=== PATIENT | male | born 1950 | race Caucasian/White ===

== ENCOUNTER 2020-03-25 06:37 | Outpatient (REF) | payer MEDICARE, SELFPAY ==
[2020-03-25 11:38] LABS: Hematocrit 42.2 % (42-52); Hemoglobin 13.9 g/dl (14.0-18.0); Mean Corpuscular HGB Conc 32.9 g/dl (31.0-36.0); Mean Corpuscular Hemoglobin 31.2 pg (27.0-33.0); Mean Corpuscular Volume 94.8 fL (80-98); Mean Platelet Volume 9.6 fL (9.4-12.4); Platelet Count 230 X10*3/uL (160-400); Red Blood Count 4.45 X10*6/uL (4.60-5.80); Red Cell Distribution Width 12.5 % (11.0-16.0); White Blood Count 5.2 X10*3/uL (4.8-10.8)
[2020-03-25 12:12] LABS: Alanine Aminotransferase 19 U/L (0-40); Albumin Level 4.2 g/dL (3.5-5.0); Alkaline Phosphatase 71 U/L (39-117); Anion Gap 10 (12-20); Aspartate Amino Transferase 21 U/L (5-37); Bilirubin Direct 0.3 mg/dL (0.0-0.5); Bilirubin Total 0.8 mg/dL (0.0-1.0); Blood Urea Nitrogen 20 mg/dL (9-16); Calcium 8.8 mg/dL (8.4-10.2); Carbon Dioxide 25 mmol/L (22-29); Chloride 110 mmol/L (96-108); Cholesterol 112 mg/dL; Estimated Glomerular Filt Rate > 60; Glucose Random 82 mg/dL (60-115); HDL Cholesterol 34 mg/dL; LDL Cholesterol Calculated 65 mg/dl; Potassium 4.9 mmol/l (3.3-5.1); Sodium 140 mmol/L (135-145); Total Protein 6.6 g/dL (6.5-8.0); Triglycerides 67 mg/dL
== END 2020-03-25 06:38 | disposition home or self-care (01) ==
LOC: HO.HMGCLDS 06:37
DX: I10 Essential (primary) hypertension (principal); E78.5 Hyperlipidemia, unspecified
CPT/HCPCS: 36415; 80053; 80061; 80076; 85027

== ENCOUNTER → 2020-04-26 09:21 | Outpatient (REF) | payer MEDICARE, SELFPAY ==
--- NOTE | 2020-04-26 09:30 | ECG_ITS ---
Hook-up date: 2020-04-26 09:41:00 Duration: 47:59:00 Test Indications: FREQUENT PVC'S Medications: 620861 QRS complexes 80 Ventricular ectopics which represent <1 % of total QRS comp. 293853 Supraventricular ectopics which represent 73 % of total QRS comp. * Paced QRS complexs which represent % of total QRS comp. VENTRICULAR ECTOPY 69 Isolated 0 Bigeminal Cycles 2 Couplets 2 Runs 7 Beats in Runs 4 Beats LONGEST at 137 BPM at 02:08:35 2020-04-28 3 Beats FASTEST at 166 BPM at 17:04:03 2020-04-26 SUPRAVENTRICULAR ECTOPY 51096 Isolated 4769 Couplets 8560 Runs 093202 Beats in Runs 1514 Beats LONGEST at 71 BPM at 10:16:44 2020-04-27 3 Beats FASTEST at 147 BPM at 16:19:54 2020-04-26 HEART RATES 42 MIN at 02:39:02 2020-04-27 62 AVG 145 MAX at 09:59:51 2020-04-26 LONGEST RR 0.9760 secs at 14:42:43 2020-04-26 S-T LEVELS Channel 1 - 128 mm at 09:41:00 2020-04-26 - 128 mm at 09:41:00 2020-04-26 Channel 2 - 128 mm at 09:41:00 2020-04-26 - 128 mm at 09:41:00 2020-04-26 Channel 3 - 128 mm at 02:90:01 -- - 128 mm at 02:90:01 Basic rhythm Normal sinus rhythm No long pause or profound bradycardia Very Frequent Premature atrial complexes Frequent runs of SVE's c/w PAT Rare Premature ventricular complexes 2 3-4 beats salvos of NSVT, fastest 3 beat at 166 bpm No diary submitted Referred By: Fior Cordero Overread By: SUMMER FLORES MD
--- NOTE | 2020-04-26 09:35 | ECG_ITS ---
Hook-up date: 2020-04-26 09:41:00 Duration: 47:59:00 Test Indications: FREQUENT PVC'S Medications: 782049 QRS complexes 80 Ventricular ectopics which represent <1 % of total QRS comp. 168397 Supraventricular ectopics which represent 71 % of total QRS comp. * Paced QRS complexs which represent % of total QRS comp. VENTRICULAR ECTOPY 69 Isolated 0 Bigeminal Cycles 2 Couplets 2 Runs 7 Beats in Runs 4 Beats LONGEST at 137 BPM at 02:08:35 2020-04-28 3 Beats FASTEST at 166 BPM at 17:04:03 2020-04-26 SUPRAVENTRICULAR ECTOPY 19772 Isolated 4906 Couplets 9454 Runs 815469 Beats in Runs 765 Beats LONGEST at 80 BPM at 12:27:21 2020-04-26 3 Beats FASTEST at 144 BPM at 19:34:34 2020-04-27 HEART RATES 42 MIN at 02:39:02 2020-04-27 62 AVG 145 MAX at 09:59:51 2020-04-26 LONGEST RR 0.9760 secs at 14:42:43 2020-04-26 S-T LEVELS Channel 1 - 128 mm at 09:41:00 2020-04-26 - 128 mm at 09:41:00 2020-04-26 Channel 2 - 128 mm at 09:41:00 2020-04-26 - 128 mm at 09:41:00 2020-04-26 Channel 3 - 128 mm at 02:90:01 -- - 128 mm at 02:90:01 Referred By: Fior Cordero Overread By:
== END ==
LOC: HO.CARD 09:21
DX: I49.3 Ventricular premature depolarization (principal)
CPT/HCPCS: 93225; 93226

== ENCOUNTER → 2020-05-15 08:19 | Outpatient (BNVA) | payer MEDICARE, SELFPAY | PROVIDERS: Visit Provider Physician Assistant | DX: E66.9 Obesity, unspecified (principal); Z68.30 Body mass index [BMI] 30.0-30.9, adult | CPT/HCPCS: 99212 ==

== ENCOUNTER → 2020-07-24 13:51 | Outpatient (BNVA) | payer MEDICARE, SELFPAY | PROVIDERS: PCP Nurse Practitioner Family; Visit Provider Internal Medicine | DX: I47.1 Supraventricular tachycardia (principal); I47.2 Ventricular tachycardia; I10 Essential (primary) hypertension; G47.33 Obstructive sleep apnea (adult) (pediatric) | CPT/HCPCS: 93005; 99202 ==

== ENCOUNTER 2020-08-22 06:43 | Outpatient (REF) | payer MEDICARE, SELFPAY ==
[2020-08-22 12:22] LABS: Prostate Specific Antigen Scr 2.37 ng/mL (<0.05-4.0); TSH reflex Free T4 1.27 uIU/mL (0.32-4.0)
[2020-08-22 12:28] LABS: Alanine Aminotransferase 17 U/L (0-40); Albumin Level 4.4 g/dL (3.5-5.0); Alkaline Phosphatase 74 U/L (39-117); Anion Gap 13 (12-20); Aspartate Amino Transferase 22 U/L (5-37); Bilirubin Total 0.7 mg/dL (0.0-1.0); Blood Urea Nitrogen 21 mg/dL (9-16); Calcium 9.3 mg/dL (8.4-10.2); Carbon Dioxide 25 mmol/L (22-29); Chloride 109 mmol/L (96-108); Cholesterol 124 mg/dL; Estimated Glomerular Filt Rate > 60; Glucose Fasting 77 mg/dL (60-99); HDL Cholesterol 39 mg/dL; LDL Cholesterol Calculated 72 mg/dl; Potassium 4.6 mmol/L (3.3-5.1); Sodium 142 mmol/L (135-145); Total Protein 7.1 g/dL (6.5-8.0); Triglycerides 66 mg/dL
== END 2020-08-22 06:44 | disposition home or self-care (01) ==
LOC: HO.HMGCLDS 06:43
PROVIDERS: PCP Nurse Practitioner Family; Visit Provider Nurse Practitioner Family
DX: I10 Essential (primary) hypertension (principal); Z12.5 Encounter for screening for malignant neoplasm of prostate
CPT/HCPCS: 36415; 80053; 80061; 84153; 84443

== ENCOUNTER → 2020-09-04 08:17 | Outpatient (REF) | payer MEDICARE, SELFPAY ==
--- NOTE | ~2020-09-04 | NM_ITS ---
Exercise Myocardial perfusion study Indication: Ventricular tachycardia Technique: The patient was brought in for an exercise perfusion study on 09/04/2020. Patient performed exercise as per Mike protocol and was injected 30 mCi of sestamibi was given intravenously one target HR was achieved. Images were obtained using the SPECT gamma camera interlaced with the gating device. Images were obtained in supine position. Resting perfusion study was performed on 09/05/2020. Patient was administered 30 mCi of sestamibi intravenously at rest. Images were then obtained in supine position. Images obtained with and without CT attenuation. Total DLP 86 mGy-cm. Images were processed with the software and compared side to side in short axis, horizontal long axis and vertical long axis views. Findings: The stress perfusion study showed non attenuated images show small area of mildly reduced uptake in the basal inferolateral and inferior wall of the LV myocardium. Remainder of the LV myocardium is normally perfused. Suggestion of left ventricle hypertrophy attenuation corrected images show normal uptake of radiotracer in all segments of LV myocardium. The gated study shows low normal LV systolic function with calculated LVEF of 61%. LV cavity is normal in size. The gated study shows normal systolic wall thickening and contraction of all segments. There is no transient ischemic dilation. Resting study shows no change in perfusion pattern compared to stress perfusion study. Gating at rest reveals normal systolic wall motion with ejection fraction at 51%. The findings are consistent with normal myocardial perfusion. NM/NM cardiolite stress test Impression: 1. Normal myocardial perfusion 2. Gated LVEF is 51% 3. Transient ischemic dilatation not present Stress EKG is negative for ischemia
--- NOTE | 2020-09-04 08:21 | CA_ITS ---
Transthoracic Echocardiogram Patient (Last, First, Middle): Jomar Cordova L Gender: Male Date of : 1950 Age: 69 Procedure Date: 09/04/2020 Procedure Type: Transthoracic Echocardiogram Location: OP Height: 165.1 cm Weight: 83.92 kg BSA: 1.91 m2 Heart Rate: bpm BP: 126 / 68 mmHg Printing Services Coordinator: Referring MD: Lorenzo Luis MD Supervisor Orchard: Flex Mckeon MD Symptoms: I47.2 - Ventricular tachycardia Study Quality: Good ECG Rhythm: Ventricular ectopic Conclusions: - 1. Normal LV systolic function with mild LVH with pseudonormal filling pattern with possible apical variant of hypertrophic cardiomyopathy 2. Mild aortic regurgitation 3. Normal RV systolic pressure 4. Mildly dilated ascending aorta at 3.8 cm 5. No pericardial effusion Findings Procedure Information Contrast agent, definity, is being given per protocol without apparent complications. Left Ventricle Normal left ventricular size and systolic function. There is mildly increased left ventricular wall thickness. The visually estimated ejection fraction is between 65-70%. Spectral Doppler is indicative of a pseudonormal filling pattern. E/E prime ratio is between 8 and 15 consistent with indeterminate filling pressures. There is mild apical asymmetric hypertrophy. There is hyperdynamic contractility of the apex with obliteration of apical cavity suggestive of possibly apical variant of hypertrophic cardiomyopathy. Right Ventricle Normal right ventricular cavity size and systolic function. Atria The left atrium is likely dilated. There is no evidence of interatrial shunt. The right atrium is normal in size. Aortic Valve Normal aortic valve structure and function. There is no aortic valve stenosis. There is mild aortic valve regurgitation. Mitral Valve Normal mitral valve structure and function. There is trace mitral valve regurgitation. There is no mitral valve stenosis. Pulmonic Valve The pulmonic valve was not well visualized. Tricuspid Valve Likely normal tricuspid valve structure and function. There is trace tricuspid valve regurgitation. The right ventricular systolic pressure is normal. The right ventricular systolic pressure is 18 mmHg. Normal right atrial pressure. There is no evidence of pulmonary hypertension. Great Vessels The pulmonary artery was not well visualized. There is mild dilatation of the ascending aorta measuring 3.80 cm. Venous The inferior vena cava is normal in size and collapses greater than 50% with inspiration. Pericardium/Pleural There is no evidence of pericardial effusion. Prior Study Comparison No previous study in the last 5 years for comparison Measurements 2D Linear Measurements IVSd: 1.37 0.6-0.9/0.6-1.0 cm LVIDd: 5.32 3.9-5.3/4.2-5.9 cm LVIDd Index: 2.79 2.4-3.2/2.2-3.1 cm/m2 LVIDs: 3.04 2.0-3.6 cm LVPWd: 1.34 0.7-1.1 cm Ao Root: 3.80 2.1-3.5 cm LA Diam: 4.00 2.7-3.8/3.0-4.0 cm LAIDs Index: 2.09 1.5-2.3 cm/m2 LV Mass: 381.90 67-162/88-224 g LV Mass Index: 199.95 43-95/49-115 g/m2 LVOT Diam: 2.30 3.0+(-)1.3 cm Mitral Valve MV Pk E: 0.68 MV PK A: 0.49 MV Decel Time: 239.00 E/A: 1.40 E'Lateral: 7.25 E'Medial: 5.22 E/E' Med: 13.00 E/E' Lat: 9.40 PHT: 70.00 MVA PHT: 3.14 Decel [place]: 2.84 Aortic Valve AoV Pk Nestor: 1.27 AoV Mn Nestor: 0.85 AoV VTI: 0.29 AoV Pk Grad: 6.00 Aov Mn Grad: 3.00 ANNIA Cont.VTI: 3.13 LVOT LVOT Pk Nestor: 1.03 LVOT Mn Nestor: 0.63 LVOT VTI: 0.22 LVOT Pk Grad: 4.00 LVOT Mn Grad: 2.00 LVOT Diam: 2.30 LVOT Area: 4.15 Diastolic Function MV Pk E: 0.68 MV Pk A: 0.49 E/A: 1.40 E'Medial: 5.22 E/E' Med: 13.00 E' Laterial: 7.25 E/E' Lat: 9.40 Tricuspid Valve TR Pk Nestor: 1.94 TR Pk Grad: 15.00 RA Press: 3.00 RVSP: 18.00 Great Vessels Aorta Ao Root-2D: 3.80 2.0-3.7 cm Ao Asc: 3.80 2.1-3.4 cm Updated in Other Vendor System with Status of Final Flex Mckeon MD electronically signed on 09/05/2020 5:02:16 PM with status of Final
--- NOTE | 2020-09-04 09:35 | CA_ITS ---
Acquisition Time: 2020-09-04 09:47:09 Total Exercise Time: 00:07:07 Test Indications: Abnormal ECG Medications: ATORVASTATIN DILTIAZEM IRON LISINOPRIL Protocol: JAZMYN Max HR: 127 BPM 84% of Pred: 151 BPM Max BP: 172/068 mmHG Max Work Load: 8.6 METS Exercise stress nuclear using Jazmyn protocol, total of 7 min 7 sec. METS 8.60 and TAPHR up to 84%. Pt tolerated well, some SOB, however no other anginal sx. EKG with T wave inversions inferirly and some anterior and lateral leads. No changes seen during exercise or in recovery. Nuclear images to follow. Normotensive response to exercise. Test reviewed with Dr. Mckeon. Referred By: Lorenzo Luis Overread By: Camille Smalls NP
== END ==
LOC: HO.CARD 08:17
PROVIDERS: Visit Provider Internal Medicine
DX: I47.2 Ventricular tachycardia (principal); R94.31 Abnormal electrocardiogram [ECG] [EKG]; Z79.899 Other long term (current) drug therapy
CPT/HCPCS: 78452; 93016; 93017; 93018; 93306; A9500; Q9957

== ENCOUNTER → 2020-09-24 10:49 | Outpatient (BNVA) | payer MEDICARE, SELFPAY | PROVIDERS: PCP Nurse Practitioner Family; Visit Provider Psychiatry & Neurology Neurology | DX: G47.33 Obstructive sleep apnea (adult) (pediatric) (principal) | CPT/HCPCS: 99215; Q3014 ==

== ENCOUNTER → 2020-10-01 14:03 | Outpatient (BNVA) | payer MEDICARE, SELFPAY | PROVIDERS: PCP Nurse Practitioner Family; Visit Provider Internal Medicine | DX: I47.1 Supraventricular tachycardia (principal); I47.2 Ventricular tachycardia; I10 Essential (primary) hypertension; G47.33 Obstructive sleep apnea (adult) (pediatric) | CPT/HCPCS: 99212 ==

== ENCOUNTER → 2020-10-08 13:51 | Outpatient (REF) | payer MEDICARE, SELFPAY | LOC: HO.SL 13:51 | PROVIDERS: PCP Nurse Practitioner Family; Visit Provider Psychiatry & Neurology Neurology | DX: G47.33 Obstructive sleep apnea (adult) (pediatric) (principal); I47.1 Supraventricular tachycardia | CPT/HCPCS: 95806 ==

== ENCOUNTER → 2020-12-03 08:55 | Outpatient (BNVA) | payer MEDICARE, SELFPAY | PROVIDERS: PCP Nurse Practitioner Family; Visit Provider Psychiatry & Neurology Neurology | CPT/HCPCS: Q3014 ==

== ENCOUNTER → 2021-02-18 10:20 | Outpatient (BNVA) | payer MEDICARE, SELFPAY | PROVIDERS: PCP Nurse Practitioner Family; Visit Provider Psychiatry & Neurology Neurology | DX: Z13.89 Encounter for screening for other disorder (principal) | CPT/HCPCS: Q3014 ==

== ENCOUNTER → 2021-04-08 12:49 | Outpatient (BNVA) | payer MEDICARE, SELFPAY | PROVIDERS: PCP Nurse Practitioner Family; Referring Provider Nurse Practitioner Family; Visit Provider Internal Medicine | DX: I47.1 Supraventricular tachycardia (principal); I47.2 Ventricular tachycardia; I10 Essential (primary) hypertension; G47.33 Obstructive sleep apnea (adult) (pediatric) | CPT/HCPCS: 99212 ==

== ENCOUNTER → 2021-05-06 10:26 | Outpatient (BNVA) | payer MEDICARE, SELFPAY | PROVIDERS: PCP Nurse Practitioner Family; Referring Provider Nurse Practitioner Family; Visit Provider Psychiatry & Neurology Neurology | CPT/HCPCS: Q3014 ==

== ENCOUNTER → 2021-05-21 08:16 | Outpatient (BNVA) | payer MEDICARE, SELFPAY | PROVIDERS: PCP Nurse Practitioner Family; Referring Provider Nurse Practitioner Family; Visit Provider Physician Assistant | DX: E66.9 Obesity, unspecified (principal); Z90.3 Acquired absence of stomach [part of]; Z98.84 Bariatric surgery status; Z68.31 Body mass index [BMI] 31.0-31.9, adult | CPT/HCPCS: 99212 ==

== ENCOUNTER 2021-05-22 07:29 | Outpatient (REF) | payer MEDICARE, SELFPAY ==
[2021-05-22 12:05] LABS: Vitamin D 25-OH Total 21.5 ng/mL (>30)
[2021-05-22 12:40] LABS: Folate > 20.0 ng/mL (> or = 4.0)
[2021-05-22 14:03] LABS: Vitamin B12 306 pg/mL (200-900)
[2021-05-26 09:01] LABS: Vitamin B1 24 nmol/L (8-30)
== END 2021-05-22 07:30 | disposition home or self-care (01) ==
LOC: HO.HMGCLDS 07:29
PROVIDERS: PCP Nurse Practitioner Family; Visit Provider Physician Assistant
DX: Z90.3 Acquired absence of stomach [part of] (principal); Z98.84 Bariatric surgery status
CPT/HCPCS: 36415; 82306; 82607; 82746; 84425

== ENCOUNTER → 2021-07-08 09:19 | Outpatient (BNVA) | payer MEDICARE, SELFPAY | PROVIDERS: PCP Nurse Practitioner Family; Referring Provider Nurse Practitioner Family; Visit Provider Psychiatry & Neurology Neurology | DX: G47.33 Obstructive sleep apnea (adult) (pediatric) (principal) | CPT/HCPCS: 99212 ==

== ENCOUNTER → 2021-08-19 20:47 | Outpatient (REF) | payer MEDICARE, SELFPAY | LOC: HO.SL 20:47 | PROVIDERS: PCP Nurse Practitioner Family; Visit Provider Psychiatry & Neurology Neurology | DX: G47.33 Obstructive sleep apnea (adult) (pediatric) (principal) | CPT/HCPCS: 95811 ==

== ENCOUNTER 2021-08-29 06:25 | Outpatient (REF) | payer MEDICARE, SELFPAY ==
[2021-08-29 11:49] LABS: Appearance Urine TURBID; Color Urine YELLOW; Glucose Urine UA NEG (NEG); Leukocyte Esterase Urine NEG (NEG); Nitrite Urine NEG (NEG); Specific Gravity - Urine >= 1.030 (1.005-1.025); Urine Blood NEG (NEG); Urine Ketones NEG (NEG); Urine Protein NEG (NEG-TRACE)
[2021-08-29 12:16] LABS: Alanine Aminotransferase 17 U/L (0-40); Albumin Level 4.1 g/dL (3.5-5.0); Alkaline Phosphatase 67 U/L (39-117); Anion Gap 12 (12-20); Aspartate Amino Transferase 23 U/L (5-37); Bilirubin Total 0.8 mg/dL (0.0-1.0); Blood Urea Nitrogen 18 mg/dL (9-16); Calcium 9.3 mg/dL (8.4-10.2); Carbon Dioxide 23 mmol/L (22-29); Chloride 112 mmol/L (96-108); Cholesterol 107 mg/dL; Estimated Glomerular Filt Rate > 60; Glucose Fasting 89 mg/dL (60-99); HDL Cholesterol 38 mg/dL; LDL Cholesterol Calculated 57 mg/dl; Potassium 4.6 mmol/L (3.3-5.1); Sodium 142 mmol/L (135-145); Total Protein 6.7 g/dL (6.5-8.0); Triglycerides 61 mg/dL
[2021-08-29 12:41] LABS: Prostate Specific Antigen Scr 2.28 ng/mL (<0.05-4.0); TSH reflex Free T4 1.27 uIU/mL (0.32-4.0)
== END 2021-08-29 06:26 | disposition home or self-care (01) ==
LOC: HO.HMGCLDS 06:25
PROVIDERS: Visit Provider Nurse Practitioner Family
DX: Z00.00 Encounter for general adult medical examination without abnormal findings (principal); Z12.5 Encounter for screening for malignant neoplasm of prostate
CPT/HCPCS: 36415; 80053; 80061; 81003; 84153; 84443

== ENCOUNTER → 2021-09-02 14:51 | Outpatient (REF) | payer MEDICARE, SELFPAY ==
--- NOTE | 2021-09-02 14:54 | HM_ITS ---
* Total monitoring time 2 days and 23 hours. * Underlying rhythm is sinus bradycardia. * Average rate 56/Min; range 42 to 96/Min. About 19% the time, rate less than 60/Min. * No atrial fibrillation or flutter or AV blocks or pauses. * Frequent supraventricular ectopy; burden of 6%. 209 runs. Longest 36 beats. * One strip with 8 beat run of VT could cannot exclude supraventricular origin. * No patient events. MTDD
== END ==
LOC: HO.CARD 14:51
PROVIDERS: Visit Provider Internal Medicine
DX: I47.1 Supraventricular tachycardia (principal)
CPT/HCPCS: 93242

== ENCOUNTER 2021-09-04 07:53 | Outpatient (REF) | payer MEDICARE, SELFPAY ==
[2021-09-04 11:16] LABS: MANUAL DIFF FLAG NO
[2021-09-04 11:26] LABS: Basophils Percent Auto 0.2 % (0-2); Eosinophils Absolute Auto 0.2 X10*3/uL (0.0-0.4); Eosinophils Percent Auto 2.8 % (0-4); Hematocrit 42.3 % (42.0-52.0); Hemoglobin 14.2 g/dl (14.0-18.0); Imm Gran Abs Auto 0.03 X10*3/uL (0.00-0.03); Imm Gran Pct Auto 0.5 % (0.0-0.4); Lymphocytes Absolute Auto 1.5 X10*3/uL (1.2-4.9); Lymphocytes Percent Auto 26.7 % (20-40); Mean Corpuscular HGB Conc 33.6 g/dl (31.0-36.0); Mean Corpuscular Hemoglobin 31.6 pg (27.0-33.0); Mean Platelet Volume 9.7 fL (9.4-12.4); Monocytes Absolute Auto 0.8 X10*3/uL (0.1-1.2); Monocytes Percent Auto 13.1 % (2-11); Neutrophils Absolute Auto 3.3 x10*3/uL (2.0-8.3); Neutrophils Percent Auto 56.7 % (45-73); Platelet Count 234 X10*3/uL (160-400); Red Cell Distribution Width 11.9 % (11.0-16.0); White Blood Count 5.7 X10*3/uL (4.8-10.8)
== END 2021-09-04 07:54 | disposition home or self-care (01) ==
LOC: HO.HMGCLDS 07:53
PROVIDERS: Visit Provider Nurse Practitioner Family
DX: G47.33 Obstructive sleep apnea (adult) (pediatric) (principal)
CPT/HCPCS: 36415; 85025

== ENCOUNTER → 2021-09-09 11:17 | Outpatient (BNVA) | payer MEDICARE, SELFPAY | PROVIDERS: PCP Nurse Practitioner Family; Visit Provider Psychiatry & Neurology Neurology | DX: G47.33 Obstructive sleep apnea (adult) (pediatric) (principal) | CPT/HCPCS: 99212 ==

== ENCOUNTER → 2021-09-26 09:18 | Outpatient (BNVA) | payer MEDICARE, SELFPAY | PROVIDERS: PCP Nurse Practitioner Family; Referring Provider Nurse Practitioner Family; Visit Provider Physician Assistant | DX: E66.9 Obesity, unspecified (principal); I10 Essential (primary) hypertension; E78.5 Hyperlipidemia, unspecified; Z90.3 Acquired absence of stomach [part of]; Z98.84 Bariatric surgery status; Z71.3 Dietary counseling and surveillance | CPT/HCPCS: 99212 ==

== ENCOUNTER → 2021-09-30 12:20 | Outpatient (BNVA) | payer MEDICARE, SELFPAY | PROVIDERS: PCP Nurse Practitioner Family; Referring Provider Nurse Practitioner Family; Visit Provider Internal Medicine | DX: I47.1 Supraventricular tachycardia (principal); I47.2 Ventricular tachycardia; I11.0 Hypertensive heart disease with heart failure; I42.2 Other hypertrophic cardiomyopathy; G47.33 Obstructive sleep apnea (adult) (pediatric) | CPT/HCPCS: 93005; 99212 ==

== ENCOUNTER → 2021-11-04 11:16 | Outpatient (BNVA) | payer MEDICARE, SELFPAY | PROVIDERS: PCP Nurse Practitioner Family; Visit Provider Psychiatry & Neurology Neurology | DX: G47.33 Obstructive sleep apnea (adult) (pediatric) (principal) | CPT/HCPCS: 99212 ==

== ENCOUNTER → 2021-11-14 08:37 | Outpatient (REF) | payer MEDICARE, SELFPAY ==
--- NOTE | 2021-11-14 08:40 | CA_ITS ---
Transthoracic Echocardiogram Patient (Last, First, Middle): Jomar Cordova L Gender: Male Date of : 1950 Age: 71 Procedure Date: 11/14/2021 Procedure Type: Transthoracic Echocardiogram Location: OP Height: 167.64 cm Weight: 87.54 kg BSA: 1.97 m2 Heart Rate: bpm BP: 130 / 70 mmHg Groundman/Lineman: SHIVANI Referring MD: Lorenzo Luis MD Symptoms: I42.2 - Other hypertrophic cardiomyopathy Study Quality: Fair/Contrast Conclusions: - 1. Normal LV systolic function with mild LVH with apical variant of hypertrophic cardiomyopathy with pseudonormal filling pattern 2. Trace aortic regurgitation 3. Normal RV systolic pressure 4. Mildly dilated ascending aorta at 4.1 cm 5. No gross pericardial effusion Findings Procedure Information Contrast agent, definity, is being given per protocol without apparent complications. Left Ventricle Normal left ventricular size and systolic function. There is mildly increased left ventricular wall thickness. The visually estimated ejection fraction is between 60-65%. Spectral Doppler is indicative of a pseudonormal filling pattern. E/E prime ratio is between 8 and 15 consistent with indeterminate filling pressures. There is moderate apical asymmetric hypertrophy. Right Ventricle Normal right ventricular cavity size and systolic function. Atria The left atrium is likely dilated. Interatrial shunt cannot be excluded. The right atrium is normal in size. Aortic Valve Normal aortic valve structure and function. There is no aortic valve stenosis. There is trace (trivial) aortic valve regurgitation. Mitral Valve Normal mitral valve structure and function. There is trace mitral valve regurgitation. There is no mitral valve stenosis. Pulmonic Valve The pulmonic valve is likely normal. There is trace pulmonic valve regurgitation. Tricuspid Valve Normal tricuspid valve structure. There is trace tricuspid valve regurgitation. The right ventricular systolic pressure is normal. The right ventricular systolic pressure is 24 mmHg. Normal right atrial pressure. There is no evidence of pulmonary hypertension. Great Vessels The pulmonary artery was not well visualized. There is mild dilatation of the ascending aorta measuring 4.10 cm. Venous The inferior vena cava is normal in size and collapses greater than 50% with inspiration. Pericardium/Pleural There is no evidence of pericardial effusion. Prior Study Comparison No significant change compared to prior study dated: 09/04/2020. Measurements 2D Linear Measurements IVSd: 1.21 0.6-0.9/0.6-1.0 cm LVIDd: 5.34 3.9-5.3/4.2-5.9 cm LVIDd Index: 2.71 2.4-3.2/2.2-3.1 cm/m2 LVIDs: 3.49 2.0-3.6 cm LVPWd: 1.19 0.7-1.1 cm LA Diam: 3.80 2.7-3.8/3.0-4.0 cm LAIDs Index: 1.93 1.5-2.3 cm/m2 LV Mass: 323.87 67-162/88-224 g LV Mass Index: 164.40 43-95/49-115 g/m2 LVOT Diam: 2.20 3.0+(-)1.3 cm 2D Systolic Function EF 4C: 69.30 >55% EF 2C: 60.90 >55% EF BiP: 64.50 >55% Mitral Valve MV Pk E: 0.79 MV PK A: 0.40 MV Decel Time: 227.00 E/A: 2.00 E'Lateral: 6.85 E'Medial: 6.09 E/E' Med: 12.90 E/E' Lat: 11.50 PHT: 66.00 MVA PHT: 3.33 Decel [place]: 3.47 Aortic Valve AoV Pk Nestor: 1.41 AoV Mn Nestor: 0.93 AoV VTI: 0.26 AoV Pk Grad: 8.00 Aov Mn Grad: 4.00 ANNIA Cont.VTI: 2.85 LVOT LVOT Pk Nestor: 0.92 LVOT Mn Nestor: 0.59 LVOT VTI: 0.20 LVOT Pk Grad: 3.00 LVOT Mn Grad: 2.00 LVOT Diam: 2.20 LVOT Area: 3.80 Diastolic Function MV Pk E: 0.79 MV Pk A: 0.40 E/A: 2.00 E'Medial: 6.09 E/E' Med: 12.90 E' Laterial: 6.85 E/E' Lat: 11.50 Right Ventricle TAPSE (mm): 20.40 TVS' Nestor: 15.10 Tricuspid Valve TR Pk Nestor: 2.31 TR Pk Grad: 21.00 RA Press: 3.00 RVSP: 24.00 Great Vessels Aorta Sinus of Valsalva: 3.83 2.0-3.[address] [place]: 3.63 1.7-3.4 cm Ao Asc: 4.10 2.1-3.4 cm Ao Arch: 3.40 Updated in Other Vendor System with Status of Final Flex Mckeon MD electronically signed on 11/14/2021 2:51:07 PM with status of Final
== END ==
LOC: HO.CARD 08:37
PROVIDERS: PCP Nurse Practitioner Family; Visit Provider Internal Medicine
DX: I42.2 Other hypertrophic cardiomyopathy (principal)
CPT/HCPCS: 93306; Q9957

== ENCOUNTER → 2022-03-27 09:17 | Outpatient (BNVA) | payer MEDICARE, SELFPAY | PROVIDERS: PCP Nurse Practitioner Family; Referring Provider Nurse Practitioner Family; Visit Provider Physician Assistant | DX: E66.9 Obesity, unspecified (principal); Z68.32 Body mass index [BMI] 32.0-32.9, adult | CPT/HCPCS: 99212 ==

== ENCOUNTER → 2022-04-01 12:31 | Outpatient (BNVA) | payer MEDICARE, SELFPAY | PROVIDERS: PCP Nurse Practitioner Family; Referring Provider Nurse Practitioner Family; Visit Provider Internal Medicine | DX: I47.1 Supraventricular tachycardia (principal); I42.2 Other hypertrophic cardiomyopathy; I10 Essential (primary) hypertension; I71.21 Aneurysm of the ascending aorta, without rupture; G47.33 Obstructive sleep apnea (adult) (pediatric) | CPT/HCPCS: 99212 ==

== ENCOUNTER → 2022-05-05 14:02 | Outpatient (BNVA) | payer MEDICARE, SELFPAY | PROVIDERS: PCP Nurse Practitioner Family; Visit Provider Psychiatry & Neurology Neurology | DX: G47.33 Obstructive sleep apnea (adult) (pediatric) (principal) | CPT/HCPCS: 99212 ==

== ENCOUNTER 2023-03-11 07:19 | Outpatient (REF) | payer MEDICARE, SELFPAY ==
[2023-03-11 11:33] LABS: MANUAL DIFF FLAG NO
[2023-03-11 11:46] LABS: Basophils Percent Auto 0.2 % (0-2); Eosinophils Absolute Auto 0.2 X10*3/uL (0.0-0.4); Eosinophils Percent Auto 3.2 % (0-4); Hematocrit 44.3 % (42.0-52.0); Hemoglobin 14.7 g/dl (14.0-18.0); Imm Gran Abs Auto 0.01 X10*3/uL (0.00-0.03); Imm Gran Pct Auto 0.2 % (0.0-0.4); Lymphocytes Absolute Auto 1.1 X10*3/uL (1.2-4.9); Lymphocytes Percent Auto 22.6 % (20-40); Mean Corpuscular HGB Conc 33.2 g/dl (31.0-36.0); Mean Corpuscular Hemoglobin 31.1 pg (27.0-33.0); Mean Corpuscular Volume 93.9 fL (80.0-98.0); Mean Platelet Volume 9.6 fL (9.4-12.4); Monocytes Absolute Auto 0.6 X10*3/uL (0.1-1.2); Monocytes Percent Auto 12.7 % (2-11); Neutrophils Absolute Auto 3.1 x10*3/uL (2.0-8.3); Neutrophils Percent Auto 61.1 % (45-73); Platelet Count 220 X10*3/uL (160-400); Red Blood Count 4.72 X10*6/uL (4.60-5.80); Red Cell Distribution Width 12.8 % (11.0-16.0); White Blood Count 5.1 X10*3/uL (4.8-10.8)
[2023-03-11 12:00] LABS: Appearance Urine Turbid; Color Urine Yellow; Glucose Urine UA Negative (Negative); Leukocyte Esterase Urine Negative (Negative); Nitrite Urine Negative (Negative); Specific Gravity - Urine 1.025 (1.005-1.025); Urine Blood Negative (Negative); Urine Ketones Negative (Negative); Urine Protein Negative (Neg-Trace)
[2023-03-11 12:15] LABS: Alanine Aminotransferase 22 U/L (0-40); Alkaline Phosphatase 72 U/L (39-117); Anion Gap 12 (12-20); Aspartate Amino Transferase 26 U/L (5-37); Blood Urea Nitrogen 17 mg/dL (9-16); Calcium 9.5 mg/dL (8.4-10.2); Carbon Dioxide 24 mmol/L (22-29); Chloride 110 mmol/L (96-108); Cholesterol 117 mg/dL (<200); Estimated Glomerular Filt Rate > 60; Glucose Fasting 86 mg/dL (60-99); HDL Cholesterol 37 mg/dL (>40); LDL Cholesterol Calculated 68 mg/dL (<100); Sodium 141 mmol/L (135-145); Total Protein 7.3 g/dL (6.5-8.0); Triglycerides 62 mg/dL (<150)
[2023-03-11 12:26] LABS: Prostate Specific Antigen Scr 2.89 ng/mL (<0.05-4.0)
[2023-03-11 12:30] LABS: TSH reflex Free T4 1.11 uIU/mL (0.32-4.0)
== END 2023-03-11 07:20 | disposition home or self-care (01) ==
LOC: HO.HMGCLDS 07:19
PROVIDERS: PCP Nurse Practitioner Family; Visit Provider Nurse Practitioner Family
DX: Z00.00 Encounter for general adult medical examination without abnormal findings (principal); Z12.5 Encounter for screening for malignant neoplasm of prostate; Z20.2 Contact with and (suspected) exposure to infections with a predominantly sexual mode of transmission; I10 Essential (primary) hypertension; E78.5 Hyperlipidemia, unspecified
CPT/HCPCS: 36415; 80053; 80061; 81003; 84153; 84443; 85025

== ENCOUNTER 2023-04-01 10:07 | Outpatient (AMB) | payer MEDICARE, SELFPAY ==
--- NOTE | 2023-04-01 10:19 | MHC.OFFVIS ---
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 Has a history of supraventricular arrhythmias as well as NSVT. Also echocardiogram had shown apical variant of hypertrophic cardiomyopathy. From cardiac, no symptoms like angina or shortness of breath or in fact anything else. He states he is doing good. [facility] Medical History Essential hypertension Hx of skin cancer, basal cell BARTOLO (obstructive sleep apnea) Surgical History Hx of colonoscopy Hx of hernia repair Hx of arthroscopic knee surgery Family History Father No problems noted. Mother No problems noted. Brother Parkinson disease Brother No problems noted. Sister Pacemaker Sister No problems noted. Son No problems noted. Social History Household Members: [facility] Alcohol intake: never Patient Tobacco Use Status: Never used Tobacco e-Cigarette/Vaping Use: Never Used Second Hand Smoke Exposure: No Current occupational status: retired Cognitive needs: No Hearing needs: No Vision needs: No Review of Systems Const Denies weakness ENT Denies dizziness Card Denies chest pain, Denies chest pain with activity, Denies syncope, Denies rapid heart rate, Denies pedal edema, Denies edema, Denies leg edema, Denies lightheadedness, Denies palpitations, Denies dyspnea, Denies dyspnea on exertion and Denies orthopnea Resp Denies cough, Denies dyspnea and Denies dyspnea on exertion GI Denies hematochezia and Denies change in stool character Musc Denies abnormal gait, Denies muscle cramps, Denies muscle weakness, Denies numbness, Denies radiating pain into limb and Denies tingling Neuro Denies abnormal gait, Denies dizziness, Denies syncope, Denies numbness, Denies tingling and Denies weakness Endo Denies palpitations Physical Exam Vital Signs: Last Vital Signs Pulse 63 04/01/23 10:21 BP 112/76 04/01/23 10:21 BMI result Body Mass Index 33.1 Const General: comfortable and no acute distress Orientation/consciousness: patient oriented x3 HEENT Other: Unremarkable Head: Yes normal to inspection Neck Neck: Yes normal visual inspection Chest Chest palpation & inspection: normal inspection of the chest Resp Auscultation: clear to auscultation bilaterally Cardio Palpation: normal PMI Heart sounds: S1 normal heart sound present, S2 normal heart sound present, no gallops, no murmurs and no rubs GI Palpation (GI): Soft to palpation Back/Spine/Pelvis Other: unremarkable Skin General skin exam: no rashes or lesions noted Neuro General: patient oriented x3 Extrem General: Yes normal to inspection Psych Mental Status: mental status grossly normal Assessment & Plan Assessment & Plan (1) Atrial tachycardia: Code(s): I47.1 - Supraventricular tachycardia Plan: Continue diltiazem. Increased chance of getting atrial fibrillation the future. (2) NSVT (nonsustained ventricular tachycardia): Code(s): I47.2 - Ventricular tachycardia Plan: In the Holter, 1 strip of 8 beat run but could not exclude supraventricular nature. No symptoms either. Does not appear to be of major significance. Myocardial perfusion imaging study shows normal perfusion. In the exercise stress test, he was able to exercise for 8.6 Mets without any significant arrhythmias. (3) Apical variant hypertrophic cardiomyopathy: Code(s): I42.2 - Other hypertrophic cardiomyopathy Plan: Echocardiograms have been thought to be suggestive of apical asymmetric hypertrophy. No specific symptoms. We can recheck another study. Also discussed about family screening today. (4) Essential hypertension: Code(s): I10 - Essential (primary) hypertension Plan: Continue lisinopril. Seems stable. (5) Ascending aortic aneurysm: Code(s): I71.21 - Aneurysm of the ascending aorta, without rupture Qualifiers: Presence of rupture: without rupture Qualified Code(s): I71.21 - Aneurysm of the ascending aorta, without rupture Plan: In the echocardiogram, ascending aortic size was 4.1 cm. Repeat echocardiogram to monitor size. (6) BARTOLO (obstructive sleep apnea): Code(s): G47.33 - Obstructive sleep apnea (adult) (pediatric) Plan: Continue CPAP. Orders: Orders CA echo transthoracic complete Today I42.2 - Other hypertrophic cardiomyopathy, I71.21 - Aneurysm of the ascending aorta, without rupture Coding Level of Care Code Est Pt Level 4 (60889) Diagnoses Atrial tachycardia I47.1 NSVT (nonsustained ventricular tachycardia) I47.2 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 Essential hypertension I10 Aneurysm of ascending aorta without rupture I71.21 Presence of rupture: without rupture BARTOLO (obstructive sleep apnea) G47.33
[2023-04-01 10:21] VITALS: BP 112/76; PULSE 63; BMI 33.1
== END 2023-04-01 10:38 | disposition home or self-care (01) ==
PROVIDERS: PCP Nurse Practitioner Family; Visit Provider Internal Medicine
DX: I47.1 Supraventricular tachycardia (principal); I47.20 Ventricular tachycardia, unspecified; I42.2 Other hypertrophic cardiomyopathy; I10 Essential (primary) hypertension; I71.21 Aneurysm of the ascending aorta, without rupture; G47.33 Obstructive sleep apnea (adult) (pediatric)
CPT/HCPCS: 93010; 99214

== ENCOUNTER → 2023-04-01 10:07 | Outpatient (BNVA) | payer MEDICARE, SELFPAY | PROVIDERS: PCP Nurse Practitioner Family; Visit Provider Internal Medicine | DX: I47.10 Supraventricular tachycardia, unspecified (principal); I47.20 Ventricular tachycardia, unspecified; I42.2 Other hypertrophic cardiomyopathy; I10 Essential (primary) hypertension; I71.21 Aneurysm of the ascending aorta, without rupture; G47.33 Obstructive sleep apnea (adult) (pediatric); Z79.899 Other long term (current) drug therapy; Z99.89 Dependence on other enabling machines and devices | CPT/HCPCS: 93005; 99212 ==

== ENCOUNTER 2023-05-04 12:48 | Outpatient (AMB) | payer MEDICARE, SELFPAY ==
--- NOTE | 2023-05-04 12:50 | MHC.OFFVIS ---
Intake Vital Signs 05/04/23 12:52 Height 5 ft 5 in Weight 200 lb 8 oz BMI 33.4 BP 116/72 Blood Pressure Location Rt brachial Position Sitting Respiration 15 Pulse 58 Pulse Source Pulse Oximeter Pulse Oximetry (%) 98 Oxygen Delivery Method Room Air Intake Visit Reasons: 1 yr f/u appt - Confirmed Intake Note: Pt presents to the office for a one year follow up of BARTOLO. He reports he has been doing good. He has been compliant with use of his CPAP. 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 Sleep study was done on 10/08/2020 Results- AHI 35 O2 alex 79 He had a CPAP titration study. He was trialed from pressures of CPAP 6-10 cm of water he was not able to tolerate pressure is higher than 10 cm. However he said he was able to sleep better with a nasal pillow . He is doing better on CPAP 11 cm of water. Compliance 92% AHI 9/hr daily hours 8hrs PFSH Medical History (Updated 05/04/23 @ 13:06 by Jennifer Loja MD) Restless legs syndrome (RLS) BARTOLO (obstructive sleep apnea) Essential hypertension Hx of skin cancer, basal cell Surgical History Hx of colonoscopy Hx of hernia repair Hx of arthroscopic knee surgery Family History Father No problems noted. Mother No problems noted. Brother Parkinson disease Brother No problems noted. Sister Pacemaker Sister No problems noted. Son No problems noted. Social History Household Members: Spouse Housing: Condominium Alcohol intake: never Patient Tobacco Use Status: Never used Tobacco e-Cigarette/Vaping Use: Never Used Second Hand Smoke Exposure: No Current occupational status: retired Cognitive needs: No Hearing needs: No Vision needs: No Questionnaire Short SAQLI Sleep Heart Health Study (Short SAQLI) How much of the time have you had to push yourself to remain alert during a typical day (e.g. work, school, childcare, housework)?: Not at all How often have you had to use all of your energy to accomplish your most important activity (e.g. work, school, childcare, housework)?: A small to moderate amount of the time How much difficulty have you had finding the energy to do other activities (e.g. exercise, relaxing activities)?: No difficulty How much difficulty have you had fighting to stay awake?: A small amount How much of a problem has it been to be told that your snoring is irritating?: I do not snore How much of a problem have frequent conflicts or arguments been?: No problem How often have you looked for excuses for being tired?: Never How often have you not wanted to do things with your family and/or friends: Never How often have you felt depressed, down or hopeless?: Never How often have you been impatient?: Never How much of a problem has it been to cope with every day issues?: No problem How much of a problem have you had with decreased energy?: No problem How much of a problem have you had with fatigue?: No problem How much of a problem have you have waking up feeling refreshed?: No problem Total Score: 3 Physical Exam Vital Signs: Last Vital Signs Pulse 58 05/04/23 12:52 Resp 15 05/04/23 12:52 BP 116/72 05/04/23 12:52 Pulse Ox 98 05/04/23 12:52 Oxygen Delivery Method Room Air 05/04/23 12:52 BMI result Body Mass Index 33.4 Const General: comfortable and no acute distress Orientation/consciousness: patient oriented x3 HEENT Other: Unremarkable Head: Yes normal to inspection Neck Neck: Yes normal visual inspection Chest Chest palpation & inspection: normal inspection of the chest Resp Auscultation: clear to auscultation bilaterally Cardio Palpation: normal PMI Heart sounds: S1 normal heart sound present, S2 normal heart sound present, no gallops, no murmurs and no rubs Back/Spine/Pelvis Other: unremarkable Skin General skin exam: no rashes or lesions noted Neuro General: patient oriented x3 Extrem General: Yes normal to inspection Psych Mental Status: mental status grossly normal Assessment & Plan Assessment & Plan (1) BARTOLO (obstructive sleep apnea): Code(s): G47.33 - Obstructive sleep apnea (adult) (pediatric) (2) Restless legs syndrome (RLS): Code(s): G25.81 - Restless legs syndrome Plan CPAP compliance stressed Change CPAP to 11 cm of water Continue using chin strap to help with his mouth opening Continue gabapentin 300mg qhs for restless sleepPRN Coding Level of Care Code Est Pt Level 4 (76764) Diagnoses BARTOLO (obstructive sleep apnea) G47.33 Restless legs syndrome (RLS) G25.81
[2023-05-04 12:52] VITALS: BP 116/72; PULSE 58; RESP 15; O2SAT 98; BMI 33.4
== END 2023-05-04 13:07 | disposition home or self-care (01) ==
PROVIDERS: Visit Provider Psychiatry & Neurology Neurology
DX: G47.33 Obstructive sleep apnea (adult) (pediatric) (principal); G25.81 Restless legs syndrome
CPT/HCPCS: 99214

== ENCOUNTER → 2023-05-04 12:48 | Outpatient (BNVA) | payer MEDICARE, SELFPAY | PROVIDERS: Visit Provider Psychiatry & Neurology Neurology | DX: G47.33 Obstructive sleep apnea (adult) (pediatric) (principal); G25.81 Restless legs syndrome | CPT/HCPCS: 99212 ==

== ENCOUNTER → 2023-05-10 12:48 | Outpatient (REF) | payer MEDICARE, SELFPAY ==
--- NOTE | 2023-05-10 12:58 | CA_ITS ---
Transthoracic Echocardiogram Patient (Last, First, Middle): Jomar Cordova L Gender: Male Date of : 1950 Age: 72 Procedure Date: 05/10/2023 Procedure Type: Transthoracic Echocardiogram Location: OP Height: 167.64 cm Weight: 86.18 kg BSA: 1.96 m2 Heart Rate: 59 bpm BP: 120 / 70 mmHg Softlines Supervisor: ELICIA Referring MD: Lorenzo Luis MD Symptoms: I42.2 - Other hypertrophic cardiomyopathy Study Quality: Fair/w Contrast ECG Rhythm: Atrial Fibrillation Conclusions: - The left ventricular systolic function is normal. The calculated ejection fraction is 70% by biplane method. - There is moderate apical asymmetric hypertrophy. - Ascending aortic size measured as 4.8 cm, but not clear if it is a true measurement. Findings Procedure Information Contrast agent, definity, is being given per protocol without apparent complications. Left Ventricle Normal left ventricular cavity size. The left ventricular systolic function is normal. The calculated ejection fraction is 70% by biplane method. There is no evidence of regional wall motion abnormalities. Diastolic function is normal for age. There is moderate apical asymmetric hypertrophy. Right Ventricle Normal right ventricular cavity size and systolic function. Atria Both atria are normal in size. Aortic Valve There is a normal trileaflet aortic valve. There is no aortic valve stenosis. There is no aortic valve regurgitation. Mitral Valve The mitral valve appears normal. There is trace mitral valve regurgitation. There is no mitral valve stenosis. Pulmonic Valve The pulmonic valve is likely normal. Tricuspid Valve There is mild tricuspid valve regurgitation. There is no evidence of pulmonary hypertension. Great Vessels The aorta was not well visualized. There is mild dilatation of the sinuses of Valsalva measuring 4.20 cm. Ascending aortic size measured as 4.8 cm, but not clear if it is a true measurement. Venous The inferior vena cava is normal in size and collapses greater than 50% with inspiration. Pericardium/Pleural There is no evidence of pericardial effusion. Prior Study Comparison Changes noted compared to prior study dated: 11/14/2021. see comment on aorta. Measurements 2D Linear Measurements IVSd: 1.29 0.6-0.9/0.6-1.0 cm LVIDd: 5.04 3.9-5.3/4.2-5.9 cm LVIDd Index: 2.57 2.4-3.2/2.2-3.1 cm/m2 LVIDs: 3.06 2.0-3.6 cm LVPWd: 1.04 0.7-1.1 cm LA Diam: 3.90 2.7-3.8/3.0-4.0 cm LAIDs Index: 1.99 1.5-2.3 cm/m2 LV Mass: 283.18 67-162/88-224 g LV Mass Index: 144.48 43-95/49-115 g/m2 LVOT Diam: 2.20 3.0+(-)1.3 cm 2D Systolic Function EF 4C: 65.10 >55% EF 2C: 75.40 >55% EF BiP: 69.60 >55% Mitral Valve MV Pk E: 0.91 MV Decel Time: 153.00 E'Lateral: 7.29 E'Medial: 6.42 E/E' Med: 14.10 E/E' Lat: 12.40 PHT: 45.00 MVA PHT: 4.89 Decel [place]: 6.44 Aortic Valve AoV Pk Nestor: 1.24 AoV Mn Nestor: 0.87 AoV VTI: 0.27 AoV Pk Grad: 6.00 Aov Mn Grad: 3.00 ANNIA Cont.VTI: 2.53 LVOT LVOT Pk Nestor: 1.00 LVOT Mn Nestor: 0.64 LVOT VTI: 0.18 LVOT Pk Grad: 4.00 LVOT Mn Grad: 2.00 LVOT Diam: 2.20 LVOT Area: 3.80 Diastolic Function MV Pk E: 0.91 E'Medial: 6.42 E/E' Med: 14.10 E' Laterial: 7.29 E/E' Lat: 12.40 Right Ventricle TAPSE (mm): 20.90 TVS' Nestor: 16.00 Tricuspid Valve TR Pk Nestor: 2.40 TR Pk Grad: 23.00 RA Press: 3.00 RVSP: 26.00 Great Vessels Aorta Sinus of Valsalva: 4.20 2.0-3.5 cm Ao Asc: 4.80 2.1-3.4 cm Pulmonary Valve PV Pk Nestor: 0.86 Peak PV Grad: 3.00 Updated in Other Vendor System with Status of Final Lorenzo Luis MD electronically signed on 05/10/2023 4:38:22 PM with status of Final
== END ==
LOC: HO.CARD 12:48
PROVIDERS: PCP Nurse Practitioner Family; Visit Provider Internal Medicine
DX: I42.2 Other hypertrophic cardiomyopathy (principal); I71.21 Aneurysm of the ascending aorta, without rupture
CPT/HCPCS: 93306; Q9957

== ENCOUNTER → 2023-05-10 12:58 | Outpatient (BNV) | payer MEDICARE, SELFPAY | PROVIDERS: PCP Nurse Practitioner Family; Visit Provider Internal Medicine | DX: I42.2 Other hypertrophic cardiomyopathy (principal) | CPT/HCPCS: 93306 ==

== ENCOUNTER 2023-05-27 08:30 | Outpatient (AMB) | payer MEDICARE, SELFPAY ==
--- NOTE | 2023-05-27 08:40 | A.OFFPC_ITS ---
Vital Signs 05/27/23 08:41 Height 5 ft 5 in Weight 204 lb BMI 33.9 BP 114/78 Blood Pressure Location Rt brachial Position Sitting Pulse 55 Pulse Source Pulse Oximeter Pulse Oximetry (%) 96 Oxygen Delivery Method Room Air Intake Visit Reasons: 6m follow up Allergies No Known Allergies [No Known Allergies*] Allergy (Verified 05/27/23 08:41) Tobacco use date assessed: 11/19/22 HPI 6m follow up HPI Details HTN: Blood pressure is stable, managed with diltiazem 120mg bid and lisinopril 10mg. Denies chest pain, shortness of breath, headache, dizziness, and blurred vision. Hx of dilated ascending aorta, he is seeing cardiology for this. CT scan has been ordered. PSA is up to date. Denies dribbling with urination, weak stream, and frequent nocturia. Informated pt that he can obtain his shingles vaccine at his pharmacy. NOTE: PT is due for a repeat colon screen, he is on GI's list for repeat. [facility] Medical History Restless legs syndrome (RLS) BARTOLO (obstructive sleep apnea) Essential hypertension Hx of skin cancer, basal cell Surgical History Hx of colonoscopy Hx of hernia repair Hx of arthroscopic knee surgery Family History Father No problems noted. Mother No problems noted. Brother Parkinson disease Brother No problems noted. Sister Pacemaker Sister No problems noted. Son No problems noted. Social History Household Members: [facility] Alcohol intake: never Patient Tobacco Use Status: Never used Tobacco e-Cigarette/Vaping Use: Never Used Second Hand Smoke Exposure: No Current occupational status: retired Cognitive needs: No Hearing needs: No Vision needs: No Questionnaire Thrive Questionnaire Date Thrive assessed: 08/21/21 SEVERO-7 AMB Questionnaire SEVERO-7 Date SEVERO - 7 assessed: 08/21/21 Source: Developed by Drs. Turner Jennings, Aleena Middleton, Ezio Trujillo and colleagues, with an educational valerie from [employer]. Review of Systems Const Reports as per HPI Physical exam (Primary Care) Vital Signs: Last Vital Signs Pulse 55 05/27/23 08:41 BP 114/78 05/27/23 08:41 Pulse Ox 96 05/27/23 08:41 Oxygen Delivery Method Room Air 05/27/23 08:41 BMI result Body Mass Index 33.9 Tobacco/Smoking Status: Tobacco use Status Tobacco use date assessed 11/19/22 05/27/23 08:40 Patient Tobacco Use Status Never used Tobacco 05/27/23 08:40 e-Cigarette/Vaping Use Never Used 05/27/23 08:40 Thrive Assessment: Date of Thrive Assessment Date Thrive assessed 08/21/21 05/27/23 08:40 Const General: cooperative Nutritional Appearance: obese Orientation/consciousness: patient oriented x3 Resp Effort & Inspection: normal respiratory effort Auscultation: clear to auscultation bilaterally Cardio Rate: regular rate Rhythm: regular rhythm Heart sounds: S1 normal heart sound present and S2 normal heart sound present Neuro General: patient oriented x3 Extrem Right lower extremity: no edema Left lower extremity: no edema Psych Appearance: grossly normal Mental Status: mental status grossly normal Speech and movement: Normal speech and movement present Affect: normal affect Attitude: cooperative Thought process: Normal thought process present Thought content: Normal thought content present Insight: Good insight present (Psych) Judgement: Good judgement present (Psych) Immunizations pneumoc 20-sarthak conj-dip cr(PF) 0.5 mL IM syringe Performing Provider: JANETT Pastor Performing Location: [facility] Primary [facility] Administered by: JENSEN Barrios on 05/27/23 09:11 Dose Route Admin Location Dispensed Lot Number Expiration Date NDC [employer] Supervisor 0.5 mL IM Right Deltoid 0.5 mL [id number] 02/18/24 0776-3592-06 [employer] VIS Given Date VIS Provided VIS Publication Date 05/27/23 Single Vaccine 21 Eligibility Eligibility Date Funding Source Not [facility] Eligible 05/27/23 Private Assessment and Plan Assessment & Plan (1) Ascending aortic aneurysm: Code(s): I71.21 - Aneurysm of the ascending aorta, without rupture Qualifiers: Presence of rupture: without rupture Qualified Code(s): I71.21 - Aneurysm of the ascending aorta, without rupture Plan: CT scan ordered (2) Essential hypertension: Code(s): I10 - Essential (primary) hypertension Plan: stable currently Plan The patient agreed to the use of a medical assistant internal medicine for this encounter. Scribed for JANETT Goldstein by Radha Salcedo medical assistant internal medicine, on 05/27/2023 at 09:00 EST. Orders: Orders Pneumococcal 20 Immunization Today Z23 - Encounter for immunization Coding Level of Care Code Est Pt Level 3 (11588) Diagnoses Aneurysm of ascending aorta without rupture I71.21 Presence of rupture: without rupture Essential hypertension I10
[2023-05-27 08:41] VITALS: BP 114/78; PULSE 55; O2SAT 96; BMI 33.9
== END 2023-05-27 10:20 | disposition home or self-care (01) ==
PROVIDERS: PCP Nurse Practitioner Family; Visit Provider Nurse Practitioner Family
DX: I71.21 Aneurysm of the ascending aorta, without rupture (principal); I10 Essential (primary) hypertension; Z23 Encounter for immunization
CPT/HCPCS: 90471; 90677; 99213

== ENCOUNTER 2023-06-18 08:10 | Outpatient (REF) | payer MEDICARE, SELFPAY ==
--- NOTE | ~2023-06-18 | CT_ITS ---
EXAMINATION: CT OF THE CHEST WITHOUT CONTRAST CLINICAL INFORMATION: Aneurysm of ascending aorta. COMPARISON: Chest x-ray 12/16/2018. TECHNIQUE: Noncontrast chest CT was performed. Limited expiratory images were also obtained. DOSE LOWERING TECHNIQUES: This CT examination was performed using dose optimization techniques as appropriate, variously including the following: - Automated exposure control - Adjustment of mA and/or kV according to patient size (this includes techniques or standardized protocols for targeted exams where dose is matched to indication/reason for exam; i.e. extremities or head) - Use of iterative construction technique DOSE-LENGTH PRODUCT: 256 mGycm FINDINGS: CORONARY ARTERIES: Significant three-vessel coronary calcium. ASCENDING AORTA: The ascending aorta measures 4.6 cm in diameter at the level of the pulmonary artery. AORTIC ARCH: The mid aortic arch measures 2.8 cm. Three-vessel arch anatomy. Mild atherosclerosis in the proximal left subclavian artery. DESCENDING AORTA: The proximal segment measures 2.5 cm. The distal segment measures 2.6 cm. INCLUDED UPPER ABDOMINAL AORTA: The upper abdominal aorta measures 2.7 cm. PULMONARY ARTERIES: Main pulmonary artery measures 3.1 cm with mPA to Ao ratio of 0.7. LUNG: Diffusely thick-walled airways consistent with chronic airways disease. Mosaic attenuation on consistent with air trapping. No suspicious pulmonary nodules. PLEURA: No pleural effusion or pneumothorax. MEDIASTINUM: No adenopathy or pericardial effusion. CHEST WALL/AXILLA: No axillary or internal mammary lymphadenopathy. OSSEOUS STRUCTURES: No acute or suspicious osseous abnormality. UPPER ABDOMEN: Simple hepatic cysts. Fatty attenuation of the pancreas. Simple cyst upper left kidney. No imaging follow-up recommended. Degenerative changes in the spine. CT/CT chest wo con - High Res IMPRESSION: Ascending aortic aneurysm measuring 4.6 cm. Main pulmonary artery measuring 3.1 cm. Correlate clinically for pulmonary arterial hypertension. Diffusely thick-walled airways and mosaic attenuation suggesting air trapping and chronic airways disease. The possibility of an interstitial lung disease with geographic groundglass is a possibility. The imaging pattern is nonspecific. Clinical correlation is necessary. Fleischner guidelines were followed.
== END 2023-06-18 08:11 | disposition home or self-care (01) ==
LOC: HO.CT 08:10
PROVIDERS: PCP Nurse Practitioner Family; Visit Provider Internal Medicine
DX: I71.21 Aneurysm of the ascending aorta, without rupture (principal)
CPT/HCPCS: 71250

== ENCOUNTER 2023-08-06 14:40 | Outpatient (AMB) | payer MEDICARE, SELFPAY ==
--- NOTE | 2023-08-06 14:44 | MHC.OFFVIS ---
Intake Vital Signs 08/06/23 14:45 Height 5 ft 5 in Weight 203 lb 14.841 oz BMI 33.9 BP 130/68 Blood Pressure Location Rt brachial Position Sitting Pulse 57 Pulse Source Pulse Oximeter Pulse Oximetry (%) 98 Oxygen Delivery Method Room Air Intake Visit Reasons: incidental finding on CT scan Intake Note: pt is here as a new patient, for follow up on ct scan and feels great!pt is on cpap followed by sleep and neurology. 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 The patient is 72-year-old gentleman known history of obstructive sleep apnea on CPAP, cardiac arrhythmias and also an aortic aneurism. The patient was referred for CT scan of the chest to address the underlying aortic aneurysm and was found to have underlying parenchymal disease. I personally viewed the CT scan with him. Appears that he has some areas of ground-glass opacities and mosaic pattern. This is pretty diffuse bilaterally. Does have some more reticular changes at the bases suggesting little more scarring. Clinically the patient denies any significant shortness of breath or cough. Denies any wheezing. He does not have any respiratory limitations at this time. 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 He worked mainly with [employer]. No exposure to any paper Ortega and no exposure to any laser printing. He did not use a mask. As far as other exposures he denies any smoking. He denies any exposure to any mold or animals. He does have a dog does not have any Bird. Denies any hobbies working with any inorganic dust or any other fumes or toxins. Did this could have been a result of a occupational exposure and pneumoconiosis. Although at this point it may be burnt out and the patient is fairly asymptomatic. Will continue to monitor him closely to make sure there has no progression of disease. Additional blood work will be reasonable to request this time. [facility] Medical History (Updated 08/09/23 @ 22:52 by Ras Christianson MD) ILD (interstitial lung disease) Pneumonitis Restless legs syndrome (RLS) BARTOLO (obstructive sleep apnea) Essential hypertension Hx of skin cancer, basal cell Surgical History Hx of colonoscopy Hx of hernia repair Hx of arthroscopic knee surgery Family History Father No problems noted. Mother No problems noted. Brother Parkinson disease Brother No problems noted. Sister Pacemaker Sister No problems noted. Son No problems noted. Social History Household Members: [facility] Alcohol intake: never Patient Tobacco Use Status: Never used Tobacco e-Cigarette/Vaping Use: Never Used Second Hand Smoke Exposure: No Current occupational status: retired Cognitive needs: No Hearing needs: No Vision needs: No Review of Systems Const Denies weakness ENT Denies dizziness Card Denies chest pain, Denies palpitations, Denies dyspnea and Denies dyspnea on exertion Resp Denies cough, Denies dyspnea, Denies dyspnea on exertion and Denies wheezing GI Denies hematochezia and Denies change in stool character Musc Denies abnormal gait Skin/Breast Denies rash Neuro Denies abnormal gait, Denies dizziness and Denies weakness Endo Denies palpitations Shade/Lymph Denies easy bruising and Denies lymphadenopathy Aller/Immun Denies wheezing Physical Exam Vital Signs: Last Vital Signs Pulse 57 08/06/23 14:45 BP 130/68 08/06/23 14:45 Pulse Ox 98 08/06/23 14:45 Oxygen Delivery Method Room Air 08/06/23 14:45 BMI result Body Mass Index 33.9 Const General: comfortable and no acute distress Orientation/consciousness: patient oriented x3 HEENT Other: Unremarkable Head: Yes normal to inspection Neck Neck: Yes normal visual inspection Chest Chest palpation & inspection: normal inspection of the chest Resp Effort & Inspection: normal respiratory effort Auscultation: rales bilateral at the base and diminished lung sounds Cardio Heart sounds: S1 normal heart sound present and S2 normal heart sound present GI Palpation (GI): Soft to palpation Back/Spine/Pelvis Other: unremarkable Skin General skin exam: no rashes or lesions noted Neuro General: patient oriented x3 Extrem General: Yes normal to inspection Psych Mental Status: mental status grossly normal Results Reviewed Results Reviewed: [address] [address] [address] Scan Report Signed Patient: Jomar Cordova MR#: [id number] : 1950 Acct:[id number] Age/Sex: 72 / M ADM Date: 06/18/23 Loc: HO.CT Attending Dr: Lorenzo Luis MD Ordering Physician: Lorenzo Luis MD Date of Service: 06/18/23 Procedure(s): CT chest wo con - High Res Accession Number(s): [id number] cc: Sandor Graham RELATIONSHIP ADVISOR-; Lorenzo Luis MD~ EXAMINATION: CT OF THE CHEST WITHOUT CONTRAST CLINICAL INFORMATION: Aneurysm of ascending aorta. COMPARISON: Chest x-ray 12/16/2018. TECHNIQUE: Noncontrast chest CT was performed. Limited expiratory images were also obtained. DOSE LOWERING TECHNIQUES: This CT examination was performed using dose optimization techniques as appropriate, variously including the following: - Automated exposure control - Adjustment of mA and/or kV according to patient size (this includes techniques or standardized protocols for targeted exams where dose is matched to indication/reason for exam; i.e. extremities or head) - Use of iterative construction technique DOSE-LENGTH PRODUCT: 256 mGycm FINDINGS: CORONARY ARTERIES: Significant three-vessel coronary calcium. ASCENDING AORTA: The ascending aorta measures 4.6 cm in diameter at the level of the pulmonary artery. AORTIC ARCH: The mid aortic arch measures 2.8 cm. Three-vessel arch anatomy. Mild atherosclerosis in the proximal left subclavian artery. DESCENDING AORTA: The proximal segment measures 2.5 cm. The distal segment measures 2.6 cm. INCLUDED UPPER ABDOMINAL AORTA: The upper abdominal aorta measures 2.7 cm. PULMONARY ARTERIES: Main pulmonary artery measures 3.1 cm with mPA to Ao ratio of 0.7. LUNG: Diffusely thick-walled airways consistent with chronic airways disease. Mosaic attenuation on consistent with air trapping. No suspicious pulmonary nodules. PLEURA: No pleural effusion or pneumothorax. MEDIASTINUM: No adenopathy or pericardial effusion. CHEST WALL/AXILLA: No axillary or internal mammary lymphadenopathy. OSSEOUS STRUCTURES: No acute or suspicious osseous abnormality. UPPER ABDOMEN: Simple hepatic cysts. Fatty attenuation of the pancreas. Simple cyst upper left kidney. No imaging follow-up recommended. Degenerative changes in the spine. CT/CT chest wo con - High Res IMPRESSION: Ascending aortic aneurysm measuring 4.6 cm. Main pulmonary artery measuring 3.1 cm. Correlate clinically for pulmonary arterial hypertension. Diffusely thick-walled airways and mosaic attenuation suggesting air trapping and chronic airways disease. The possibility of an interstitial lung disease with geographic groundglass is a possibility. The imaging pattern is nonspecific. Clinical correlation is necessary. Fleischner guidelines were followed. Dictated By: Markell Butcher MD Signed By: <Electronically signed by Markell Butcher MD in OV> 06/29/23 1558 DD/ 0839 TD/TT: Wood Carving Lathe Operator: NEVIN Assessment & Plan Assessment & Plan (1) Pneumonitis: Code(s): J98.4 - Other disorders of lung (2) BARTOLO (obstructive sleep apnea): Code(s): G47.33 - Obstructive sleep apnea (adult) (pediatric) (3) ILD (interstitial lung disease): Code(s): J84.9 - Interstitial pulmonary disease, unspecified Plan Start Asmanex, inhaled cortical steroid to help with the ongoing inflammation request blood work PFTs prior to the next visit will require additional imaging in the future to make sure no progression of the interstitial lung disease follow-up in 3 months Orders: Orders CAROLIN Reflex Titer and Pattern Today J98.4 - Other disorders of lung Hypersensitive Pneumonitis Prf Today J98.4 - Other disorders of lung, R91.8 - Other nonspecific abnormal finding of lung field Cyclic Citrullinated Peptide Today J98.4 - Other disorders of lung Complete Blood Count Auto Diff Today J98.4 - Other disorders of lung Erythrocyte Sedimentation Rate Today J98.4 - Other disorders of lung Immunoglobulin E Today J98.4 - Other disorders of lung PFT pulmonary function test 3 Months J84.9 - Interstitial pulmonary disease, unspecified Medications: New mometasone 200 mcg/actuation (Asmanex HFA) 2 puffs inhalation BID 13 grams 6RF 30 days Coding Level of Care Code New Pt Level 4 (37534) Diagnoses Pneumonitis J98.4 BARTOLO (obstructive sleep apnea) G47.33 ILD (interstitial lung disease) J84.9 Time Spent (min) 40
[2023-08-06 14:45] VITALS: BP 130/68; PULSE 57; O2SAT 98; BMI 33.9
== END 2023-08-06 15:11 | disposition home or self-care (01) ==
PROVIDERS: PCP Nurse Practitioner Family; Visit Provider Hospitalist
DX: J98.4 Other disorders of lung (principal); G47.33 Obstructive sleep apnea (adult) (pediatric); J84.9 Interstitial pulmonary disease, unspecified
CPT/HCPCS: 99204

== ENCOUNTER → 2023-08-06 14:40 | Outpatient (BNVA) | payer MEDICARE, SELFPAY | PROVIDERS: PCP Nurse Practitioner Family; Visit Provider Hospitalist | DX: J98.4 Other disorders of lung (principal); G47.33 Obstructive sleep apnea (adult) (pediatric) | CPT/HCPCS: 99202 ==

== ENCOUNTER 2023-08-09 07:20 | Outpatient (REF) | payer MEDICARE, SELFPAY ==
[2023-08-09 10:57] LABS: MANUAL DIFF FLAG NO
[2023-08-09 11:05] LABS: Basophils Percent Auto 0.2 % (0-2); Eosinophils Absolute Auto 0.2 X10*3/uL (0.0-0.4); Eosinophils Percent Auto 3.1 % (0-4); Hematocrit 44.9 % (42.0-52.0); Hemoglobin 15.1 g/dl (14.0-18.0); Imm Gran Abs Auto 0.03 X10*3/uL (0.00-0.03); Imm Gran Pct Auto 0.5 % (0.0-0.4); Lymphocytes Absolute Auto 1.4 X10*3/uL (1.2-4.9); Lymphocytes Percent Auto 22.2 % (20-40); Mean Corpuscular HGB Conc 33.6 g/dl (31.0-36.0); Mean Corpuscular Hemoglobin 31.4 pg (27.0-33.0); Mean Corpuscular Volume 93.3 fL (80.0-98.0); Mean Platelet Volume 9.6 fL (9.4-12.4); Monocytes Absolute Auto 0.7 X10*3/uL (0.1-1.2); Neutrophils Absolute Auto 3.8 x10*3/uL (2.0-8.3); Platelet Count 211 X10*3/uL (160-400); Red Blood Count 4.81 X10*6/uL (4.60-5.80); Red Cell Distribution Width 12.5 % (11.0-16.0); White Blood Count 6.1 X10*3/uL (4.8-10.8)
[2023-08-09 11:56] LABS: Erythrocyte Sedimentation Rate 5 MM/HR (0-15)
[2023-08-10 12:23] LABS: Immunoglobulin E 236 kU/L (<OR=114)
[2023-08-10 15:43] LABS: Cyclic Citrullinated Peptide <16 UNITS
[2023-08-13 19:08] LABS: Anti Nuclear Antibody Screen NEGATIVE (NEGATIVE)
[2023-08-14 14:32] LABS: Asperg fumigatus Precip Abs NEGATIVE (NEGATIVE); Micropoly faeni Abs NEGATIVE (NEGATIVE); Pigeon serum Abs NEGATIVE (NEGATIVE); Saccharo pora viridis Abs NEGATIVE (NEGATIVE); Thermo candidus Abs NEGATIVE (NEGATIVE); Thermoa vulgaris #1 NEGATIVE (NEGATIVE)
== END 2023-08-09 07:21 | disposition home or self-care (01) ==
LOC: HO.HMGCLDS 07:20
PROVIDERS: PCP Nurse Practitioner Family; Visit Provider Hospitalist
DX: J98.4 Other disorders of lung (principal); R91.8 Other nonspecific abnormal finding of lung field
CPT/HCPCS: 36415; 82785; 85025; 85652; 86038; 86200; 86331; 86606; 86609

== ENCOUNTER 2023-09-02 13:31 | Outpatient (REF) | payer MEDICARE, SELFPAY ==
[2023-09-02 11:32] VITALS: PULSE 58; RESP 16; O2SAT 97
--- NOTE | 2023-09-02 14:57 | PFT_ITS ---
Indication: BARTOLO Spirometry [FEV1 to FVC 85%; FEV1 1.92 L; FVC 2.27 L. There was a significant response to bronchodilators noted. Maximum voluntary ventilation 102% predicted Lung Volumes [Total lung capacity 64% predicted; expiratory reserve volume 30% predicted] Diffusion Capacity [DLCO 69% predicted; DLCO/VA 100% predicted] Comparisons [None] Interpretation [No obstructive ventilatory defects. Although there was a significant response to bronchodilators noted. Normal maximum voluntary ventilation. The patient did have a restrictive ventilatory defect consistent with [id number] restrictive lung disease. Need to consider neuromuscular conditions and or parenchymal lung disease. The patient also has an elevated BMI that is likely contributing. Diffusing capacity mildly decreased although it does correct to normal when corrected for the alveolar volume. Clinical correlation warranted.] MTDD
== END 2023-09-02 13:32 | disposition home or self-care (01) ==
LOC: HO.RESP 13:31
PROVIDERS: PCP Nurse Practitioner Family; Visit Provider Hospitalist
DX: J84.9 Interstitial pulmonary disease, unspecified (principal)
CPT/HCPCS: 94010; 94640; 94727; 94729

== ENCOUNTER → 2023-09-02 14:57 | Outpatient (BNV) | payer MEDICARE, SELFPAY | PROVIDERS: PCP Nurse Practitioner Family; Visit Provider Hospitalist | DX: J84.9 Interstitial pulmonary disease, unspecified (principal) | CPT/HCPCS: 94060; 94727; 94729 ==

== ENCOUNTER 2023-09-14 13:12 | Outpatient (AMB) | payer MEDICARE, SELFPAY ==
[2023-09-14 13:28] VITALS: PULSE 63; O2SAT 96; BMI 32.4
--- NOTE | 2023-09-14 13:28 | A.OFFVIS_ITS ---
Intake Vital Signs 09/14/23 13:28 Height 5 ft 5 in Weight 195 lb BMI 32.4 Pulse 63 Pulse Source Pulse Oximeter Pulse Oximetry (%) 96 Oxygen Delivery Method Room Air Intake Visit Reasons: Abnormal CT Allergies No Known Allergies [No Known Allergies*] Allergy (Verified 09/14/23 13:29) HPI HPI Comments History of Present Illness Details The patient is 72-year-old gentleman known history of obstructive sleep apnea on CPAP, cardiac arrhythmias and also an aortic aneurism. The patient was referred for CT scan of the chest to address the underlying aortic aneurysm and was found to have underlying parenchymal disease. I personally viewed the CT scan with him. Appears that he has some areas of ground-glass opacities and mosaic pattern. This is pretty diffuse bilaterally. Does have some more reticular changes at the bases suggesting little more scarring. Clinically the patient denies any significant shortness of breath or cough. Denies any wheezing. He does not have any respiratory limitations at this time. 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 He worked mainly with [employer]. No exposure to any paper Ortega and no exposure to any laser printing. He did not use a mask. As far as other exposures he denies any smoking. He denies any exposure to any mold or animals. He does have a dog does not have any Bird. Denies any hobbies working with any inorganic dust or any other fumes or toxins. Did this could have been a result of a occupational exposure and pneumoconiosis. Although at this point it may be burnt out and the patient is fairly asymptomatic. Will continue to monitor him closely to make sure there has no progression of disease. Additional blood work will be reasonable to request this time. 09/14/2023 the patient is here for a pulmonary follow-up visit. Overall he continues to do well. Denies any significant shortness of breath or wheezing or coughing. He does not feel like his respiratory symptoms limit his activity. The patient does continue on the Asmanex HFA twice a day. He is tolerating it well without any adverse effects. Again we did look at his previous CT scan that he had back in May demonstrating the evidence of mosaic pattern and ground-glass opacities suggesting pneumonitis. The patient did undergo pulmonary function studies which we personally reviewed demonstrating a mild restrictive ventilatory defect consistent with the findings previously. In addition to that the patient did undergo blood work without any evidence of any connective tissue diseases or allergic or hypersensitivity reactions to explain the findings. Since the patient is doing well will go ahead and continue with the inhaler at this time and plan to repeat the CT scan in [address] scan shows improvement. If there is any worsening of disease or any persistent findings then further diagnostic interventions may be warranted. [facility] Medical History (Updated 08/09/23 @ 22:52 by Ras Christianson MD) ILD (interstitial lung disease) Pneumonitis Restless legs syndrome (RLS) BARTOLO (obstructive sleep apnea) Essential hypertension Hx of skin cancer, basal cell Surgical History Hx of colonoscopy Hx of hernia repair Hx of arthroscopic knee surgery Family History Father No problems noted. Mother No problems noted. Brother Parkinson disease Brother No problems noted. Sister Pacemaker Sister No problems noted. Son No problems noted. Social History Household Members: [facility]ouse [facility] Alcohol intake: never Patient Tobacco Use Status: Never used Tobacco e-Cigarette/Vaping Use: Never Used Second Hand Smoke Exposure: No Current occupational status: retired Cognitive needs: No Hearing needs: No Vision needs: No Review of Systems Const Denies weakness ENT Denies dizziness Card Denies chest pain, Denies palpitations, Denies dyspnea and Denies dyspnea on exertion Resp Denies cough, Denies dyspnea, Denies dyspnea on exertion and Denies wheezing GI Denies hematochezia and Denies change in stool character Musc Denies abnormal gait Skin/Breast Denies rash Neuro Denies abnormal gait, Denies dizziness and Denies weakness Endo Denies palpitations Shade/Lymph Denies easy bruising and Denies lymphadenopathy Aller/Immun Denies wheezing Physical Exam Vital Signs: Last Vital Signs Pulse 63 09/14/23 13:28 Pulse Ox 96 09/14/23 13:28 Oxygen Delivery Method Room Air 09/14/23 13:28 BMI result Body Mass Index 32.4 Const General: comfortable and no acute distress Orientation/consciousness: patient oriented x3 HEENT Other: Unremarkable Head: Yes normal to inspection Neck Neck: Yes normal visual inspection Chest Chest palpation & inspection: normal inspection of the chest Resp Effort & Inspection: normal respiratory effort Auscultation: no rales and diminished lung sounds Cardio Heart sounds: S1 normal heart sound present and S2 normal heart sound present GI Palpation (GI): Soft to palpation Back/Spine/Pelvis Other: unremarkable Skin General skin exam: no rashes or lesions noted Neuro General: patient oriented x3 Extrem General: Yes normal to inspection Psych Mental Status: mental status grossly normal Assessment & Plan Assessment & Plan (1) Pneumonitis: Code(s): J98.4 - Other disorders of lung (2) BARTOLO (obstructive sleep apnea): Code(s): G47.33 - Obstructive sleep apnea (adult) (pediatric) (3) ILD (interstitial lung disease): Code(s): J84.9 - Interstitial pulmonary disease, unspecified Plan continue Asmanex, inhaled corticosteroid to help with the ongoing inflammation CT chest in 3 months continue CPAP, should bring it in to the next visit to download and adjust follow-up in 3 months Orders: Orders CT chest wo IV con 3 Months J84.9 - Interstitial pulmonary disease, unspecified, J98.4 - Other disorders of lung Coding Level of Care Code Est Pt Level 4 (11231) Diagnoses Pneumonitis J98.4 BARTOLO (obstructive sleep apnea) G47.33 ILD (interstitial lung disease) J84.9 Time Spent (min) 18
== END 2023-09-14 13:51 | disposition home or self-care (01) ==
PROVIDERS: PCP Nurse Practitioner Family; Visit Provider Hospitalist
DX: J98.4 Other disorders of lung (principal); G47.33 Obstructive sleep apnea (adult) (pediatric); J84.9 Interstitial pulmonary disease, unspecified
CPT/HCPCS: 99214

== ENCOUNTER → 2023-09-14 13:12 | Outpatient (BNVA) | payer MEDICARE, SELFPAY | PROVIDERS: PCP Nurse Practitioner Family; Visit Provider Hospitalist | DX: J98.4 Other disorders of lung (principal); G47.33 Obstructive sleep apnea (adult) (pediatric); J84.9 Interstitial pulmonary disease, unspecified; Z79.899 Other long term (current) drug therapy | CPT/HCPCS: 99212 ==

== ENCOUNTER 2023-12-01 06:19 | Day surgery (SDC) | payer MEDICARE, SELFPAY ==
[2023-11-29 11:37] VITALS: BMI 32.4
--- NOTE | 2023-11-30 10:11 | P.CONAN_ITS ---
Documented by User: Reina Foster NP 11/30/23 10:16 HPI - Anesthesia Eval Consult details Narrative: 73yo M for Colonoscopy Follows [facility] pulmo for ILD. Stable at 08/2023 office visit. Follows [facility] cardiology. Last office visit 03/2023. OK for 6 month f/u. [facility] Active Problems Active Problems: All Active Problems Cough (Acute) Hearing loss (Acute) Ascending aortic aneurysm (Acute) Apical variant hypertrophic cardiomyopathy (Acute) Hyperlipidemia (Acute) Physical exam (Acute) Screening PSA (prostate specific antigen) (Acute) NSVT (nonsustained ventricular tachycardia) (Acute) Atrial tachycardia (Acute) Obesity (Acute) Irregular heart beats (Acute) ILD (interstitial lung disease) (Acute) Pneumonitis (Acute) Restless legs syndrome (RLS) (Acute) BARTOLO (obstructive sleep apnea) (Acute) Essential hypertension (Acute) Past Medical History Medical History Hyperlipidemia ILD (interstitial lung disease) Pneumonitis Restless legs syndrome (RLS) BARTOLO (obstructive sleep apnea) Essential hypertension Hx of skin cancer, basal cell Family History Family History Father No problems noted. Mother No problems noted. Brother Parkinson disease Brother No problems noted. Sister Pacemaker Sister No problems noted. Son No problems noted. Surgical History Surgical History Hx of colonoscopy Hx of hernia repair Hx of arthroscopic knee surgery Social History Social History Household Members: Spouse Housing: Condominium Alcohol intake: never Patient Tobacco Use Status: Never used Tobacco e-Cigarette/Vaping Use: Never Used Second Hand Smoke Exposure: No Use of substances other than those prescribed or required for medical reasons: No Are you DNR?: No Advance Directives: No Advance Directives Information Provided: Yes Current occupational status: retired Cognitive needs: No Hearing needs: No Vision needs: No Meds Allergies Allergy/AdvReac Type Severity Reaction Status Date / Time No Known Allergies Allergy Verified 09/14/23 13:29 [No Known Allergies*] Exam Height,Weight and Vital Signs: Height 5 ft 6 in Weight 91.172 kg Narrative Narrative: EKG 03/2023 sinus rhythm at 63/Min; premature atrial complex; T inversions across the anterior as well as anterolateral/lateral leads. Similar to prior. ECHO 04/2023 Conclusions: - The left ventricular systolic function is normal. The calculated ejection fraction is 70% by biplane method. - There is moderate apical asymmetric hypertrophy. - Ascending aortic size measured as 4.8 cm, but not clear if it is a true measurement. Assessment and Plan Assessment Anesthesia Assessment: Chart Reviewed Documented by User: Cleo Ocampo MD 12/01/23 07:59 PMFSH Past Medical History Medical History Hyperlipidemia ILD (interstitial lung disease) Pneumonitis Restless legs syndrome (RLS) BARTOLO (obstructive sleep apnea) Essential hypertension Hx of skin cancer, basal cell Family History Family History Father No problems noted. Mother No problems noted. Brother Parkinson disease Brother No problems noted. Sister Pacemaker Sister No problems noted. Son No problems noted. Family history of problems with anesthesia: No Surgical History Surgical History Hx of colonoscopy Hx of hernia repair Hx of arthroscopic knee surgery History of Problems with Anesthesia: No Social History Social History Household Members: Spouse Housing: Condominium Alcohol intake: never Patient Tobacco Use Status: Never used Tobacco e-Cigarette/Vaping Use: Never Used Second Hand Smoke Exposure: No Use of substances other than those prescribed or required for medical reasons: No Are you DNR?: No Advance Directives: No Advance Directives Information Provided: Yes Current occupational status: retired Cognitive needs: No Hearing needs: No Vision needs: No Meds Allergies Allergy/AdvReac Type Severity Reaction Status Date / Time No Known Allergies Allergy Verified 09/14/23 13:29 [No Known Allergies*] Exam Airway Mallampati Class: II TM Dist: >3cm Neck ROM: Full Heart: rrr Lungs: cta Assessment and Plan Assessment Anesthesia Assessment: Anesthesia Plan Discussed Final Anesthetic Review Family History of Problems with Anesthesia: No History of Problems with Anesthesia: No NPO: Yes ASA Class: III Final Preanesthetic Review: No Changes in Pt Med Stat, Meds/Allgs Chart Reviewed, Consent Obtained/Reviewed and Anes Risks/Benef Reviewed Patient Risk: Intermediate Procedure Risk: Low Anesthetic Plan Anesthetic Plan: MAC: Disposition: Standard PACU
[2023-12-01 07:29] VITALS: BMI 31.0
[2023-12-01 07:32] VITALS: BP 132/69; PULSE 77; RESP 16; TEMP 36.4; O2SAT 97
[2023-12-01] MEDS: Lactated Ringers 1,000 ML 50 ML IVCONT (08:03)
[2023-12-01 09:08] VITALS: BP 92/57; PULSE 83; RESP 16; TEMP 36.4; O2SAT 95
--- NOTE | 2023-12-01 09:11 | PM.OP ---
Brief Operative Note Date of Service: 12/01/23 Pre-op diagnosis: Screening Post-op diagnosis: other (Diverticulosis) Procedure: Colonoscopy to the cecum and TI Surgeon: Turner Barrera MD Anesthesia: MAC Was an Assistant Store Manager used for this Procedure?: No Estimated blood loss (mL): 0 Pathology: none sent Condition: stable Disposition: PACU
[2023-12-01 09:23] VITALS: BP 99/63; PULSE 71; RESP 16; O2SAT 97
[2023-12-01 09:38] VITALS: BP 121/78; PULSE 77; RESP 16; TEMP 36.5; O2SAT 97
--- NOTE | 2023-12-01 10:45 | OP_ITS ---
DATE OF SERVICE: 12/01/2023 SURGEON: Turner Barrera MD INDICATIONS: The patient presents for evaluation of colorectal cancer screening and personal history of tubular adenoma of the colon. Full consent has been obtained from him for this, including risks of bleeding and perforation. PREOPERATIVE DIAGNOSIS: POSTOPERATIVE DIAGNOSIS: PROCEDURE PERFORMED: Colonoscopy to cecum and terminal ileum. ESTIMATED BLOOD LOSS: COMPLICATIONS: ANESTHESIA: Monitored anesthesia care. ASSISTANTS: SPECIMENS: PREOPERATIVE DIAGNOSES: Colorectal cancer screening and personal history of tubular adenoma of the colon. POSTOPERATIVE DIAGNOSES: Colorectal cancer screening, personal history of tubular adenoma of the colon, diverticulosis, and internal hemorrhoids. DESCRIPTION OF PROCEDURE: The patient was placed in the left lateral decubitus position. The digital rectal exam revealed no abnormalities. The Olympus video pediatric colonoscope was then entered into the rectum and advanced easily to the cecum. Once in the cecum, I did identify normal-appearing cecal pouch with appendiceal orifice and a normal-appearing ileocecal valve. The terminal ileum was cannulated and appeared normal. The scope was withdrawn back in the colon. The entire cecum and ileocecal valve appeared normal. The scope was slowly withdrawn assessing all mucosal surfaces carefully. Preparation was excellent. I did not visualize any sign of polyps, colitis, nor angiodysplasias. There was a mild amount of sigmoid diverticulosis. In the rectum, scope was retroflexed, visualizing internal hemorrhoids, but no other pathology. The rectal mucosa appeared normal. Scope was straightened and withdrawn from the patient. He tolerated the procedure well and was returned to the recovery area in stable condition. IMPRESSION: 1. Diverticulosis. 2. Internal hemorrhoids. PLAN: Given his previous history of tubular adenoma, I would recommend a followup colonoscopy in 5 years for further screening. He will, otherwise, see me on a p.r.n. basis. This has been discussed with his . MD ELLEN Ordoñez/WALKER / [phone]
--- NOTE | 2023-12-02 06:40 | PC.NURSE ---
24hr update documented on paper chart
== END 2023-12-01 10:08 | disposition home or self-care (01) ==
PROVIDERS: PCP Nurse Practitioner Family; Visit Provider Internal Medicine
PROC: 0DJD8ZZ Inspection of Lower Intestinal Tract, Via Natural or Artificial Opening Endoscopic (ICD-10-PCS; CPT 45378; principal; 2023-12-01 08:30)
DX: Z12.11 Encounter for screening for malignant neoplasm of colon (principal); K57.30 Diverticulosis of large intestine without perforation or abscess without bleeding; K64.8 Other hemorrhoids; Z86.010 Personal history of colon polyps; I10 Essential (primary) hypertension; G47.30 Sleep apnea, unspecified; Z79.899 Other long term (current) drug therapy
CPT/HCPCS: G0105; J2704

== ENCOUNTER 2023-12-02 10:16 | Outpatient (AMB) | payer MEDICARE, SELFPAY ==
--- NOTE | 2023-12-02 10:27 | A.OFFPC_ITS ---
Vital Signs 12/02/23 10:30 Height 5 ft 5 in Weight 201 lb 6 oz BMI 33.5 BP 116/78 Blood Pressure Location Lt brachial Position Sitting Pulse 62 Pulse Source Pulse Oximeter Pulse Oximetry (%) 94 Oxygen Delivery Method Room Air Intake Visit Reasons: PE Intake Note: Patient here for physical exam. Colon: 2023 [place] [facility] [place]erg[place] No Known Allergies [No Known Allergies*] Allergy (Verified 12/02/23 12:05) Medication List - Last Reconciled 12/02/23 by JANETT Pastor atorvastatin 40 mg PO DAILY budesonide 180 mcg/actuation (Pulmicort Flexhaler) 1 inh inhalation BID 30 days cholecalciferol (vitamin D3) 50 mcg PO DAILY diltiazem HCl CD 120 mg PO BID 90 days gabapentin 300 mg PO BEDTIME 90 days iron,carbonyl-vitamin C 65 mg iron- 125 mg (Vitron-C) 1 tab PO DAILY lisinopril 10 mg PO DAILY 90 days mometasone 200 mcg/actuation (Asmanex HFA) 2 puffs inhalation BID 30 days Tobacco use date assessed: 12/02/23 Fall risk assessment: No Falls in past year Last assessed Fall Risk: 12/02/23 Dental Screening Dental Screen Date: 12/02/23 Did you have a dental visit in the last 12 months?: Yes Did you have a dental problem in the last 6 months where you did not have access to dental care?: No Was dental information given to patient?: Patient has dentist HPI PE HPI Details Pt is here for a PE. Will order labs. Colon screen is up to date. PSA is up to date. Denies dribbling with urination, weak stream, and frequent nocturia. Pt follows up with cardiology, sleep medicine, and pulmonology. [facility] Medical History Hyperlipidemia ILD (interstitial lung disease) Pneumonitis Restless legs syndrome (RLS) BARTOLO (obstructive sleep apnea) Essential hypertension Hx of skin cancer, basal cell Surgical History Hx of colonoscopy Hx of hernia repair Hx of arthroscopic knee surgery Family History Father No problems noted. Mother No problems noted. Brother Parkinson disease Brother No problems noted. Sister Pacemaker Sister No problems noted. Son No problems noted. Social History Household Members: Spouse Housing: Condominium Alcohol intake: never Patient Tobacco Use Status: Never used Tobacco e-Cigarette/Vaping Use: Never Used Second Hand Smoke Exposure: No Current occupational status: retired Cognitive needs: No Hearing needs: No Vision needs: No Questionnaire PHQ-9 Over the last 2 weeks, how often have you been bothered by any of the following problems? 1. Little interest or pleasure in doing things: not at all 2. Feeling down, depressed, or hopeless: not at all 3. Trouble falling or staying asleep, or sleeping too much: not at all 4. Feeling tired or having little energy: not at all 5. Poor appetite or overeating: not at all 6. Feeling bad about yourself - or that you are a failure or have let yourself or your family down: not at all 7. Trouble concentrating on things, such as reading the newspaper or watching television: not at all 8. Moving or speaking so slowly that other people could have noticed. Or the opposite - being so fidgety or restless that you have been moving around a lot more than usual: not at all 9. Thoughts that you would be better off or of hurting yourself in some way: not at all Total score: 0 Depression Screening Interpretation: Negative Depression Screening Done: Yes 18264 - PHQ-9 Billing: Yes Source: Developed by Drs. Turner Jennings, Aleena Middleton, Ezio Trujillo and colleagues, with an educational valerie from [employer]. Thrive Questionnaire Date Thrive assessed: 12/02/23 I am a: Patient What is your living situation today?: I have a steady place to live Within the past 12 months, did the food you bought not last and you didn't have the money to get more?: Never true Within the past 12 months, did you worry whether your food would run out before you got money to buy more?: Never true Do you have trouble paying for medicines?: No Do you have trouble getting transportation to medical appointments?: No Do you have trouble paying your heating and electricity bill?: No Do you have trouble taking care of your child, family member or friend?: No Do you have trouble with day-to-day activities such as bathing, preparing meals, shopping, managing finances, etc.?: No Are you currently unemployed and looking for a job?: No Are you interested in more education?: No Currently or been in a relationship where the following occur: no concerns reported THRIVE Score: 0 AUDIT C Alcohol Use Questionnaire (AUDIT-C) 1. How often do you have a drink containing alcohol?: Never 3. How often do you have six or more drinks on one occasion?: Never Total Score: 0 Score Reviewed/Action Taken: No SEVERO-7 AMB Questionnaire SEVERO-7 Date SEVERO - 7 assessed: 12/02/23 Feeling nervous, anxious, or on edge: 0 = Not at all Not being able to stop or control worryin = Not at all Worrying too much about different things: 0 = Not at all Trouble relaxin = Not at all Being so restless that it is hard to sit still: 0 = Not at all Becoming easily annoyed or irritable: 0 = Not at all Feeling afraid as if something awful might happen: 0 = Not at all Total SEVERO-7 score (0-4 normal; 5-9 mild; 10-14 moderate; 15-21 severe): 0 Source: Developed by Drs. Turner Jennings, Aleena Middleton, Ezio Trujillo and colleagues, with an educational valerie from [employer]. SEVERO-7 Assessment Billing SEVERO-7 Assessment Tool: SEVERO-7 Assessment 58217 Review of Systems Const Denies chills and Denies fever(s) Eyes Denies blurry vision ENT Denies vertigo, Denies dizziness and Denies sore throat Card Denies chest pain at rest, Denies chest pain with activity, Denies diaphoresis, Denies dyspnea and Denies dyspnea on exertion Resp Denies cough, Denies dyspnea, Denies dyspnea on exertion and Denies wheezing GI Denies abdominal pain, Denies melena, Denies hematochezia, Denies constipation, Denies diarrhea and Denies loose stools Denies hematuria Musc Denies numbness and Denies tingling Skin/Breast Denies lesions Neuro Denies vertigo, Denies dizziness, Denies numbness and Denies tingling Psych Denies anxiety, Denies depression, Denies homicidal ideation, Denies suicidal ideation and Denies other (substance abuse) Aller/Immun Denies wheezing Physical exam (Primary Care) Vital Signs: Last Vital Signs Pulse 62 12/02/23 10:30 BP 116/78 12/02/23 10:30 Pulse Ox 94 12/02/23 10:30 Oxygen Delivery Method Room Air 12/02/23 10:30 BMI result Body Mass Index 33.5 Tobacco/Smoking Status: Tobacco use Status Tobacco use date assessed 12/02/23 12/02/23 10:31 Patient Tobacco Use Status Never used Tobacco 12/02/23 10:29 e-Cigarette/Vaping Use Never Used 12/02/23 10:29 PHQ-9: PHQ-9 Score PHQ-9: Total score 0 12/02/23 11:03 Depression Screening Interpretation: Negative Thrive Assessment: Date of Thrive Assessment Date Thrive assessed 12/02/23 12/02/23 10:35 Currently or been in a relationship where the following occur: no concerns reported Const General: cooperative Nutritional Appearance: obese Orientation/consciousness: patient oriented x3 HENMT Head: Yes normal to inspection, Yes normocephalic and Yes atraumatic Ears: TM's normal bilaterally Eyes General: appearance normal, both eyes and all related structures Alignment and Position: alignment normal and position normal Neck Neck: Yes normal visual inspection and Yes no lymphadenopathy Thyroid: Thyroid normal Resp Other: lungs fairly clear Effort & Inspection: normal respiratory effort Cardio Rate: regular rate Rhythm: regular rhythm Heart sounds: S1 normal heart sound present, S2 normal heart sound present and no murmurs GI Palpation (GI): Soft to palpation and nontender Auscultation: normal bowel sounds Male General Exam: Yes normal external exam Penis: normal penis Scrotum: scrotum normal, testes descended bilaterally and no inguinal hernias Testes: no testicular mass Skin Rashes: no rashes Neuro General: patient oriented x3, moves all extremities, no focal motor deficits and deep tendon reflexes 2+ bilaterally Romberg Test: Negative Psych Appearance: grossly normal Mental Status: mental status grossly normal Speech and movement: Normal speech and movement present Affect: normal affect Attitude: cooperative Thought process: Normal thought process present Thought content: Normal thought content present Insight: Good insight present (Psych) Judgement: Good judgement present (Psych) Assessment and Plan Assessment & Plan (1) Physical exam: Code(s): Z00.00 - Encounter for general adult medical examination without abnormal findings Plan: Labs ordered Plan The patient agreed to the use of a medical record technician for this encounter. Scribed for JANETT Goldstein by Radha Salcedo medical record technician, on 12/02/2023 at 10:55 EST. Orders: Orders Complete Blood Count Auto Diff Today Z00.00 - Encounter for general adult medical examination without abnormal findings TSH reflex Free T4 Today Z00.00 - Encounter for general adult medical examination without abnormal findings UA CC w/rflx Micro + Cult Today Z00.00 - Encounter for general adult medical examination without abnormal findings Comprehensive [place]. Panel Fast Today Z00.00 - Encounter for general adult medical examination without abnormal findings Lipid Panel Today Z00.00 - Encounter for general adult medical examination without abnormal findings Coding Level of Care Code Est Pt Prev Care >65y(34770) Diagnoses Physical exam Z00.00 Additional Codes SEVERO-7 Assessment Billing - SEVERO-7 Assessment Tool: SEVERO-7 Assessment [id number] ([id number])
[2023-12-02 10:30] VITALS: BP 116/78; PULSE 62; O2SAT 94; BMI 33.5
== END 2023-12-02 11:09 | disposition home or self-care (01) ==
PROVIDERS: PCP Nurse Practitioner Family; Visit Provider Nurse Practitioner Family
DX: Z00.00 Encounter for general adult medical examination without abnormal findings (principal)
CPT/HCPCS: 99397

== ENCOUNTER 2023-12-15 08:48 | Outpatient (REF) | payer MEDICARE, SELFPAY ==
--- NOTE | ~2023-12-15 | CT_ITS ---
EXAMINATION: CT CHEST WITHOUT CONTRAST CLINICAL INFORMATION: Interstitial pulmonary disease, unspecified. COMPARISON: CT chest 06/18/2023. TECHNIQUE: Multidetector volumetric CT imaging of the chest was done. Axial MIP volume rendering provided. Sagittal and coronal reformatted images were obtained. This CT examination was performed using dose optimization techniques as appropriate, variously including the following: *Automated exposure control *Adjustment of mA and/or kV according to patient size (this includes techniques or standardized protocols for targeted exams where dose is matched to indication/reason for exam; i.e. extremities or head) *Use of iterative reconstruction technique DLP: 225 mGy-cm FINDINGS: LUNGS: Compared with the prior study, there has been a marked improvement in appearances. Previously, diffuse mosaic attenuation was present. I suspect that the scan could have been performed in expiration. On today's exam, no significant ground-glass changes are seen. There is no subpleural reticulation or honeycombing seen to suggest interstitial lung disease. There are some minimal emphysematous changes and [id number] bronchial thickening present. A few small micronodules are present, none larger than 3 mm (see john images). No new, increasing sized or suspicious nodule is seen. MEDIASTINUM: No mediastinal or hilar adenopathy. Heart size normal. Pulmonary artery measures 3.2 cm in greatest dimension. The ascending aorta measures 4.5 cm. CORONARY ARTERY CALCIFICATION: Extensive. PLEURA: There is no pleural effusion. No pleural mass or thickening. AXILLA: No lymphadenopathy. UPPER ABDOMEN: Two benign hepatic cysts are present. There is marked fatty replacement of the pancreas. A benign left upper pole 2.3 cm Bosniak class I renal cyst is noted which requires no additional imaging or follow up. No solid renal masses are seen. OSSEOUS STRUCTURES: Degenerative changes are seen in the spine. No bony destructive lesions. CT/CT chest wo IV con IMPRESSION: 1. No evidence of interstitial lung disease. 2. Mild emphysematous changes and bronchial thickening. 3. Incidental note made of 4.5 cm ascending aortic aneurysm, dilated pulmonary artery and other findings described above. Fleischner guidelines were followed.
== END 2023-12-15 08:49 | disposition home or self-care (01) ==
LOC: HO.CT 08:48
PROVIDERS: PCP Nurse Practitioner Family; Visit Provider Hospitalist
DX: J84.9 Interstitial pulmonary disease, unspecified (principal); J98.4 Other disorders of lung
CPT/HCPCS: 71250

== ENCOUNTER 2023-12-20 09:45 | Outpatient (AMB) | payer MEDICARE, SELFPAY ==
[2023-12-20 09:56] VITALS: PULSE 57; O2SAT 95; BMI 32.4
--- NOTE | 2023-12-20 09:56 | MHC.OFFVIS ---
Vital Signs 12/20/23 09:56 Height 5 ft 5 in Weight 195 lb BMI 32.4 Pulse 57 Pulse Source Pulse Oximeter Pulse Oximetry (%) 95 Oxygen Delivery Method Room Air Intake Visit Reasons: ILD Truer Pinion And Wheel Required: No Allergies No Known Allergies [No Known Allergies*] Allergy (Verified 12/20/23 09:57) HPI Comments Details: The patient is 73-year-old gentleman known history of obstructive sleep apnea on CPAP, cardiac arrhythmias and also an aortic aneurism. The patient was referred for CT scan of the chest to address the underlying aortic aneurysm and was found to have underlying parenchymal disease. I personally viewed the CT scan with him. Appears that he has some areas of ground-glass opacities and mosaic pattern. This is pretty diffuse bilaterally. Does have some more reticular changes at the bases suggesting little more scarring. Clinically the patient denies any significant shortness of breath or cough. Denies any wheezing. He does not have any respiratory limitations at this time. 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 He worked mainly with [employer]. No exposure to any paper Ortega and no exposure to any laser printing. He did not use a mask. As far as other exposures he denies any smoking. He denies any exposure to any mold or animals. He does have a dog does not have any Bird. Denies any hobbies working with any inorganic dust or any other fumes or toxins. Did this could have been a result of a occupational exposure and pneumoconiosis. Although at this point it may be burnt out and the patient is fairly asymptomatic. Will continue to monitor him closely to make sure there has no progression of disease. Additional blood work will be reasonable to request this time. 09/14/2023 the patient is here for a pulmonary follow-up visit. Overall he continues to do well. Denies any significant shortness of breath or wheezing or coughing. He does not feel like his respiratory symptoms limit his activity. The patient does continue on the Asmanex HFA twice a day. He is tolerating it well without any adverse effects. Again we did look at his previous CT scan that he had back in May demonstrating the evidence of mosaic pattern and ground-glass opacities suggesting pneumonitis. The patient did undergo pulmonary function studies which we personally reviewed demonstrating a mild restrictive ventilatory defect consistent with the findings previously. In addition to that the patient did undergo blood work without any evidence of any connective tissue diseases or allergic or hypersensitivity reactions to explain the findings. Since the patient is doing well will go ahead and continue with the inhaler at this time and plan to repeat the CT scan in [address] scan shows improvement. If there is any worsening of disease or any persistent findings then further diagnostic interventions may be warranted. 12/20/2023 the patient is here for pulmonary follow-up visit. The patient overall has been doing well. His breathing is better. He has tolerating the Asmanex inhaler. Denies any significant shortness breath. He does have intermittent cough. Mild in severity. We did review his recent CT scan of the chest which has not been formally read yet. We are able to compare to his CT scan that he had back in the winter of 2022. It appears that the ground-glass opacities have significantly improved. I will see any evidence of any worsening disease. Will await the final read at this time hold off on any additional imaging studies. Also can try decrease the Asmanex to once a day. We did review the blood work no evidence of any connective tissue disease. 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 In regards to the CPAP the CPAP therapy has been affecting beneficial. He did bring the machine in in his AHI is slightly elevated at 5.5. It appears that he needs additional pressure settings. Therefore switched him from a CPAP of 11 to an APAP of 9-14. He also needs a new mask. I did send a request [facility] [employer] [facility] to call him for an appointment in order for him to be fitted for a different mask. I do believe that he likes the p30i, which she can try and see if that works for him. [facility] Medical History Hyperlipidemia ILD (interstitial lung disease) Pneumonitis Restless legs syndrome (RLS) BARTOLO (obstructive sleep apnea) Essential hypertension Hx of skin cancer, basal cell Surgical History Hx of colonoscopy Hx of hernia repair Hx of arthroscopic knee surgery Family History Father No problems noted. Mother No problems noted. Brother Parkinson disease Brother No problems noted. Sister Pacemaker Sister No problems noted. Son No problems noted. Social History Household Members: Spouse Housing: Condominium Alcohol intake: never Patient Tobacco Use Status: Never used Tobacco e-Cigarette/Vaping Use: Never Used Second Hand Smoke Exposure: No Current occupational status: retired Cognitive needs: No Hearing needs: No Vision needs: No Review of Systems Const Denies weakness ENT Denies dizziness Card Denies chest pain, Denies palpitations, Denies dyspnea and Denies dyspnea on exertion Resp Denies cough, Denies dyspnea, Denies dyspnea on exertion and Denies wheezing GI Denies hematochezia and Denies change in stool character Musc Denies abnormal gait Skin/Breast Denies rash Neuro Denies abnormal gait, Denies dizziness and Denies weakness Endo Denies palpitations Shade/Lymph Denies easy bruising and Denies lymphadenopathy Aller/Immun Denies wheezing Physical Exam Vital Signs: Last Vital Signs Pulse 57 12/20/23 09:56 Pulse Ox 95 12/20/23 09:56 Oxygen Delivery Method Room Air 12/20/23 09:56 BMI result Body Mass Index 32.4 Const General: comfortable and no acute distress Orientation/consciousness: patient oriented x3 HEENT Other: Unremarkable Head: Yes normal to inspection Neck Neck: Yes normal visual inspection Chest Chest palpation & inspection: normal inspection of the chest Resp Effort & Inspection: normal respiratory effort Auscultation: clear to auscultation bilaterally and no rales Cardio Heart sounds: S1 normal heart sound present and S2 normal heart sound present GI Palpation (GI): Soft to palpation Back/Spine/Pelvis Other: unremarkable Skin General skin exam: no rashes or lesions noted Neuro General: patient oriented x3 Extrem General: Yes normal to inspection Psych Mental Status: mental status grossly normal Assessment & Plan Assessment & Plan (1) Pneumonitis: Comment: resolved Code(s): J98.4 - Other disorders of lung Category: Medical (2) BARTOLO (obstructive sleep apnea): Code(s): G47.33 - Obstructive sleep apnea (adult) (pediatric) Category: Medical (3) ILD (interstitial lung disease): Code(s): J84.9 - Interstitial pulmonary disease, unspecified Category: Medical Plan continue Asmanex, inhaled corticosteroid to help with the ongoing inflammation continue CPAP, Needs a new mask, requesting mask clinic and try P30i follow-up in 6-8 months Coding Level of Care Code Est Pt Level 4 (32889) Diagnoses Pneumonitis J98.4 BARTOLO (obstructive sleep apnea) G47.33 ILD (interstitial lung disease) J84.9 Time Spent (min) 17
== END 2023-12-20 10:21 | disposition home or self-care (01) ==
PROVIDERS: PCP Nurse Practitioner Family; Visit Provider Hospitalist
DX: J98.4 Other disorders of lung (principal); G47.33 Obstructive sleep apnea (adult) (pediatric); J84.9 Interstitial pulmonary disease, unspecified
CPT/HCPCS: 99214

== ENCOUNTER → 2023-12-20 09:45 | Outpatient (BNVA) | payer MEDICARE, SELFPAY | PROVIDERS: PCP Nurse Practitioner Family; Visit Provider Hospitalist | DX: J98.4 Other disorders of lung (principal); J84.9 Interstitial pulmonary disease, unspecified; G47.33 Obstructive sleep apnea (adult) (pediatric); Z99.89 Dependence on other enabling machines and devices | CPT/HCPCS: 99212 ==

== ENCOUNTER 2023-12-27 08:43 | Outpatient (AMB) | payer MEDICARE, SELFPAY ==
--- NOTE | 2023-12-27 09:07 | AM.OFFWIN_ITS ---
Intake Vital Signs 12/27/23 09:08 Height 5 ft 5 in Weight 203 lb BMI 33.8 BP 102/66 Blood Pressure Location Rt brachial Position Sitting Pulse 59 Pulse Source Pulse Oximeter Temp 97.8 F Temp Source Oral Pulse Oximetry (%) 96 Oxygen Delivery Method Room Air Intake Visit Reasons: EP rash Intake Note: Pt is here today for a rash Patient Tobacco Use Status: Never used Tobacco Allergies No Known Allergies [No Known Allergies*] Allergy (Verified 12/27/23 09:10) Do you need a note to return to daycare/school/sports/work: No HPI HPI Comments History of Present Illness Details Patient is a 73-year-old male complaining of 10 days of a rash on his left arm that has now spread to his right arm and his left leg. He states it is itchy and feels better with benadryl cream. He denies fevers. [facility] Medical History Hyperlipidemia ILD (interstitial lung disease) Pneumonitis Restless legs syndrome (RLS) BARTOLO (obstructive sleep apnea) Essential hypertension Hx of skin cancer, basal cell Surgical History Hx of colonoscopy Hx of hernia repair Hx of arthroscopic knee surgery Family History Father No problems noted. Mother No problems noted. Brother Parkinson disease Brother No problems noted. Sister Pacemaker Sister No problems noted. Son No problems noted. Social History Household Members: Spouse Housing: Condominium Alcohol intake: never Patient Tobacco Use Status: Never used Tobacco e-Cigarette/Vaping Use: Never Used Second Hand Smoke Exposure: No Current occupational status: retired Cognitive needs: No Hearing needs: No Vision needs: No Review of Systems Const All systems reviewed & are unremarkable except as noted in HPI and below Physical Exam Vital Signs: Last Vital Signs Temp 97.8 F 12/27/23 09:08 Pulse 59 12/27/23 09:08 BP 102/66 12/27/23 09:08 Pulse Ox 96 12/27/23 09:08 Oxygen Delivery Method Room Air 12/27/23 09:08 BMI result Body Mass Index 33.8 Const General: cooperative, healthy appearing, comfortable and no acute distress Orientation/consciousness: patient oriented x3 Limitations: no limitations HEENT Head: Yes normal to inspection Eyes General: appearance normal, both eyes and all related structures Resp Effort & Inspection: normal respiratory effort and able to speak in complete sentences Skin Other: A streaky, linear maculopapular rash with crusted lesions on left forearm (four 1cm lesions) and upper, medial left arm (3cm x 5cm patch) as well as right upper forearm (three 1cm lesions) Neuro General: patient oriented x3 Assessment & Plan Assessment & Plan (1) Allergic dermatitis: Code(s): L23.9 - Allergic contact dermatitis, unspecified cause Plan: Sent and hydroxyzine and topical steroid to pharmacy. Gave red flag instructions on when to seek emergency medical attention. Also discussed proper use of the steroid cream Plan See above Medications: New hydroxyzine HCl 10 mg PO QID PRN 10 tabs 0RF itching clobetasol 0.05% use sparingly, avoid use on face and genitals and prolonged use 1 appl topical BID 1 week 45 grams 0RF Coding Level of Care Code Est Pt Level 3 (18810) Diagnoses Allergic dermatitis L23.9
[2023-12-27 09:08] VITALS: BP 102/66; PULSE 59; TEMP 36.6; O2SAT 96; BMI 33.8
== END 2023-12-27 09:38 | disposition home or self-care (01) ==
PROVIDERS: PCP Nurse Practitioner Family; Visit Provider Physician Assistant
DX: L23.9 Allergic contact dermatitis, unspecified cause (principal)
CPT/HCPCS: 99213

== ENCOUNTER → 2024-01-03 08:45 | Outpatient (REF) | payer MEDICARE, SELFPAY ==
--- NOTE | 2024-01-03 08:48 | CA_ITS ---
Transthoracic Echocardiogram Patient (Last, First, Middle): Jomar Cordova L Gender: Male Date of : 1950 Age: 73 Procedure Date: 01/03/2024 Procedure Type: Transthoracic Echocardiogram Location: OP Height: 165. cm Weight: 88.45 kg BSA: 1.96 m2 Heart Rate: 61 bpm BP: 128 / 70 mmHg Dike Supervisor: ELICIA Referring MD: Lorenzo Luis MD Repairer Evaporator: Flex Mckeon MD Symptoms: I71.21 - Aneurysm of the ascending aorta, without rupture Study Quality: Fair, Limited by order ECG Rhythm: Sinus Conclusions: - Moderately dilated ascending aorta 4.7 cm Findings Great Vessels There is moderate dilatation of the ascending aorta measuring 4.70 cm. Prior Study Comparison No significant change compared to prior study dated: 05/10/2023. Measurements 2D Linear Measurements Ao Root: 4.00 2.1-3.5 cm LVOT Diam: 2.10 3.0+(-)1.3 cm LVOT LVOT Pk Nestor: 1.11 LVOT Mn Nestor: 0.78 LVOT VTI: 0.22 LVOT Pk Grad: 5.00 LVOT Mn Grad: 3.00 LVOT Diam: 2.10 LVOT Area: 3.46 Great Vessels Aorta Ao Root-2D: 4.00 2.0-3.7 cm Ao Asc: 4.70 2.1-3.4 cm Ao Arch: 3.50 Updated in Other Vendor System with Status of Final Flex Mckeon MD electronically signed on 01/03/2024 10:04:34 AM with status of Final
== END ==
LOC: HO.CARD 08:45
PROVIDERS: PCP Nurse Practitioner Family; Visit Provider Internal Medicine
DX: I71.21 Aneurysm of the ascending aorta, without rupture (principal)
CPT/HCPCS: 93308

== ENCOUNTER → 2024-01-03 08:48 | Outpatient (BNV) | payer MEDICARE, SELFPAY | PROVIDERS: PCP Nurse Practitioner Family; Visit Provider Internal Medicine Cardiovascular Disease | DX: I71.21 Aneurysm of the ascending aorta, without rupture (principal) | CPT/HCPCS: 93308 ==

== ENCOUNTER 2024-01-11 13:03 | Outpatient (AMB) | payer MEDICARE, SELFPAY ==
[2024-01-11 13:23] VITALS: BP 112/60; PULSE 63; BMI 33.5
--- NOTE | 2024-01-11 13:23 | A.OFFVIS_ITS ---
Vital Signs 01/11/24 13:23 Height 5 ft 5 in Weight 201 lb 0.985 oz BMI 33.5 BP 112/60 Blood Pressure Location Lt brachial Position Sitting Pulse 63 Pulse Source Pulse Oximeter Intake Visit Reasons: 6 month follow up echo Health Information Tech Required: No Accompanied by: Self / Same As Patient Allergies No Known Allergies [No Known Allergies*] Allergy (Verified 12/27/23 09:10) Medication List - Last Reconciled 01/11/24 by Lorenzo Luis MD atorvastatin 40 mg PO DAILY budesonide 180 mcg/actuation (Pulmicort Flexhaler) 1 inh inhalation BID 30 days cholecalciferol (vitamin D3) 50 mcg PO DAILY clobetasol 0.05% 1 appl topical BID 1 week CPAP (CPAP Machine/Device) As directed diltiazem HCl CD 120 mg PO BID 90 days gabapentin 300 mg PO BEDTIME 90 days iron,carbonyl-vitamin C 65 mg iron- 125 mg (Vitron-C) 1 tab PO DAILY lisinopril 10 mg PO DAILY 90 days HPI Comments Details: Jomar returns for follow-up. 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 More recently, studies have also shown dilated aorta. Otherwise, has a history of SVT/NSVT. Overall, he is feeling good. No new complaints. [facility] Medical History Hyperlipidemia ILD (interstitial lung disease) Pneumonitis Restless legs syndrome (RLS) BARTOLO (obstructive sleep apnea) Essential hypertension Hx of skin cancer, basal cell Surgical History Hx of colonoscopy Hx of hernia repair Hx of arthroscopic knee surgery Family History Father No problems noted. Mother No problems noted. Brother Parkinson disease Brother No problems noted. Sister Pacemaker Sister No problems noted. Son No problems noted. Social History Household Members: Spouse Housing: Condominium Alcohol intake: never Patient Tobacco Use Status: Never used Tobacco e-Cigarette/Vaping Use: Never Used Second Hand Smoke Exposure: No Current occupational status: retired Cognitive needs: No Hearing needs: No Vision needs: No Review of Systems Const Denies chills, Denies fatigue, Denies fever(s), Denies weight gain and Denies weight loss ENT Denies dizziness Card Denies chest pain, Denies leg edema, Denies lightheadedness, Denies palpitations, Denies dyspnea on exertion, Denies orthopnea and Denies other Resp Denies cough and Denies dyspnea on exertion GI Denies hematochezia and Denies change in stool character Musc Denies abnormal gait, Denies muscle weakness, Denies numbness, Denies radiating pain into limb and Denies tingling Neuro Denies abnormal gait, Denies dizziness, Denies numbness and Denies tingling Endo Denies fatigue and Denies palpitations Physical Exam Vital Signs: Last Vital Signs Pulse 63 01/11/24 13:23 BP 112/60 01/11/24 13:23 BMI result Body Mass Index 33.5 Const General: comfortable and no acute distress Orientation/consciousness: patient oriented x3 HEENT Other: Unremarkable Head: Yes normal to inspection Neck Neck: Yes normal visual inspection Chest Chest palpation & inspection: normal inspection of the chest Resp Auscultation: clear to auscultation bilaterally Cardio Palpation: normal PMI Heart sounds: S1 normal heart sound present, S2 normal heart sound present, no gallops, no murmurs and no rubs GI Palpation (GI): Soft to palpation Back/Spine/Pelvis Other: unremarkable Skin General skin exam: no rashes or lesions noted Neuro General: patient oriented x3 Extrem General: Yes normal to inspection Psych Mental Status: mental status grossly normal Assessment & Plan Assessment & Plan (1) Apical variant hypertrophic cardiomyopathy: Code(s): I42.2 - Other hypertrophic cardiomyopathy Category: Medical Plan: Echocardiograms have been thought to be suggestive of apical asymmetric hypertrophy. No specific symptoms. We also discussed about family screening. (2) Ascending aortic aneurysm: Code(s): I71.21 - Aneurysm of the ascending aorta, without rupture Category: Medical Qualifiers: Presence of rupture: without rupture Qualified Code(s): I71.21 - Aneurysm of the ascending aorta, without rupture Plan: In the most recent echocardiogram, ascending aortic size 4.[address] scan was performed last month but not yet reported. Will request results for the same. In a prior CT scan from May, ascending aortic size 4.6 cm. (3) Coronary artery calcification seen on CT scan: Code(s): I25.10 - Atherosclerotic heart disease of jena coronary artery without angina pectoris Category: Medical Plan: In the chest CT scan, there is description of three-vessel coronary artery calcification. Clinically, he has got no chest pain whatsoever but there is family history of CAD. He remains on statins. LDL levels are in the 50s and 60s. Consider stress testing in the future. It was normal in 2020. (4) Atrial tachycardia: Code(s): I47.1 - Supraventricular tachycardia Category: Medical Plan: Continue diltiazem. No recent issues. (5) NSVT (nonsustained ventricular tachycardia): Code(s): I47.2 - Ventricular tachycardia Category: Medical Plan: In the Holter, 1 strip of 8 beat run but could not exclude supraventricular nature. No symptoms either. Does not appear to be of major significance. Myocardial perfusion imaging study shows normal perfusion. In the exercise stress test, he was able to exercise for 8.6 Mets without any significant arrhythmias. (6) Essential hypertension: Code(s): I10 - Essential (primary) hypertension Category: Medical Plan: Continue lisinopril. Seems stable. (7) BARTOLO (obstructive sleep apnea): Code(s): G47.33 - Obstructive sleep apnea (adult) (pediatric) Category: Medical Plan: Continue CPAP. Coding Level of Care Code Est Pt Level 4 (44700) Diagnoses 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 Aneurysm of ascending aorta without rupture I71.21 Presence of rupture: without rupture Coronary artery calcification seen on CT scan I25.10 Atrial tachycardia I47.1 NSVT (nonsustained ventricular tachycardia) I47.2 Essential hypertension I10 BARTOLO (obstructive sleep apnea) G47.33
== END 2024-01-11 14:05 | disposition home or self-care (01) ==
PROVIDERS: PCP Nurse Practitioner Family; Visit Provider Internal Medicine
DX: I42.2 Other hypertrophic cardiomyopathy (principal); I71.21 Aneurysm of the ascending aorta, without rupture; I25.10 Atherosclerotic heart disease of native coronary artery without angina pectoris; I47.10 Supraventricular tachycardia, unspecified; I47.20 Ventricular tachycardia, unspecified; I10 Essential (primary) hypertension; G47.33 Obstructive sleep apnea (adult) (pediatric)
CPT/HCPCS: 99214

== ENCOUNTER → 2024-01-11 13:03 | Outpatient (BNVA) | payer MEDICARE, SELFPAY | PROVIDERS: PCP Nurse Practitioner Family; Visit Provider Internal Medicine | DX: I42.2 Other hypertrophic cardiomyopathy (principal); I71.21 Aneurysm of the ascending aorta, without rupture; I25.10 Atherosclerotic heart disease of native coronary artery without angina pectoris; I47.10 Supraventricular tachycardia, unspecified; I47.20 Ventricular tachycardia, unspecified; I10 Essential (primary) hypertension; G47.33 Obstructive sleep apnea (adult) (pediatric); Z79.899 Other long term (current) drug therapy; Z99.89 Dependence on other enabling machines and devices | CPT/HCPCS: 99212 ==

== ENCOUNTER 2024-01-12 07:06 | Outpatient (REF) | payer MEDICARE, SELFPAY ==
[2024-01-12 10:41] LABS: MANUAL DIFF FLAG NO
[2024-01-12 11:21] LABS: Basophils Percent Auto 0.3 % (0-2); Eosinophils Absolute Auto 0.2 X10*3/uL (0.0-0.4); Eosinophils Percent Auto 3.6 % (0-4); Hematocrit 45.1 % (42.0-52.0); Hemoglobin 15.2 g/dl (14.0-18.0); Imm Gran Abs Auto 0.04 X10*3/uL (0.00-0.03); Imm Gran Pct Auto 0.6 % (0.0-0.4); Lymphocytes Absolute Auto 1.2 X10*3/uL (1.2-4.9); Lymphocytes Percent Auto 19.1 % (20-40); Mean Corpuscular HGB Conc 33.7 g/dl (31.0-36.0); Mean Corpuscular Hemoglobin 31.5 pg (27.0-33.0); Mean Corpuscular Volume 93.4 fL (80.0-98.0); Mean Platelet Volume 9.6 fL (9.4-12.4); Monocytes Absolute Auto 0.7 X10*3/uL (0.1-1.2); Neutrophils Absolute Auto 4.2 x10*3/uL (2.0-8.3); Neutrophils Percent Auto 65.4 % (45-73); Platelet Count 224 X10*3/uL (160-400); Red Blood Count 4.83 X10*6/uL (4.60-5.80); Red Cell Distribution Width 12.6 % (11.0-16.0); White Blood Count 6.4 X10*3/uL (4.8-10.8)
[2024-01-12 11:24] LABS: Appearance Urine Turbid; Color Urine Yellow; Glucose Urine UA Negative (Negative); Leukocyte Esterase Urine Trace (Negative); Nitrite Urine Negative (Negative); PH 5.5 (5.0-9.0); Specific Gravity - Urine 1.025 (1.005-1.025); UMIC TRIGGER UACC YES; Urine Blood Negative (Negative); Urine Ketones Negative (Negative); Urine Protein Negative (Neg-Trace)
[2024-01-12 11:29] LABS: Bacteria Urine None Seen (None Seen); Hyaline Casts Urine 0-2 /LPF (0-2); RBC Urine 0-2 /HPF (0-2); Squamous Epithelial Cell Urine 0-2 /HPF (0-2); WBC Urine 0-5 /HPF (0-5)
[2024-01-12 11:57] LABS: Alanine Aminotransferase 19 U/L (0-40); Albumin Level 4.1 g/dL (3.5-5.0); Alkaline Phosphatase 71 U/L (39-117); Anion Gap 12 (12-20); Aspartate Amino Transferase 23 U/L (5-37); Bilirubin Total 0.7 mg/dL (0.0-1.0); Blood Urea Nitrogen 21 mg/dL (9-16); Calcium 10.5 mg/dL (8.4-10.2); Carbon Dioxide 24 mmol/L (22-29); Chloride 109 mmol/L (96-108); Cholesterol 116 mg/dL (<200); Estimated Glomerular Filt Rate 55; Glucose Fasting 89 mg/dL (60-99); HDL Cholesterol 38 mg/dL (>40); LDL Cholesterol Calculated 64 mg/dL (<100); Potassium 5.2 mmol/L (3.3-5.1); Sodium 140 mmol/L (135-145); Total Protein 7.5 g/dL (6.5-8.0); Triglycerides 72 mg/dL (<150)
[2024-01-12 12:16] LABS: TSH reflex Free T4 1.43 uIU/mL (0.32-4.0)
== END 2024-01-12 07:07 | disposition home or self-care (01) ==
LOC: HO.HMGCLDS 07:06
PROVIDERS: PCP Nurse Practitioner Family; Visit Provider Nurse Practitioner Family
DX: Z00.00 Encounter for general adult medical examination without abnormal findings (principal); Z20.2 Contact with and (suspected) exposure to infections with a predominantly sexual mode of transmission
CPT/HCPCS: 36415; 80053; 80061; 81001; 84443; 85025

== ENCOUNTER 2024-02-03 07:01 | Outpatient (REF) | payer MEDICARE, SELFPAY ==
[2024-02-03 09:59] LABS: Appearance Urine Clear; Color Urine Yellow; Glucose Urine UA Negative (Negative); Leukocyte Esterase Urine Trace (Negative); Nitrite Urine Negative (Negative); PH 5.5 (5.0-9.0); UMIC TRIGGER UACC YES; Urine Blood Negative (Negative); Urine Ketones Negative (Negative); Urine Protein Negative (Neg-Trace)
[2024-02-03 10:05] LABS: Bacteria Urine None Seen (None Seen); Hyaline Casts Urine 0-2 /LPF (0-2); RBC Urine 0-2 /HPF (0-2); Squamous Epithelial Cell Urine 0-2 /HPF (0-2); WBC Urine 0-5 /HPF (0-5)
[2024-02-03 10:15] LABS: Anion Gap 10 (12-20); Carbon Dioxide 25 mmol/L (22-29); Chloride 110 mmol/L (96-108); Sodium 140 mmol/L (135-145)
[2024-02-03 10:42] LABS: Prostate Specific Antigen Scr 2.32 ng/mL (<0.05-4.0)
== END 2024-02-03 07:02 | disposition home or self-care (01) ==
LOC: HO.HMGCLDS 07:01
PROVIDERS: PCP Nurse Practitioner Family; Visit Provider Nurse Practitioner Family
DX: E87.5 Hyperkalemia (principal); Z12.5 Encounter for screening for malignant neoplasm of prostate
CPT/HCPCS: 36415; 80051; 81001; 81003; 84153

== ENCOUNTER → 2024-02-14 09:09 | Outpatient (REF) | payer MEDICARE, SELFPAY ==
--- NOTE | ~2024-02-14 | NM_ITS ---
Lexiscan Myocardial perfusion study Indication: Coronary artery disease Technique: The patient was brought in for a Lexiscan perfusion study on 02/14/2024 and was injected 0.4 mg of Lexiscan intravenously. Within a minute of this injection 30 mCi of sestamibi was given intravenously. Images were obtained using the SPECT gamma camera interlaced with the gating device. Images were obtained in supine position. Resting perfusion study was performed on 02/15/2024. Patient was administered 30 mCi of sestamibi intravenously at rest. Images were then obtained in supine position. Total DLP 102mGy-cm. Images were processed with the software and compared side to side in short axis, horizontal long axis and vertical long axis views. Findings: Frontal acquisition reviewed. Probable arrhythmia causing artifact during rest. The stress perfusion study showed no significant perfusion abnormality. Both uncorrected as well as CT attenuation corrected images were reviewed The gated study shows normal LV systolic function with calculated LVEF of 68%. LV cavity is normal in size. The gated study shows normal wall thickening and contraction of segments. Resting study shows diminished tracer uptake along the inferior wall. There is improvement with CT attenuation correction suggestive of diaphragmatic attenuation artifact. Gating at rest reveals normal wall motion with ejection fraction at >70%. The findings are consistent with no clear reversible or fixed perfusion abnormality. Apical thickening suggestive of apical variant hypertrophic cardiomyopathy. FL/FL cardiolite stress test Impression: 1. Myocardial perfusion imaging study shows no clear evidence of any ischemia or infarction. 2. Gated LVEF is 68% during stress and > 70% during rest. 3. Transient ischemic dilatation not present. EKG component of the test reported separately. Electronically signed by: Lorenzo Luis MD 02/16/2024 08:46 AM EDT
--- NOTE | 2024-02-14 09:13 | CA_ITS ---
Acquisition Time: 2024-02-14 09:49:58 Total Exercise Time: 00:02:00 Test Indications: SVT/NSVT Medications: SEE H Protocol: LEXISCAN Max HR: 095 BPM 64% of Pred: 147 BPM Max BP: 128/070 mmHG Max Work Load: 1.0 METS Pharmacological stress test with Lexiscan injection while sittng and kicking legs slowly, without anginal symptoms, with PACs / atrial runs/ PVC, with normotensive response to injection, with nondiagnositc EKGs. Nuclear images pending. Test reviewed with Dr. Mckeon Referred By: Lorenzo Luis Overread By: Brenda Hernadez
== END ==
LOC: HO.CARD 09:09
PROVIDERS: PCP Nurse Practitioner Family; Visit Provider Internal Medicine
DX: R07.2 Precordial pain (principal); I25.119 Atherosclerotic heart disease of native coronary artery with unspecified angina pectoris
CPT/HCPCS: 78452; 93017; A9500; J0280; J2785

== ENCOUNTER → 2024-02-14 09:13 | Outpatient (BNV) | payer MEDICARE, SELFPAY | PROVIDERS: PCP Nurse Practitioner Family; Visit Provider Nurse Practitioner | DX: I25.10 Atherosclerotic heart disease of native coronary artery without angina pectoris (principal); I42.2 Other hypertrophic cardiomyopathy | CPT/HCPCS: 78452; 93016; 93018 ==

== ENCOUNTER 2024-06-05 07:51 | Outpatient (AMB) | payer MEDICARE, SELFPAY ==
--- OUTSIDE RECORDS SUMMARY | 2024-06-05 07:53 | XMS_ITS ---
Author Organization [facility] Address [address] [place] [address] Care Team Providers Care Edi Developer Name Role Phone PARISH FUCHS Primary Care Provider Turner Bustamante Unavailable [phone] ALLERGIES No Known Allergies REASON FOR VISIT Patient presents today for a COLON SCREENING MEDICATIONS Medication SIG (Take, Route, Frequency, Duration) Notes Start Date End Date Status Vitamin D3 50 MCG (1999) 1 capsule Or ally Once a day for 30 day(s) Active Vitron-C 65-125 MG 1 tablet Orally Once a day for 30 day(s) Active Cartia XT 120 MG 1 capsule Orally Onc e a day Active Atorvastatin Calcium 40 MG 1 tablet Oral ly Once a day Active Lisinopril 10 MG 1 tablet Orally Once a day Active Gabapentin 300 MG Oral for 90 Active SOCIAL HISTORY Tobacco Use: Social History Observation Description Date Details (start date - stop date) Never Smoker NA - NA Sex Assigned At : Social History Observation Description Sex Assigned At Unknown Tobacco Use/Smoking Question Answer Notes Patient is a nonsmoker PROBLEMS Problem Type ICD Code Onset Dates Problem Status W/U Status Risk SNOMED Code Notes Problem Personal history of colonic polyps (Z86.010) Active confirmed History of polyp of colon (situation) (696268986) Problem Encounter for other preprocedural examination (Z01.818) Active confirmed Pre-procedure evaluation check (134634570) VITAL SIGNS BMI 32.44 kg/m2 08/24/2023 Blood pressure systolic 000 mm Hg 08/24/19 24 Blood pressure diastolic 000 mm Hg 024 Height 66 in 08/24/2023 Temperature 97.8 degrees Fahrenheit 08/24/19 24 Weight 201 lbs 08/24/2023 Encounters Encounter Location Date Provider Diagnosis [facility] [address] [place] [address] 08/24/2023 Turner Barrera Encounter for screen ing for malignant neoplasm of colon Z12.11 ; Encounter for other preprocedural examination Z01.818 and Personal history of colonic polyps Z86.010 ASSESSMENTS Encounter Date Diagnosis Assessment Notes Treatment Notes Treatment Clinical Notes 08/24/2023 Encounter for screening for malignant neoplasm of colon (ICD-10 - Z12.11) 08/24/2023 Encounter for other preprocedural examination (ICD-10 - Z01.818) 08/24/2023 Personal history of colonic polyps (ICD-10 - Z86.010) PLAN OF TREATMENT Future Test Test Name Order Date COLONOSCOPY 09/13/2023 Next Appt Details Follow Up: prn, Reason: Progress Notes * Examination Category Sub-Category Detail Notes General Examination GENERAL APPEARANCE: pleasant , well nourished, well developed, in no acute distress HEAD: EYES: sclera non-icteric EARS: NOSE: THROAT: NECK/THYROID: no cervical lymphade nopathy, neck supple HEART: S1, S2 normal CHEST: LUNGS: clear to auscultatio n bilaterally ABDOMEN: normal bowel sounds, no guarding or rigidity, no guarding or rigidity, no masses palpable, soft, nontender, nondistended NEUROLOGIC: alert and oriented SKIN: nonjaundiced, no spi briana angiomata EXTREMITIES: no edema PERIPHERAL PULSES: BACK: BREASTS: MUSCULOSKELETAL: MALE GENITOURINARY: LYMPH NODES: RECTAL EXAM: FEMALE GENITOURINARY: ORAL CAVITY: mucosa moist
--- OUTSIDE RECORDS SUMMARY | 2024-06-05 07:53 | XMS_ITS | Patient Health Record ---
Author Organization [facility] Address [address] [place] [address] Care Team Providers Care Cans Vacuum Tester Name Role Phone PARISH FUCHS Primary Care Provider Turner Bustamante Unavailable [phone] ALLERGIES No Known Allergies REASON FOR REFERRAL No Information MEDICATIONS Medication SIG (Take, Route, Frequency, Duration) Notes Start Date End Date Status Gabapentin 300 MG Oral for 90 Active Vitamin D3 50 MCG (1999) 1 capsule Or ally Once a day for 30 day(s) Active Vitron-C 65-125 MG 1 tablet Orally Once a day for 30 day(s) Active Cartia XT 120 MG 1 capsule Orally Onc e a day Active Atorvastatin Calcium 40 MG 1 tablet Oral ly Once a day Active Lisinopril 10 MG 1 tablet Orally Once a day Active IMMUNIZATIONS Vaccine Route Administration Date Status Comme nts Influenza Unknown 05/13/2023 Administered SOCIAL HISTORY Tobacco Use: Social History Observation Description Date Details (start date - stop date) Never Smoker NA - NA Sex Assigned At : Social History Observation Description Sex Assigned At Unknown Tobacco Use/Smoking Question Answer Notes Patient is a nonsmoker Alcohol Screen Question Answer Notes Did you have a drink containing alcohol in the p ast year? No Points 0 Interpretation Negative PROBLEMS Problem Type ICD Code Onset Dates Problem Status W/U Status Risk SNOMED Code Notes Problem Hx of adenomatous colonic polyps (Z86.010) Active confirmed [id number] Problem Encounter for screening for malignant neoplasm of colon (Z12.11) Active confirmed 782054409 Problem Pre-procedural examination (Z01.818) Active confirmed [id number] Problem Personal history of colonic polyps (Z86.010) Active confirmed History of poly p of colon (situation) (335562252) Problem Encounter for other preprocedural examination (Z01.818) Active confirmed Pre-procedure evaluation check (957261742) Problem Diverticulosis of large intestine without perforation or abscess without bleeding (K57.30) Active confirmed Diverticul ar disease of colon (896232030) VITAL SIGNS Temperature 97.8 degrees Fahrenheit 08/24/2023 Blood pressure diastolic 000 mm Hg 08/24/2023 Height 66 in 08/24/2023 Blood pressure systolic 000 mm Hg 08/24/2023 Weight 201 lbs 08/24/2023 BMI 32.44 kg/m2 08/24/2023 Encounters Encounter Location Date Provider Diagnosis [facility] [address] [place], [place] [id number] 12/01/2023 Turner Barrera Encounter for screen ing colonoscopy Z12.11 ; Personal history of colonic polyps Z86.010 ; Diverticulosis of large intestine without perforation or abscess without bleeding K57.30 and Other hemorrhoids K64.8 [facility] [address] [place] [address] 08/24/2023 Turner Barrera Encounter for screen ing for malignant neoplasm of colon Z12.11 ; Encounter for other preprocedural examination Z01.818 and Personal history of colonic polyps Z86.010 ASSESSMENTS Encounter Date Diagnosis Assessment Notes Treatment Notes Treatment Clinical Notes 12/01/2023 Encounter for screening colonoscopy (ICD-10 - Z12.11) 12/01/2023 Personal history of colonic polyps (ICD-10 - Z86.010) 08/24/2023 Encounter for screening for malignant neoplasm of colon (ICD-10 - Z12.11) 08/24/2023 Encounter for other preprocedural examination (ICD-10 - Z01.818) 12/01/2023 Diverticulosis of large intestine without perforation or abscess without bleeding (ICD-10 - K57.30) 08/24/2023 Personal history of colonic polyps (ICD-10 - Z86.010) 12/01/2023 Other hemorrhoids (ICD-10 - K64.8) PLAN OF TREATMENT Future Test Test Name Order Date COLONOSCOPY 03/10/2018 COLONOSCOPY 09/13/2023 Insurance Providers Payer Name Payer Address Payer Phone Subscriber Number Group Number Insured Name Patient Relationship to Insured Coverage Start Date Coverage End Date [facility] [address] [place] [phone] [id number] LANA HURST Self - patient is the insured MEDICAL (GENERAL) HISTORY Medical History History ICD Code Denies UT,DM,CVA,Lung disease,renal dise ase Rapid heartbeat --Holter gissell matthew in November,--baseline EKG abnormalities--sees Dr. Luis HTN Colonoscopy 01/2010 2 small tubular adeno mas and diverticulosis Hyperlipidemia Sleep apnea-uses cpap machine--Dr.Rani Kellee augustine Colonoscopy 2017 with 2 small tubular ad enomas He sees Dr. Christianson for an abnormal CT scan of the chest from May of 2023, although he has no particular pulmonary symptoms. Surgical History Surgery Date(Month/Year) Torn ligament left knee Basal cell skin cancers
--- OUTSIDE RECORDS SUMMARY | 2024-06-05 07:53 | XMS_ITS ---
Author Organization [facility] Address [address] [place] [address] Care Team Providers Care Braid Cutter Name Role Phone PARISH FUCHS Primary Care Provider Turner Bustamante [phone] REASON FOR VISIT screening, hx polyps PROBLEMS Problem Type ICD Code Onset Dates Problem Status W/U Status Risk SNOMED Code Notes Problem Diverticulosis of large intestine without perforation or abscess without bleeding (K57.30) Active confirmed Diverticul ar disease of colon (644976859) Encounters Encounter Location Date Provider Diagnosis [facility] [address] [place] [phone] 12/01/2023 Turner Barrera Encounter for scre ening colonoscopy Z12.11 ; Personal history of colonic polyps Z86.010 ; Diverticulosis of large intestine without perforation or abscess without bleeding K57.30 and Other hemorrhoids K64.8 ASSESSMENTS Encounter Date Diagnosis Assessment Notes Treatment Notes Treatment Clinical Notes 12/01/2023 Encounter for screening colonoscopy (ICD-10 - Z12.11) 12/01/2023 Personal history of colonic polyps (ICD-10 - Z86.010) 12/01/2023 Diverticulosis of large intestine without perforation or abscess without bleeding (ICD-10 - K57.30) 12/01/2023 Other hemorrhoids (ICD-10 - K64.8) PLAN OF TREATMENT No Information
[2024-06-05 07:56] VITALS: BP 118/70; PULSE 64; O2SAT 97; BMI 33.1
--- NOTE | 2024-06-05 07:56 | MHC.PC.OV ---
Vital Signs 06/05/24 07:56 Height 5 ft 5 in Weight 199 lb BMI 33.1 BP 118/70 Blood Pressure Location Lt brachial Position Sitting Pulse 64 Pulse Source Pulse Oximeter Pulse Oximetry (%) 97 Oxygen Delivery Method Room Air Intake Visit Reasons: 6 wed f/u Intake Note: Pt is here today for his 6mo. f/u Allergies No Known Allergies [No Known Allergies*] Allergy (Verified 06/05/24 07:57) Medication List - Last Reconciled 06/05/24 by JANETT Pastor atorvastatin 40 mg PO DAILY budesonide 180 mcg/actuation (Pulmicort Flexhaler) 1 inh inhalation BID 30 days cholecalciferol (vitamin D3) 50 mcg PO DAILY CPAP (CPAP Machine/Device) As directed diltiazem HCl CD 120 mg PO BID 90 days gabapentin 300 mg PO BEDTIME 90 days iron,carbonyl-vitamin C 65 mg iron- 125 mg (Vitron-C) 1 tab PO DAILY lisinopril 10 mg PO DAILY 90 days Tobacco use date assessed: 06/05/24 Fall risk assessment: No Falls in past year Last assessed Fall Risk: 06/05/24 Dental Screening Dental Screen Date: 06/05/24 Did you have a dental visit in the last 12 months?: Yes Did you have a dental problem in the last 6 months where you did not have access to dental care?: No Was dental information given to patient?: Patient has dentist HPI 6 wed f/u HPI Details Chief Complaint The patient presents for a follow-up regarding hypertension management and laboratory evaluation. History of Present Illness The patient is a 73-year-old male presenting with a follow-up for hypertension management. He expresses curiosity regarding his blood pressure and cholesterol levels. He has a history of hypertension, which is currently well-managed, as indicated by recent reports and subjective statements describing his blood pressure as phenomenal recently. The patient has regular follow-ups with cardiology and pulmonology, with no recent episodes of chest pain, shortness of breath, or other cardiopulmonary symptoms reported. He denies any symptoms such as fever, chills, headaches, dizziness, or blurred vision. The patient has experienced a weight loss of approximately three pounds in the last week. There are no reports of lower extremity swelling, and his lung assessment has been described as exceptionally clear. The patient follows up regularly with specialists for comprehensive management of his conditions and undergoes laboratory evaluations to monitor his health status. Social History - Reports traveling to [place] for the holidays. Health Maintenance - Discussed the importance of regular laboratory evaluations, including fasting before tests. - Recommendation to receive a high-dose influenza vaccine at the pharmacy was provided. Review of Systems - Cardiovascular: Denies chest pain, shortness of breath. - Neurological: Denies headaches, dizziness, blurred vision. - General: Denies fever, chills. Physical Exam General: Cooperative, healthy appearing, comfortable, no acute distress and well developed Orientation: Patient oriented x3 Limitations: No limitations Head: Normal to inspection Ears: Hearing grossly normal bilaterally Nose: Normal external nose present Face and sinus: Normal facial exam Eyes: Appearance normal, both eyes and all related structures Neck: Normal visual inspection and Yes full ROM Respiratory: Exceptionally clear lungs. Normal respiratory effort and able to speak in complete sentences. Clear to auscultation bilaterally Cardiovascular: Regular rate and rhythm. Heart sounds good. Normal S1 and S2 GI: Normal to inspection. Soft to palpation and nontender Skin: No rashes or lesions noted Neuro: Patient oriented x3 Extremities: Normal to inspection. No swelling noted Results Plan - Obtain laboratory evaluations to monitor blood pressure and cholesterol levels, ensuring to fast prior to tests. - The patient is advised to follow up before the july for laboratory results. - Continues with regular follow-ups with cardiology and pulmonology to ensure comprehensive management of hypertension. - Recommends receiving the high-dose influenza vaccination at a pharmacy. Patient was informed and verbally consented to the use of an ambient scribe for clinic note documentation during this visit. Discussion Notes During the visit, I discussed the status of the patient's hypertension, which is presently well-controlled. We reviewed the necessity of laboratory evaluations to monitor cholesterol and blood pressure effectively. The patient understood the importance of fasting before laboratory tests. I advised him on getting a high-dose influenza vaccine, given his age, with the particular variant only available at the pharmacy. We agreed on a follow-up plan to review laboratory results before the july, and he will continue to attend regular specialist consultations for comprehensive management of his hypertension and overall health maintenance. All potential treatment strategies, including medication adjustment and the efficacy of current lifestyle modifications, were reviewed. Patient Instructions - Schedule and complete fasting laboratory tests before the july. - Obtain the high-dose influenza vaccination at the pharmacy. - Continue regular follow-ups with cardiology and pulmonology specialists. - Maintain current lifestyle modifications to manage blood pressure effectively. - Watch for any new or worsening symptoms and seek care as needed. [facility] Medical History Hyperlipidemia ILD (interstitial lung disease) Pneumonitis Restless legs syndrome (RLS) BARTOLO (obstructive sleep apnea) Essential hypertension Hx of skin cancer, basal cell Surgical History Hx of colonoscopy Hx of hernia repair Hx of arthroscopic knee surgery Family History Father No problems noted. Mother No problems noted. Brother Parkinson disease Brother No problems noted. Sister Pacemaker Sister No problems noted. Son No problems noted. Social History Household Members: [facility] Alcohol intake: never Patient Tobacco Use Status: Never used Tobacco e-Cigarette/Vaping Use: Never Used Second Hand Smoke Exposure: No Current occupational status: retired Cognitive needs: No Hearing needs: No Vision needs: Yes Questionnaire PHQ-9 Over the last 2 weeks, how often have you been bothered by any of the following problems? 1. Little interest or pleasure in doing things: not at all 2. Feeling down, depressed, or hopeless: not at all 3. Trouble falling or staying asleep, or sleeping too much: not at all 4. Feeling tired or having little energy: not at all 5. Poor appetite or overeating: not at all 6. Feeling bad about yourself - or that you are a failure or have let yourself or your family down: not at all 7. Trouble concentrating on things, such as reading the newspaper or watching television: not at all 8. Moving or speaking so slowly that other people could have noticed. Or the opposite - being so fidgety or restless that you have been moving around a lot more than usual: not at all 9. Thoughts that you would be better off or of hurting yourself in some way: not at all Total score: 0 Source: Developed by Drs. Turner Jennings, AleenaEzio Chicas and colleagues, with an educational valerie from [employer]. Thrive Questionnaire Date Thrive assessed: 12/02/23 I am a: Patient What is your living situation today?: I have a steady place to live Within the past 12 months, did the food you bought not last and you didn't have the money to get more?: Never true Within the past 12 months, did you worry whether your food would run out before you got money to buy more?: Never true Do you have trouble paying for medicines?: No Do you have trouble getting transportation to medical appointments?: No Do you have trouble paying your heating and electricity bill?: No Do you have trouble taking care of your child, family member or friend?: No Do you have trouble with day-to-day activities such as bathing, preparing meals, shopping, managing finances, etc.?: No Are you currently unemployed and looking for a job?: No Are you interested in more education?: No Please select the resources that you would like help with: None Currently or been in a relationship where the following occur: No concerns reported THRIVE Score: 0 AUDIT C Alcohol Use Questionnaire (AUDIT-C) 1. How often do you have a drink containing alcohol?: Never 3. How often do you have six or more drinks on one occasion?: Never Total Score: 0 SEVERO-7 AMB Questionnaire SEVERO-7 Date SEVERO - 7 assessed: 12/02/23 Feeling nervous, anxious, or on edge: 0 = Not at all Not being able to stop or control worryin = Not at all Worrying too much about different things: 0 = Not at all Trouble relaxin = Not at all Being so restless that it is hard to sit still: 0 = Not at all Becoming easily annoyed or irritable: 0 = Not at all Feeling afraid as if something awful might happen: 0 = Not at all Total SEVERO-7 score (0-4 normal; 5-9 mild; 10-14 moderate; 15-21 severe): 0 Source: Developed by Drs. Turner Jennings, Ezio Peguero and colleagues, with an educational valerie from [employer]. Physical exam (Primary Care) Vital Signs: Last Vital Signs Pulse 64 06/05/24 07:56 BP 118/70 06/05/24 07:56 Pulse Ox 97 06/05/24 07:56 Oxygen Delivery Method Room Air 06/05/24 07:56 BMI result Body Mass Index 33.1 Tobacco/Smoking Status: Tobacco use Status Tobacco use date assessed 06/05/24 06/05/24 08:01 Patient Tobacco Use Status Never used Tobacco 06/05/24 08:01 e-Cigarette/Vaping Use Never Used 06/05/24 08:01 PHQ-9: PHQ-9 Score PHQ-9: Total score 0 06/05/24 08:01 Thrive Assessment: Date of Thrive Assessment Date Thrive assessed 12/02/23 06/05/24 08:01 Currently or been in a relationship where the following occur: No concerns reported Coding Level of Care Code Est Pt Level 3 (70287) Diagnoses Essential hypertension I10 Hyperlipidemia E78.5 Assessment & Plan Assessment & Plan (1) Essential hypertension: Code(s): I10 - Essential (primary) hypertension Category: Medical (2) Hyperlipidemia: Code(s): E78.5 - Hyperlipidemia, unspecified Category: Medical Plan . Orders: Orders Comprehensive [place]. Panel Fast Today E78.5 - Hyperlipidemia, unspecified, I10 - Essential (primary) hypertension TSH reflex Free T4 Today E78.5 - Hyperlipidemia, unspecified, I10 - Essential (primary) hypertension UA CC w/rflx Micro + Cult Today E78.5 - Hyperlipidemia, unspecified, I10 - Essential (primary) hypertension Lipid Panel Today E78.5 - Hyperlipidemia, unspecified, I10 - Essential (primary) hypertension Complete Blood Count Auto Diff Today E78.5 - Hyperlipidemia, unspecified, I10 - Essential (primary) hypertension
== END 2024-06-05 14:23 | disposition home or self-care (01) ==
PROVIDERS: PCP Nurse Practitioner Family; Visit Provider Nurse Practitioner Family
DX: I10 Essential (primary) hypertension (principal); E78.5 Hyperlipidemia, unspecified

== ENCOUNTER → 2024-06-05 07:51 | Outpatient (BNVA) | payer MEDICARE, SELFPAY | PROVIDERS: PCP Nurse Practitioner Family; Visit Provider Nurse Practitioner Family | DX: I10 Essential (primary) hypertension (principal); E78.5 Hyperlipidemia, unspecified | CPT/HCPCS: 96127; 99212 ==

== ENCOUNTER 2024-06-06 12:15 | Outpatient (AMB) | payer MEDICARE, SELFPAY ==
--- OUTSIDE RECORDS SUMMARY | 2024-06-06 12:17 | XMS_ITS | Patient Health Record ---
Author Organization [facility] Address [address] [place] [address] Care Team Providers Care Tanning Consultant Name Role Phone PARISH FUCHS Primary Care Provider Turner Bustamante Unavailable [phone] ALLERGIES No Known Allergies REASON FOR REFERRAL [...] of adenomatous colonic polyps (Z86.010) Active confirmed 684080810 Problem Encounter for screening for malignant neoplasm of colon (Z12.11) Active confirmed 088552522 Problem Pre-procedural examination (Z01.818) Active confirmed 006771659459962 Problem Personal history of colonic polyps (Z86.010) Active confirmed History of poly p of colon (situation) (526502607) Problem Encounter for other preprocedural examination (Z01.818) Active confirmed Pre-procedure evaluation check (886651483) Problem Diverticulosis of large intestine without perforation or abscess without bleeding (K57.30) Active confirmed Diverticul ar disease of colon (795350458) VITAL SIGNS Temperature 97.8 degrees Fahrenheit 08/24/2023 Blood pressure diastolic 000 mm Hg 08/24/2023 Height 66 in 08/24/2023 Blood pressure systolic 000 mm Hg 08/24/2023 Weight 201 lbs 08/24/2023 BMI 32.44 kg/m2 08/24/2023 Encounters Encounter Location Date Provider Diagnosis [facility] Outpatient [address] [place], [place] [id number] 12/01/2023 Turner Barrera Encounter for screen ing colonoscopy Z12.11 ; Personal history of colonic polyps Z86.010 ; Diverticulosis of large intestine without perforation or abscess without bleeding K57.30 and Other hemorrhoids K64.8 [facility] [address] [place] [address] 08/24/2023 Turner Barrera Encounter for screen ing [...] Insured Coverage Start Date Coverage End Date [facility] [address] [place] [phone] [id number] LANA HURST Self - patient is the insured MEDICAL (GENERAL) HISTORY Medical History History ICD Code Denies MD,DM,CVA,Lung disease,renal dise ase Rapid heartbeat --Holter gissell [...]
--- OUTSIDE RECORDS SUMMARY | 2024-06-06 12:17 | XMS_ITS ---
Author Organization [facility] Address [address] [place] [address] Care Team Providers Care Fig Bar Machine Operator Name Role Phone PARISH FUCHS Primary Care Provider Turner Bustamante Unavailable [phone] ALLERGIES No Known Allergies REASON FOR VISIT [...] confirmed History of polyp of colon (situation) (035297469) Problem Encounter for other preprocedural examination (Z01.818) Active confirmed Pre-procedure evaluation check (796857286) VITAL SIGNS BMI 32.44 kg/m2 08/24/2023 Blood pressure systolic 000 mm Hg 08/24/19 24 Blood pressure diastolic 000 mm Hg 024 Height 66 in 08/24/2023 Temperature 97.8 degrees Fahrenheit 08/24/19 24 Weight 201 lbs 08/24/2023 Encounters Encounter Location Date Provider Diagnosis [facility] [address] [place] [address] 08/24/2023 Turner Barrera Encounter for screen ing [...]
--- OUTSIDE RECORDS SUMMARY | 2024-06-06 12:17 | XMS_ITS ---
Author Organization [facility] Address [address] [place] [address] Care Team Providers Care Glass Block Installer Name Role Phone PARISH FUCHS Primary Care Provider Turner Bustamante [phone] REASON FOR VISIT screening, hx polyps PROBLEMS Problem Type ICD Code Onset Dates Problem Status W/U Status Risk SNOMED Code Notes Problem Diverticulosis of large intestine without perforation or abscess without bleeding (K57.30) Active confirmed Diverticul ar disease of colon (015568986) Encounters Encounter Location Date Provider Diagnosis [facility] Outpatient [address] [place] [id number] 12/01/2023 Turner Barrera Encounter for scre ening [...]
[2024-06-06 12:33] VITALS: BP 116/68; PULSE 60; BMI 33.2
--- NOTE | 2024-06-06 12:33 | A.OFFVIS_ITS ---
Vital Signs 06/06/24 12:33 Height 5 ft 5 in Weight 199 lb 4.766 oz BMI 33.2 BP 116/68 Blood Pressure Location Lt brachial Position Sitting Pulse 60 Pulse Source Pulse Oximeter Intake Visit Reasons: 1yr f/u r/s fr 03/30 [employer] Required: No Accompanied by: Self / Same As Patient Allergies No Known Allergies [No Known Allergies*] Allergy (Verified 06/06/24 12:35) Medication List - Last Reconciled 06/06/24 by Lorenzo Luis MD atorvastatin 40 mg PO DAILY budesonide 180 mcg/actuation (Pulmicort Flexhaler) 1 inh inhalation BID 30 days cholecalciferol (vitamin D3) 50 mcg PO DAILY CPAP (CPAP Machine/Device) As directed diltiazem HCl CD 120 mg PO BID 90 days gabapentin 300 mg PO BEDTIME 90 days iron,carbonyl-vitamin C 65 mg iron- 125 mg (Vitron-C) 1 tab PO DAILY lisinopril 10 mg PO DAILY 90 days HPI Comments Details: Jomar returns for follow-up. 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 More recently, studies have also shown dilated aorta. Otherwise, has a history of SVT/NSVT. Since last seen, no new complaints. He does not have any shortness of breath or dizzy spells or syncope or in fact anything cardiac sounding. He states he feels good. [facility] Medical History (Updated 06/05/24 @ 08:05 by Sandor Graham, [facility]) Hyperlipidemia ILD (interstitial lung disease) Pneumonitis Restless legs syndrome (RLS) BARTOLO (obstructive sleep apnea) Essential hypertension Hx of skin cancer, basal cell Surgical History Hx of colonoscopy Hx of hernia repair Hx of arthroscopic knee surgery Family History Father No problems noted. Mother No problems noted. Brother Parkinson disease Brother No problems noted. Sister Pacemaker Sister No problems noted. Son No problems noted. Social History Household Members: Spouse Housing: Condominium Alcohol intake: never Patient Tobacco Use Status: Never used Tobacco e-Cigarette/Vaping Use: Never Used Second Hand Smoke Exposure: No Current occupational status: retired Cognitive needs: No Hearing needs: No Vision needs: Yes Review of Systems Const Denies chills, Denies fatigue, Denies fever(s), Denies weight gain and Denies w eight loss ENT Denies dizziness Card Denies chest pain, Denies leg edema, Denies lightheadedness, Denies palpitations, Denies dyspnea on exertion, Denies orthopnea and Denies other Resp Denies cough and Denies dyspnea on exertion GI Denies hematochezia and Denies change in stool character Musc Denies abnormal gait, Denies muscle weakness, Denies numbness, Denies radiating pain into limb and Denies tingling Neuro Denies abnormal gait, Denies dizziness, Denies numbness and Denies tingling Endo Denies fatigue and Denies palpitations Physical Exam Vital Signs: Last Vital Signs Pulse 60 06/06/24 12:33 BP 116/68 06/06/24 12:33 BMI result Body Mass Index 33.2 Const General: comfortable and no acute distress Orientation/consciousness: patient oriented x3 HEENT Other: Unremarkable Head: Yes normal to inspection Neck Neck: Yes normal visual inspection Chest Chest palpation & inspection: normal inspection of the chest Resp Auscultation: clear to auscultation bilaterally Cardio Palpation: normal PMI Heart sounds: S1 normal heart sound present, S2 normal heart sound present, no gallops, no murmurs and no rubs GI Palpation (GI): Soft to palpation Back/Spine/Pelvis Other: unremarkable Skin General skin exam: no rashes or lesions noted Neuro General: patient oriented x3 Extrem General: Yes normal to inspection Psych Mental Status: mental status grossly normal Assessment & Plan Assessment & Plan (1) Apical variant hypertrophic cardiomyopathy: Code(s): I42.2 - Other hypertrophic cardiomyopathy Category: Medical Plan: Echocardiograms have been thought to be suggestive of apical asymmetric hypertrophy. No specific symptoms and hence no specific treatment at this time. Family screening has been discussed in the past. Question of NSVT in a prior Holter. We will check echocardiogram/Holter in 1 year. (2) Ascending aortic aneurysm: Code(s): I71.21 - Aneurysm of the ascending aorta, without rupture Category: Medical Qualifiers: Presence of rupture: without rupture Qualified Code(s): I71.21 - Aneurysm of the ascending aorta, without rupture Plan: In the echocardiogram from 01/08/2024, ascending aortic size 4.7 cm. Previously, comparable at 4.[address] scan from November, ascending aortic size 4.5 cm. We will continue to follow. (3) Coronary artery calcification seen on CT scan: Code(s): I25.10 - Atherosclerotic heart disease of [place] coronary artery without angina pectoris Category: Medical Plan: Chest CT scan reports coronary artery calcification. Clinically, he has got no angina. Myocardial perfusion imaging study is also unremarkable. Continue statins. Cholesterol levels are well controlled. (4) Atrial tachycardia: Code(s): I47.1 - Supraventricular tachycardia Category: Medical Plan: Continue diltiazem. No recent issues. (5) Essential hypertension: Code(s): I10 - Essential (primary) hypertension Category: Medical Plan: Continue lisinopril. Seems stable. (6) BARTOLO (obstructive sleep apnea): Code(s): G47.33 - Obstructive sleep apnea (adult) (pediatric) Category: Medical Plan: Continue CPAP. Orders: Orders CA echo transthoracic complete 1 Year I42.2 - Other hypertrophic cardiomyopathy ECG 3 day holter monitor 1 Year I47.2 - Ventricular tachycardia Coding Level of Care Code Est Pt Level 4 (42451) Diagnoses 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 Aneurysm of ascending aorta without rupture I71.21 Presence of rupture: without rupture Coronary artery calcification seen on CT scan I25.10 Atrial tachycardia I47.1 Essential hypertension I10 BARTOLO (obstructive sleep apnea) G47.33
== END 2024-06-06 12:48 | disposition home or self-care (01) ==
PROVIDERS: PCP Nurse Practitioner Family; Visit Provider Internal Medicine
DX: I42.2 Other hypertrophic cardiomyopathy (principal); I71.21 Aneurysm of the ascending aorta, without rupture; I25.10 Atherosclerotic heart disease of native coronary artery without angina pectoris; I47.10 Supraventricular tachycardia, unspecified; I10 Essential (primary) hypertension; G47.33 Obstructive sleep apnea (adult) (pediatric)
CPT/HCPCS: 99214

== ENCOUNTER → 2024-06-06 12:15 | Outpatient (BNVA) | payer MEDICARE, SELFPAY | PROVIDERS: PCP Nurse Practitioner Family; Visit Provider Internal Medicine | DX: I42.2 Other hypertrophic cardiomyopathy (principal); I71.21 Aneurysm of the ascending aorta, without rupture; I25.10 Atherosclerotic heart disease of native coronary artery without angina pectoris; I10 Essential (primary) hypertension; I47.10 Supraventricular tachycardia, unspecified; G47.33 Obstructive sleep apnea (adult) (pediatric); Z99.89 Dependence on other enabling machines and devices | CPT/HCPCS: 99212 ==

== ENCOUNTER 2024-07-03 06:50 | Outpatient (REF) | payer MEDICARE, SELFPAY ==
--- OUTSIDE RECORDS SUMMARY | 2024-07-03 06:51 | XMS_ITS ---
Author Organization [facility] Address [address] [place] [address] Care Team Providers Care Vision Impaired Teacher Name Role Phone PARISH FUCHS Primary Care Provider Turner Bustamante Unavailable [phone] ALLERGIES No Known Allergies REASON FOR VISIT [...] confirmed History of polyp of colon (situation) (448213543) Problem Encounter for other preprocedural examination (Z01.818) Active confirmed Pre-procedure evaluation check (116634351) VITAL SIGNS BMI 32.44 kg/m2 08/24/2023 Blood pressure systolic 000 mm Hg 08/24/19 24 Blood pressure diastolic 000 mm Hg 024 Height 66 in 08/24/2023 Temperature 97.8 degrees Fahrenheit 08/24/19 24 Weight 201 lbs 08/24/2023 Encounters Encounter Location Date Provider Diagnosis [facility] [address] [place] [address] 08/24/2023 Turner Barrera Encounter for screen ing [...]
--- OUTSIDE RECORDS SUMMARY | 2024-07-03 06:51 | XMS_ITS | Patient Health Record ---
Author Organization [facility] Address [address] [place] [address] Care Team Providers Care Sr. Strategic Sourcing Manager Name Role Phone PARISH FUCHS Primary Care Provider Turner Bustamante Unavailable [phone] ALLERGIES No Known Allergies REASON FOR REFERRAL [...] of adenomatous colonic polyps (Z86.010) Active confirmed 495070961 Problem Encounter for screening for malignant neoplasm of colon (Z12.11) Active confirmed 812406419 Problem Pre-procedural examination (Z01.818) Active confirmed 352361118976962 Problem Personal history of colonic polyps (Z86.010) Active confirmed History of poly p of colon (situation) (632737663) Problem Encounter for other preprocedural examination (Z01.818) Active confirmed Pre-procedure evaluation check (722819172) Problem Diverticulosis of large intestine without perforation or abscess without bleeding (K57.30) Active confirmed Diverticul ar disease of colon (606162707) VITAL SIGNS Temperature 97.8 degrees Fahrenheit 08/24/2023 Blood pressure diastolic 000 mm Hg 08/24/2023 Height 66 in 08/24/2023 Blood pressure systolic 000 mm Hg 08/24/2023 Weight 201 lbs 08/24/2023 BMI 32.44 kg/m2 08/24/2023 Encounters Encounter Location Date Provider Diagnosis [facility] Out[facility] [address] [place], [place] [phone] 12/01/2023 Turner Barrera Encounter for screen ing colonoscopy Z12.11 ; Personal history of colonic polyps Z86.010 ; Diverticulosis of large intestine without perforation or abscess without bleeding K57.30 and Other hemorrhoids K64.8 [facility] [address] [place] [address] 08/24/2023 Turner Barrera Encounter for screen ing [...] Coverage Start Date Coverage End Date [facility] [address] [place] [phone] [id number] LANA HURST Self - patient is the insured MEDICAL (GENERAL) HISTORY Medical History History ICD Code Denies [place],DM,CVA,Lung disease,renal dise ase Rapid heartbeat --Holter gissell [...]
[2024-07-03 09:58] LABS: MANUAL DIFF FLAG NO
[2024-07-03 10:03] LABS: Appearance Urine Clear; Color Urine Yellow; Glucose Urine UA Negative (Negative); Leukocyte Esterase Urine Negative (Negative); Nitrite Urine Negative (Negative); PH 5.5 (5.0-9.0); Urine Blood Negative (Negative); Urine Ketones Negative (Negative); Urine Protein Negative (Neg-Trace)
[2024-07-03 10:05] LABS: Basophils Percent Auto 0.2 % (0-2); Eosinophils Absolute Auto 0.2 X10*3/uL (0.0-0.4); Hematocrit 41.4 % (42.0-52.0); Imm Gran Abs Auto 0.02 X10*3/uL (0.00-0.03); Imm Gran Pct Auto 0.4 % (0.0-0.4); Lymphocytes Absolute Auto 1.1 X10*3/uL (1.2-4.9); Lymphocytes Percent Auto 21.2 % (20-40); Mean Corpuscular HGB Conc 33.8 g/dl (31.0-36.0); Mean Corpuscular Hemoglobin 31.4 pg (27.0-33.0); Mean Corpuscular Volume 92.8 fL (80.0-98.0); Mean Platelet Volume 9.4 fL (9.4-12.4); Monocytes Absolute Auto 0.6 X10*3/uL (0.1-1.2); Monocytes Percent Auto 12.4 % (2-11); Neutrophils Absolute Auto 3.2 x10*3/uL (2.0-8.3); Neutrophils Percent Auto 62.8 % (45-73); Platelet Count 204 X10*3/uL (160-400); Red Blood Count 4.46 X10*6/uL (4.60-5.80); Red Cell Distribution Width 12.4 % (11.0-16.0)
[2024-07-03 10:43] LABS: Alanine Aminotransferase 28 U/L (0-40); Alkaline Phosphatase 68 U/L (39-117); Anion Gap 8 (12-20); Aspartate Amino Transferase 29 U/L (5-37); Bilirubin Total 0.8 mg/dL (0.0-1.0); Blood Urea Nitrogen 19 mg/dL (9-16); Calcium 9.4 mg/dL (8.4-10.2); Carbon Dioxide 25 mmol/L (22-29); Chloride 113 mmol/L (96-108); Cholesterol 111 mg/dL (<200); Estimated Glomerular Filt Rate > 60; Glucose Fasting 88 mg/dL (60-99); HDL Cholesterol 35 mg/dL (>40); LDL Cholesterol Calculated 63 mg/dL (<100); Potassium 4.7 mmol/L (3.3-5.1); Sodium 141 mmol/L (135-145); TSH reflex Free T4 1.51 uIU/mL (0.32-4.0); Triglycerides 67 mg/dL (<150)
== END 2024-07-03 06:51 | disposition home or self-care (01) ==
LOC: HO.HMGCLDS 06:50
PROVIDERS: PCP Nurse Practitioner Family; Visit Provider Nurse Practitioner Family
DX: I10 Essential (primary) hypertension (principal); E78.5 Hyperlipidemia, unspecified
CPT/HCPCS: 36415; 80053; 80061; 81003; 84443; 85025

== ENCOUNTER 2024-09-19 09:14 | Outpatient (AMB) | payer MEDICARE, SELFPAY ==
--- NOTE | 2024-09-19 09:22 | A.OFFVIS_ITS ---
Vital Signs 09/19/24 09:23 Height 5 ft 5 in Weight 197 lb 5.019 oz BMI 32.8 BP 108/72 Blood Pressure Location Rt brachial Position Sitting Pulse 53 Pulse Source Pulse Oximeter Pulse Oximetry (%) 97 Oxygen Delivery Method Room Air Intake Visit Reasons: ILD Allergies No Known Allergies [No Known Allergies*] Allergy (Verified 09/19/24 09:25) HPI Comments Details: The patient is 73-year-old gentleman known history of obstructive sleep apnea on CPAP, cardiac arrhythmias and also an aortic aneurism. The patient was referred for CT scan of the chest to address the underlying aortic aneurysm and was found to have underlying parenchymal disease. I personally viewed the CT scan with him. Appears that he has some areas of ground-glass opacities and mosaic pattern. This is pretty diffuse bilaterally. Does have some more reticular changes at the bases suggesting little more scarring. Clinically the patient denies any significant shortness of breath or cough. Denies any wheezing. He does not have any respiratory limitations at this time. 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 He worked mainly with [employer]. No exposure to any paper Ortega and no exposure to any laser printing. He did not use a mask. As far as other exposures he denies any smoking. He denies any exposure to any mold or animals. He does have a dog does not have any Bird. Denies any hobbies working with any inorganic dust or any other fumes or toxins. Did this could have been a result of a occupational exposure and pneumoconiosis. Although at this point it may be burnt out and the patient is fairly asymptomatic. Will continue to monitor him closely to make sure there has no progression of disease. Additional blood work will be reasonable to request this time. 09/14/2023 the patient is here for a pulmonary follow-up visit. Overall he continues to do well. Denies any significant shortness of breath or wheezing or coughing. He does not feel like his respiratory symptoms limit his activity. The patient does continue on the Asmanex HFA twice a day. He is tolerating it well without any adverse effects. Again we did look at his previous CT scan that he had back in May demonstrating the evidence of mosaic pattern and ground-glass opacities suggesting pneumonitis. The patient did undergo pulmonary function studies which we personally reviewed demonstrating a mild restrictive ventilatory defect consistent with the findings previously. In addition to that the patient did undergo blood work without any evidence of any connective tissue diseases or allergic or hypersensitivity reactions to explain the findings. Since the patient is doing well will go ahead and continue with the inhaler at this time and plan to repeat the CT scan in [address] scan shows improvement. If there is any worsening of disease or any persistent findings then further diagnostic interventions may be warranted. 12/20/2023 the patient is here for pulmonary follow-up visit. The patient overall has been doing well. His breathing is better. He has tolerating the Asmanex inhaler. Denies any significant shortness breath. He does have intermittent cough. Mild in severity. We did review his recent CT scan of the chest which has not been formally read yet. We are able to compare to his CT scan that he had back in the winter of 2022. It appears that the ground-glass opacities have significantly improved. I will see any evidence of any worsening disease. Will await the final read at this time hold off on any additional imaging studies. Also can try decrease the Asmanex to once a day. We did review the blood work no evidence of any connective tissue disease. 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 In regards to the CPAP the CPAP therapy has been affecting beneficial. He did bring the machine in in his AHI is slightly elevated at 5.5. It appears that he needs additional pressure settings. Therefore switched him from a CPAP of 11 to an APAP of 9-14. He also needs a new mask. I did send a request [facility] [employer] [facility] him for an appointment in order for him to be fitted for a different mask. I do believe that he likes the p30i, which she can try and see if that works for him. 09/19/2024 the patient is here for a pulmonary follow-up visit. Overall the patient has been doing well. He continues uses CPAP every night. The CPAP therapy continues to be affecting beneficial. The patient has been wondering about surgical procedure such as the inspire, hypoglossal nerve stimulator or the Airlift surgical procedure. I did reassuring that he seems to be tolerating CPAP well and these surgical procedures have potential limited effects and or adverse effects. Therefore recommendations for him to continue CPAP for now. Will continue to discuss it. The patient also has been using the Asmanex because of the episode of pneumonitis. But his last CT scan was stable the patient is doing well she will going to talk about decreasing the dose some. He does have elevated IgE level so will keep him on some medications specially during the spring months. In addition to that is wondering about the gabapentin. He is okay stopping the gabapentin at this time. We did talk about what to look for in case he needs to restart the gabapentin. Hopefully we can simplify his medication regimen. Also, on a CT scan that he had back in the summer 2023 the patient did have pulmonary nodules that do need follow-up along with a dilated aorta. Will plan to follow-up with a repeat CAT scan in the fall of 2024 and address dose to findings. [facility] Medical History (Updated 09/19/24 @ 12:51 by Ras Christianson MD) Pulmonary nodules Hyperlipidemia ILD (interstitial lung disease) Pneumonitis Restless legs syndrome (RLS) BARTOLO (obstructive sleep apnea) Essential hypertension Hx of skin cancer, basal cell Surgical History Hx of colonoscopy Hx of hernia repair Hx of arthroscopic knee surgery Family History Father No problems noted. Mother No problems noted. Brother Parkinson disease Brother No problems noted. Sister Pacemaker Sister No problems noted. Son No problems noted. Social History Household Members: [facility] Alcohol intake: never Patient Tobacco Use Status: Never used Tobacco e-Cigarette/Vaping Use: Never Used Second Hand Smoke Exposure: No Current occupational status: retired Cognitive needs: No Hearing needs: No Vision needs: Yes Review of Systems Const Denies weakness ENT Denies dizziness Card Denies chest pain, Denies palpitations, Denies dyspnea and Denies dyspnea on exertion Resp Denies cough, Denies dyspnea, Denies dyspnea on exertion and Denies wheezing GI Denies hematochezia and Denies change in stool character Musc Denies abnormal gait Skin/Breast Denies rash Neuro Denies abnormal gait, Denies dizziness and Denies weakness Endo Denies palpitations Shade/Lymph Denies easy bruising and Denies lymphadenopathy Aller/Immun Denies wheezing Physical Exam Vital Signs: Last Vital Signs Pulse 53 09/19/24 09:23 BP 108/72 09/19/24 09:23 Pulse Ox 97 09/19/24 09:23 Oxygen Delivery Method Room Air 09/19/24 09:23 BMI result Body Mass Index 32.8 Const General: comfortable and no acute distress Orientation/consciousness: patient oriented x3 HEENT Other: Unremarkable Head: Yes normal to inspection Neck Neck: Yes normal visual inspection Chest Chest palpation & inspection: normal inspection of the chest Resp Effort & Inspection: normal respiratory effort Auscultation: clear to auscultation bilaterally and no rales Cardio Heart sounds: S1 normal heart sound present and S2 normal heart sound present GI Palpation (GI): Soft to palpation Back/Spine/Pelvis Other: unremarkable Skin General skin exam: no rashes or lesions noted Neuro General: patient oriented x3 Extrem General: Yes normal to inspection Psych Mental Status: mental status grossly normal Assessment & Plan Assessment & Plan (1) Pneumonitis: Comment: resolved Code(s): J98.4 - Other disorders of lung Category: Medical (2) BARTOLO (obstructive sleep apnea): Code(s): G47.33 - Obstructive sleep apnea (adult) (pediatric) Category: Medical (3) ILD (interstitial lung disease): Code(s): J84.9 - Interstitial pulmonary disease, unspecified Category: Medical (4) Ascending aortic aneurysm: Code(s): I71.21 - Aneurysm of the ascending aorta, without rupture Category: Medical Qualifiers: Presence of rupture: without rupture Qualified Code(s): I71.21 - Aneurysm of the ascending aorta, without rupture Plan continue Asmanex, decrease to MWF Ok to hold Gabapentin, restart for insomnia, daytime drowsiness and or restleg leg syndrome continue CPAP, Needs a new mask, requesting mask clinic and try P30i repeat CT chest 02/2025 follow-up in 6-8 months Orders: Orders CT chest wo IV con 02/19/25 J98.4 - Other disorders of lung, R91.8 - Other nonspecific abnormal finding of lung field Coding Level of Care Code Est Pt Level 4 (37474) Complex EM visit Add On G2211 Diagnoses Pneumonitis J98.4 BARTOLO (obstructive sleep apnea) G47.33 ILD (interstitial lung disease) J84.9 Aneurysm of ascending aorta without rupture I71.21 Presence of rupture: without rupture Time Spent (min) 17
[2024-09-19 09:23] VITALS: BP 108/72; PULSE 53; O2SAT 97; BMI 32.8
--- OUTSIDE RECORDS SUMMARY | 2024-09-19 10:16 | XMS_ITS ---
Author Organization [facility] Address [address] [place] [address] Care Team Providers Care Applications Engineering Manager Name Role Phone PARISH FUCHS Primary Care Provider Turner Bustamante [phone] REASON FOR VISIT screening, hx polyps Problems Problem Type SNOMED Code ICD Code Onset Dates Problem Status W/U Status Risk Notes Problem Diverticular disease of colon (576009117) Diverticulosis of large intestine without perforation or abscess without bleeding (K57.30) Active confirmed Encounters Encounter Location Date Provider Diagnosis [facility] Outpatient [address] [place] [phone] 12/01/2023 Turner Barrera Encounter for scre ening [...] Information Progress Notes * LANA HURST LDOB:1950 (73 yo M)Acc No.[id number]:12/01/2023 COLON WITH MAC Patient:?LANA HURST Provider:?uTrner Barrera MD :1950???Age:73 Y???Sex:Male Clifford e:12/01/2023 Address:[address] [place] [address] [facility] [id number] Pcp:PARISH FUCHS Subjective: * Chief Complaints: * ???1. Screening, hx polyps. * Medical History:? Objective: * Vitals:? Assessment: * Assessment: 1.?Encounter for screening c olonoscopy - Z12.11 (Primary)???2.?Personal history of colonic polyps - Z86.010???3.?Diverticulosis of large intestine without perforation or abscess without bleeding - K57.30???4.?Other hemorrhoids - K64.8??? Plan: * Treatment: * Procedure Codes:?79247 DIAGN OSTIC COLONOSCOPY * Preventive Medicine:? ??DAMARIS Screening:?Colonoscopy?Was interval between colonoscopies three years or more??Yes,?Was last colonoscopy performed three or more years ago??Yes.? * * The named appointment provid er may or may not be the originator of this progress note, and it is not deemed complete until electronically signed by the appointment provider. Sign off status: Pending * Provider:?Turner Barrera MD Date:? 024 Generated for Onelia griffin/Sissy/Aguedasmitting on:?09/19/2024 10:15 AM EDT
--- OUTSIDE RECORDS SUMMARY | 2024-09-19 10:16 | XMS_ITS | Patient Health Record ---
Author Organization [facility] Address [address] [place] [address] Care Team Providers Care Geospatial Technologist Name Role Phone PARISH FUCHS Primary Care Provider Turner Bustamante Unavailable [phone] Allergies No Known Allergies Reason For Referral No Information Medications Medication SIG (Take, Route, Frequency, Duration) Notes [...] 1 tablet Orally Once a day Active Immunizations Vaccine Route Administration Date Status Comme nts Influenza Unknown 05/13/2023 Administered Social History Tobacco Use: Social History Observation Description Date Details (start date - stop date) Never Smoker NA - NA Tobacco Use/Smoking Question Answer Notes Patient is a nonsmoker Alcohol Screen Question Answer Notes Did you have a drink containing alcohol in the p ast year? No Points 0 Interpretation Negative Section Notes: Nonsmoker; no sig alcohol Nonsmoker; no sig alcohol Problems Problem Type SNOMED Code ICD Code Onset Dates Problem Status W/U Status Risk Notes Problem 689226287 Encounter for screening for malignant neoplasm of colon (Z12.11) Active confirmed Problem History of polyp of colon (situation) (806437036) Personal history of colonic polyps (Z86.010) Active confirmed Problem Pre-procedure evaluation check (751143696) Encounter for other preprocedural examination (Z01.818) Active confirmed Problem Diverticular disease of colon (063453899) Diverticulosis of large intestine without perforation or abscess without bleeding (K57.30) Active confirmed Problem 092130472 Hx of adenomatou s colonic polyps (Z86.010) Active confirmed Problem [id number] Pre-procedural examination (Z01.818) Active confirmed Encounters Encounter Location Date Provider Diagnosis [facility] [place] [address] [place] [phone] 12/01/2023 Turner Barrera Encounter for scre ening [...] hemorrhoids (ICD-10 - K64.8) Plan Of Treatment Future Test Test Name Order Date COLONOSCOPY 03/10/2018 COLONOSCOPY 09/13/2023 Insurance Providers Payer Name Payer Address Payer Phone Subscriber Number Group Number Insured Name Patient Relationship to Insured Coverage Start Date Coverage End Date [facility] [address] [place] [phone] [id number] LANA HURST Self - patient is the insured Medical (General) History Medical History History ICD Code Denies NM,DM,CVA,Lung disease,renal dise ase Rapid heartbeat --Sharda matthew in November,--baseline EKG abnormalities--sees Dr. Luis [...]
--- OUTSIDE RECORDS SUMMARY | 2024-09-19 10:16 | XMS_ITS ---
Author Organization [facility] Address [address] [place] [address] Care Team Providers Care Batch Records Clerk Name Role Phone PARISH FUCHS Primary Care Provider Turner Bustamante Unavailable [phone] Allergies No Known Allergies REASON FOR VISIT Patient presents today for a COLON SCREENING Medications Medication SIG (Take, Route, Frequency, Duration) [...] Gabapentin 300 MG Oral for 90 Active Social History Tobacco Use: Social History Observation Description Date Details (start date - stop date) Never Smoker NA - NA Tobacco Use/Smoking Question Answer Notes Patient is a nonsmoker Section Notes: Nonsmoker; no sig alcohol Problems Problem Type SNOMED Code ICD Code Onset Dates Problem Status W/U Status Risk Notes Problem History of polyp of colon (situation) (129815193) Personal history of colonic polyps (Z86.010) Active confirmed Problem Pre-procedure evaluation check (290191091) Encounter for other preprocedural examination (Z01.818) Active confirmed Vital Signs Temperature 97.8 degrees Fahrenheit 08/24/19 24 Blood pressure systolic 000 mm Hg 08/24/19 24 Blood pressure diastolic 000 mm Hg 024 Height 66 in 08/24/2023 Weight 201 lbs 08/24/2023 BMI 32.44 kg/m2 08/24/2023 Encounters Encounter Location Date Provider Diagnosis [facility] [address] [place] [address] 08/24/2023 Turner Barrera Encounter for screen ing for malignant neoplasm of colon Z12.11 ; Encounter for other preprocedural examination Z01.818 and Personal history of colonic polyps Z86.010 Assessments Encounter Date Diagnosis (ICD Code) Assessment Notes Treatment Notes Treatment Clinical Notes Section Notes 08/24/2023 Encounter for screening for malignant neoplasm of colon (ICD-10 - Z12.11) Overall, Sujit appears well. Given his personal history of tubular adenomas of the colon and his last colonoscopy being over 5 years ago, I did recommend a followup colonoscopy for further screening purposes. We did review the rationale for this in regard to colon cancer prevention. Full consent is obtained for this, including risks of bleeding and perforation. The procedure will be done with monitored anesthesia care. Sujit is comfortable with this plan. Thank you again for allowing me to participate in Sujit's care. I shall continue to keep you advised of his progress. 08/24/2023 Encounter for other preprocedural examination (ICD-10 - Z01.818) Overall, Sujit appears well. Given his personal history of tubular adenomas of the colon and his last colonoscopy being over 5 years ago, I did recommend a followup colonoscopy for further screening purposes. We did review the rationale for this in regard to colon cancer prevention. Full consent is obtained for this, including risks of bleeding and perforation. The procedure will be done with monitored anesthesia care. Sujit is comfortable with this plan. Thank you again for allowing me to participate in Sujit's care. I shall continue to keep you advised of his progress. 08/24/2023 Personal history of colonic polyps (ICD-10 - Z86.010) Overall, Sujit appears well. Given his personal history of tubular adenomas of the colon and his last colonoscopy being over 5 years ago, I did recommend a followup colonoscopy for further screening purposes. We did review the rationale for this in regard to colon cancer prevention. Full consent is obtained for this, including risks of bleeding and perforation. The procedure will be done with monitored anesthesia care. Sujit is comfortable with this plan. Thank you again for allowing me to participate in Sujit's care. I shall continue to keep you advised of his progress. Plan Of Treatment Future Test Test Name Order Date COLONOSCOPY 09/13/2023 Next Appt Details Follow Up: prn, Reason: Progress Notes * LANA HURST LDOB:1950 (72 yo M)Acc No.[id number]:08/24/2023 Progress Notes Patient:?LANA HURST Provider:?Turner Barrera MD :1950???Age:72 Y???Sex:Male Clifford e:08/24/2023 Address:[address] [place] [address] [id number] Pcp:PARISH FUCHS Subjective: * Chief Complaints: * ???Patient presents today fo r a COLON SCREENING * HPI: ???incontinence:? I saw Sujit in the office today for evaluation of his personal history of tubular adenomas of the colon and need for colorectal cancer screening. ?I last saw Sujit in April 2018, at which time he underwent a followup screening colonoscopy the with removal of 2 small tubular adenomas. He presently feels very well. He enjoys a good appetite, without any significant heartburn or dysphagia. His bowel movements have been regular, without any hematochezia nor melena. He denies abdominal pain, jaundice, nor weight loss. He denies any known family history of colon cancer ?Laboratories from just last month revealed a normal CBC, chemistries and renal function, and liver profile. * ROS:?General/Constitutional:?Change in appetite?denies.?Chills?denies.?Fatigue?denies.?Ophthalmologic:?Comments?all negative.?ENT:?Comments?all negative.?Respiratory:?hemoptysis?denies.?Cough?denies.?Cardiovascular:?Chest pain?denies.?Orthopnea?denies.?Gastrointestinal:?Comments?See HPI for details.?Genitourinary:?Hematuria?denies.?Dysuria?denies.?Musculoskeletal:?Painful joints?denies.?Weakness?denies.?Skin:?Itching?denies.?Rash?denies.?Neurologic:?Headache?denies.?Seizures?denies.?Psychiatric:?Comments?all negative.? * Medical History:? * Surgical History:?Torn ligam ent left knee Basal cell skin cancers * Hospitalization/Major Diagno stic Procedure:?No Hospitalization History. * Social History:?Tobacco Use:?Tobacco Use/Smoking?Patient is a?nonsmoker.?Miscellaneous:?Marital status: . 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 ???Nonsmoker; no sig alcohol. * Medications:?TakingVitamin D 3 50 MCG (1999) Capsule 1 capsule Orally Once a dayVitron-C 65-125 MG Tablet 1 tablet Orally Once a dayCartia XT 120 MG Capsule Extended Release 24 Hour 1 capsule Orally Once a dayAtorvastatin Calcium 40 MG Tablet 1 tablet Orally Once a dayLisinopril 10 MG Tablet 1 tablet Orally Once a dayGabapentin 300 MG Capsule Oral Medication List reviewed and reconciled with the patientTaking Vitamin D3 50 MCG (1999) Capsule 1 capsule Orally Once a dayTaking Vitron-C 65-125 MG Tablet 1 tablet Orally Once a dayTaking Cartia XT 120 MG Capsule Extended Release 24 Hour 1 capsule Orally Once a dayTaking Atorvastatin Calcium 40 MG Tablet 1 tablet Orally Once a dayTaking Lisinopril 10 MG Tablet 1 tablet Orally Once a dayTaking Gabapentin 300 MG Capsule Oral Medication List reviewed and reconciled with the patient * Allergies:?N.K.D.A.yes[Aller gies Verified] Objective: * Vitals:?Wt: 201 lbs, Ht: 66 in, BMI:32.44 Index, BP: 000/000 mm Hg, Temp: 97.8. * Examination: ???General Examination: ?GENERAL APPEARANCE:?pleasant, well nourished, well developed, in no acute distress.?EYES:?sclera non-icteric.?ORAL CAVITY:?mucosa moist.?NECK/THYROID:?no cervical lymphadenopathy, neck supple.?SKIN:?nonjaundiced, no spider angiomata.?HEART:?S1, S2 normal.?LUNGS:?clear to auscultation bilaterally.?ABDOMEN:?normal bowel sounds, no guarding or rigidity, no guarding or rigidity, no masses palpable, soft, nontender, nondistended.?EXTREMITIES:?no edema.?NEUROLOGIC:?alert and oriented.? Assessment: * Assessment: 1.?Encounter for other prepr ocedural examination - Z01.818 (Primary)?2.?Encounter for screening for malignant neoplasm of colon - Z12.11?3.?Personal history of colonic polyps - Z86.010? Overall, Sujit appears well. G iven his personal history of tubular adenomas of the colon and his last colonoscopy being over 5 years ago, I did recommend a followup colonoscopy for further screening purposes. We did review the rationale for this in regard to colon cancer prevention. Full consent is obtained for this, including risks of bleeding and perforation. The procedure will be done with monitored anesthesia care. Sujit is comfortable with this plan. Thank you again for allowing me to participate in Sujit's care. I shall continue to keep you advised of his progress. Plan: * Treatment: 2.?Personal history of colonic polyps?Procedure: COLONOSCOPY (Ordered for 09/13/2023)* with MAC * Procedure Codes:?3017F COLOR ECTAL CA SCREEN DOC [id number] TOBACCO NON-[id number] BP SCR NOT PRFRM REC REASON NOS * Preventive Medicine:? ??Counseling:?Care goal follow-up plan:?Above Normal BMI Follow-up?Giving encouragement to exercise,?BMI management provided?Yes.? * Follow Up:?prn * * Sign off status: Completed true * Provider:?Turner Barrera MD Date:? 024 Generated for Onelia griffin/Sissy/Fabianitting on:?09/19/2024 10:16 AM EDT History and Physical Notes * HPI (History of Present Illness) Category Sub-Category Detail Notes Category Not es incontinence I saw Sujit in the office today for evaluation of his personal history of tubular adenomas of the colon and need for colorectal cancer screening. I last saw Sujit in April 2018, at which time he underwent a followup screening colonoscopy the with removal of 2 small tubular adenomas. He presently feels very well. He enjoys a good appetite, without any significant heartburn or dysphagia. His bowel movements have been regular, without any hematochezia nor melena. He denies abdominal pain, jaundice, nor weight loss. He denies any known family history of colon cancer Laboratories from just last month revealed a normal CBC, chemistries and renal function, and liver profile. Examination Category Sub-Category Detail Notes Category Not es General Examination GENERAL APPEARANCE: pleasant , well [...]
== END 2024-09-19 09:52 | disposition home or self-care (01) ==
LOC: HO.HPS 09:15
PROVIDERS: PCP Nurse Practitioner Family; Visit Provider Hospitalist
DX: J98.4 Other disorders of lung (principal); G47.33 Obstructive sleep apnea (adult) (pediatric); J84.9 Interstitial pulmonary disease, unspecified; I71.21 Aneurysm of the ascending aorta, without rupture
CPT/HCPCS: 99214; G2211

== ENCOUNTER → 2024-09-19 09:14 | Outpatient (BNVA) | payer MEDICARE, SELFPAY | PROVIDERS: PCP Nurse Practitioner Family; Visit Provider Hospitalist | DX: J98.4 Other disorders of lung (principal); J84.9 Interstitial pulmonary disease, unspecified; I71.21 Aneurysm of the ascending aorta, without rupture; R91.8 Other nonspecific abnormal finding of lung field; G47.33 Obstructive sleep apnea (adult) (pediatric); Z99.89 Dependence on other enabling machines and devices | CPT/HCPCS: 99212 ==

== ENCOUNTER 2024-12-25 08:04 | Outpatient (AMB) | payer MEDICARE, SELFPAY ==
--- OUTSIDE RECORDS SUMMARY | 2023-12-01 04:30 | XMS_ITS ---
Author Organization [facility] Address [address] [place] [address] Care Team Providers Care Field Mechanic Name Role Phone PARISH FUCHS Primary Care Provider Turner Bustamante [phone] REASON FOR VISIT screening, hx polyps Problems Problem Type SNOMED Code ICD Code Onset Dates Problem Status W/U Status Risk Notes Problem Diverticulosis o f large intestine without perforation or abscess without bleeding (K57.30) Active confirmed Encounters Encounter Location Date Provider Diagnosis [facility] [place] [address] [place] [phone] 12/01/2023 Turner Barrera Encounter for scre ening [...] * LANA HURST LDOB:1950 (74 yo M)Acc No.[id number]:12/01/2023 COLON WITH MAC Patient: LANA BLEVINS Provider: Fidencio Barrera MD :1950 A ge:73 Y S ex:Male Date:12/01/2023 Address:[address] [place] [address] SERGIO DAILY-[id number] Pcp:PARISH FUCHS Subjective: * Chief Complaints: * [...] 0 12/01/2023 Generated for Onelia griffin/Sissy/Aguedasmitting on: 0 12/25/2024 08:09 AM EDT
[2024-12-25 08:17] VITALS: BP 110/70; PULSE 66; O2SAT 97; BMI 32.9
--- NOTE | 2024-12-25 08:17 | A.OFFPC_ITS ---
Vital Signs 12/25/24 08:17 Height 5 ft 5 in Weight 198 lb BMI 32.9 BP 110/70 Blood Pressure Location Lt brachial Position Sitting Pulse 66 Pulse Source Pulse Oximeter Pulse Oximetry (%) 97 Oxygen Delivery Method Room Air Intake Visit Reasons: PE - see comments Corporate Legal Intern Required: No Accompanied by: Self / Same As Patient Allergies No Known Allergies (No Known Allergies*) Allergy (Verified 12/25/24 08:17) Tobacco use date assessed: 12/25/24 Fall risk assessment: No Falls in past year Last assessed Fall Risk: 12/25/24 Dental Screening Dental Screen Date: 12/25/24 Did you have a dental visit in the last 12 months?: Yes Did you have a dental problem in the last 6 months where you did not have access to dental care?: No Was dental information given to patient?: Patient has dentist HPI PE - see comments HPI Details History of Present Illness The patient is a 74-year-old male presenting for a physical examination. He regularly visits a ecommerce project manager and a internet marketing strategist for ongoing care. 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 He does not currently see a collections and archives director but continues to monitor his skin for any abnormalities. During the examination, faint crackles were noted at the right lung base, although the lungs were otherwise clear. The patient denies experiencing any chest pain, increased shortness of breath, or other respiratory symptoms. He reports feeling well overall and denies any gastrointestinal symptoms such as blood in stool, constipation, or diarrhea. Health Maintenance - Regular follow-ups with cardiology and pulmonology Social History Review of Systems - Respiratory: Denies chest pain, increa sed shortness of breath - Gastrointestinal: Denies blood in stoo l, constipation, diarrhea - Neurological: Denies headache, dizzine ss - General: Reports feeling well overall Physical Exam General: Cooperative, healthy appearing, comfortable, no acute distress and well developed, obese Orientation: Patient oriented x3 Limitations: No limitations Head: Normal to inspection Ears: Hearing grossly normal bilaterally Nose: Normal external nose present Face and sinus: Normal facial exam Eyes: Appearance normal, both eyes and all related structures Neck: Normal visual inspection and Yes full ROM Respiratory: Fairly clear, with very faint crackles at the right base. Able to speak in complete sentences. Cardiovascular: Regular rate and rhythm. S1 and S2 GI: Normal to inspection. Soft to palpation and nontender : Testicles without masses/lesions and no hernias appreciated Skin: No abnormal skin lesions noted currently (skin tags to back) Neuro: Patient oriented x3 Extremities: Normal to inspection Results Plan The patient will continue regular follow-ups with his ecommerce project manager and internet marketing strategist to monitor his cardiovascular and respiratory health. He is advised to maintain vigilance in monitoring his skin for any new lesions, given his history of carcinoma. [facility] Medical History Pulmonary nodules Hyperlipidemia ILD (interstitial lung disease) Pneumonitis Restless legs syndrome (RLS) BARTOLO (obstructive sleep apnea) Essential hypertension Hx of skin cancer, basal cell Surgical History Hx of colonoscopy Hx of hernia repair Hx of arthroscopic knee surgery Family History Father No problems noted. Mother No problems noted. Brother Parkinson disease Brother No problems noted. Sister Pacemaker Sister No problems noted. Son No problems noted. Social History Household Members: Spouse Housing: Condominium Alcohol intake: never Patient Tobacco Use Status: Never used Tobacco e-Cigarette/Vaping Use: Never Used Second Hand Smoke Exposure: No Current occupational status: retired Cognitive needs: No Hearing needs: No Vision needs: Yes Questionnaire PHQ-9 Over the last 2 weeks, how often have you been bothered by any of the following problems? 1. Little interest or pleasure in doing things: not at all 2. Feeling down, depressed, or hopeless: not at all 3. Trouble falling or staying asleep, or sleeping too much: not at all 4. Feeling tired or having little energy: not at all 5. Poor appetite or overeating: not at all 6. Feeling bad about yourself - or that you are a failure or have let yourself or your family down: not at all 7. Trouble concentrating on things, such as reading the newspaper or watching television: not at all 8. Moving or speaking so slowly that other people could have noticed. Or the opposite - being so fidgety or restless that you have been moving around a lot more than usual: not at all 9. Thoughts that you would be better off or of hurting yourself in some way: not at all Total score: 0 Depression Screening Interpretation: Negative Depression Screening Done: Yes 74910 - PHQ-9 Billing: Yes Source: Developed by Drs. Turner Jennings, Aleena Middleton, Ezio Trujillo and colleagues, with an educational valerie from [employer]. Thrive Questionnaire Date Thrive assessed: 12/25/24 I am a: Patient What is your living situation today?: I have a steady place to live Within the past 12 months, did the food you bought not last and you didn't have the money to get more?: Never true Within the past 12 months, did you worry whether your food would run out before you got money to buy more?: Never true Do you have trouble paying for medicines?: No Do you have trouble getting transportation to medical appointments?: No Do you have trouble paying your heating and electricity bill?: No Do you have trouble taking care of your child, family member or friend?: No Do you have trouble with day-to-day activities such as bathing, preparing meals, shopping, managing finances, etc.?: No Are you currently unemployed and looking for a job?: No Are you interested in more education?: No Please select the resources that you would like help with: None Currently or been in a relationship where the following occur: No concerns reported THRIVE Score: 0 AUDIT C Alcohol Use Questionnaire (AUDIT-C) 1. How often do you have a drink containing alcohol?: Never 3. How often do you have six or more drinks on one occasion?: Never Total Score: 0 Score Reviewed/Action Taken: Yes SEVERO-7 AMB Questionnaire SEVERO-7 Date SEVERO - 7 assessed: 12/25/24 Feeling nervous, anxious, or on edge: 0 = Not at all Not being able to stop or control worryin = Not at all Worrying too much about different things: 0 = Not at all Trouble relaxin = Not at all Being so restless that it is hard to sit still: 0 = Not at all Becoming easily annoyed or irritable: 0 = Not at all Feeling afraid as if something awful might happen: 0 = Not at all Total SEVERO-7 score (0-4 normal; 5-9 mild; 10-14 moderate; 15-21 severe): 0 Source: Developed by Drs. Turner Jennings, Aleena Middleton, Ezio Trujillo and colleagues, with an educational valerie from [employer]. SEVERO-7 Assessment Billing SEVERO-7 Assessment Tool: SEVERO-7 Assessment 17983 Physical exam (Primary Care) Vital Signs: Last Vital Signs Pulse 66 12/25/24 08:17 BP 110/70 12/25/24 08:17 Pulse Ox 97 12/25/24 08:17 Oxygen Delivery Method Room Air 12/25/24 08:17 BMI result Body Mass Index 32.9 Tobacco/Smoking Status: Tobacco use Status Tobacco use date assessed 12/25/24 12/25/24 08:18 Patient Tobacco Use Status Never used Tobacco 12/25/24 08:18 e-Cigarette/Vaping Use Never Used 12/25/24 08:18 PHQ-9: PHQ-9 Score PHQ-9: Total score 0 12/25/24 08:18 Depression Screening Interpretation: Negative Thrive Assessment: Date of Thrive Assessment Date Thrive assessed 12/25/24 12/25/24 08:18 Currently or been in a relationship where the following occur: No concerns reported Coding Level of Care Code Est Pt Prev Care >65y(49445) Diagnoses Hyperlipidemia E78.5 Screening PSA (prostate specific antigen) Z12.5 Physical exam Z00.00 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 ILD (interstitial lung disease) J84.9 Additional Codes SEVERO-7 Assessment Billing - SEVERO-7 Assessment Tool: SEVERO-7 Assessment 47136 ([id number]) PHQ-9 - 01737 - PHQ-9 Billing: Yes ([id number]) Assessment & Plan Assessment & Plan (1) Hyperlipidemia: Code(s): E78.5 - Hyperlipidemia, unspecified Category: Medical (2) Screening PSA (prostate specific antigen): Code(s): Z12.5 - Encounter for screening for malignant neoplasm of prostate Category: Medical (3) Physical exam: Code(s): Z00.00 - Encounter for general adult medical examination without abnormal findings Category: Medical (4) Apical variant hypertrophic cardiomyopathy: Code(s): I42.2 - Other hypertrophic cardiomyopathy Category: Medical (5) ILD (interstitial lung disease): Code(s): J84.9 - Interstitial pulmonary disease, unspecified Category: Medical Plan . Orders: Orders TSH reflex Free T4 Today E78.5 - Hyperlipidemia, unspecified UA CC w/rflx Micro + Cult Today E78.5 - Hyperlipidemia, unspecified Lipid Panel Today E78.5 - Hyperlipidemia, unspecified Prostate Specific Antigen Scr Today Z12.5 - Encounter for screening for malignant neoplasm of prostate Complete Blood Count Auto Diff Today E78.5 - Hyperlipidemia, unspecified Comprehensive [place]. Panel Fast Today E78.5 - Hyperlipidemia, unspecified
== END 2024-12-25 09:03 | disposition home or self-care (01) ==
LOC: HO.HMCC 08:05
PROVIDERS: PCP Nurse Practitioner Family; Visit Provider Nurse Practitioner Family
DX: Z00.00 Encounter for general adult medical examination without abnormal findings (principal); I42.2 Other hypertrophic cardiomyopathy; J84.9 Interstitial pulmonary disease, unspecified; E78.5 Hyperlipidemia, unspecified; Z12.5 Encounter for screening for malignant neoplasm of prostate

== ENCOUNTER → 2024-12-25 08:04 | Outpatient (BNVA) | payer MEDICARE, SELFPAY | PROVIDERS: PCP Nurse Practitioner Family; Visit Provider Nurse Practitioner Family | DX: Z00.00 Encounter for general adult medical examination without abnormal findings (principal); J84.9 Interstitial pulmonary disease, unspecified; I42.2 Other hypertrophic cardiomyopathy; E78.5 Hyperlipidemia, unspecified | CPT/HCPCS: 96127; 99397 ==

== ENCOUNTER 2025-01-15 07:19 | Outpatient (REF) | payer MEDICARE, SELFPAY ==
[2025-01-15 10:08] LABS: MANUAL DIFF FLAG NO
[2025-01-15 10:18] LABS: Hematocrit 40.3 % (42.0-52.0); Hemoglobin 13.5 g/dl (14.0-18.0); Imm Gran Abs Auto 0.06 X10*3/uL (0.00-0.03); Imm Gran Pct Auto 0.9 % (0.0-0.4); Lymphocytes Absolute Auto 1.1 X10*3/uL (1.2-4.9); Mean Corpuscular HGB Conc 33.5 g/dl (31.0-36.0); Mean Corpuscular Hemoglobin 31.2 pg (27.0-33.0); Mean Corpuscular Volume 93.1 fL (80.0-98.0); NRBC Abs Auto 0.000 X10*3/uL (0.0-0.012); NRBC Pct Auto 0.0 /100WBC (0.0-0.2); Platelet Count 262 X10*3/uL (160-400); Red Blood Count 4.33 X10*6/uL (4.60-5.80); White Blood Count 7.0 X10*3/uL (4.8-10.8)
[2025-01-15 10:28] LABS: Appearance Urine Clear; Glucose Urine UA Negative (Negative); PH 5.5 (5.0-9.0); Specific Gravity - Urine 1.015 (1.005-1.025); UMIC TRIGGER UACC YES
[2025-01-15 10:46] LABS: UACC Culture Trigger YES
[2025-01-15 10:56] LABS: Alanine Aminotransferase 26 U/L (0-40); Albumin Level 3.9 g/dL (3.5-5.0); Alkaline Phosphatase 63 U/L (39-117); Anion Gap 11 (12-20); Aspartate Amino Transferase 32 U/L (5-37); Blood Urea Nitrogen 18 mg/dL (9-16); Calcium 9.3 mg/dL (8.4-10.2); Carbon Dioxide 24 mmol/L (22-29); Chloride 110 mmol/L (96-108); Cholesterol 97 mg/dL (<200); Estimated Glomerular Filt Rate 58; HDL Cholesterol 25 mg/dL (>40); Potassium 5.0 mmol/L (3.3-5.1); Sodium 140 mmol/L (135-145); Total Protein 7.3 g/dL (6.5-8.0); Triglycerides 76 mg/dL (<150)
== END 2025-01-15 07:20 | disposition home or self-care (01) ==
LOC: HO.HMGCLDS 07:19
PROVIDERS: PCP Nurse Practitioner Family; Visit Provider Nurse Practitioner Family
DX: Z12.5 Encounter for screening for malignant neoplasm of prostate (principal); E78.5 Hyperlipidemia, unspecified
CPT/HCPCS: 36415; 80053; 80061; 81001; 84153; 84443; 85025; 87086

== ENCOUNTER 2025-01-17 07:09 | Outpatient (REF) | payer MEDICARE, SELFPAY ==
[2025-01-17 10:20] LABS: Reticulocytes Absolute 0.057 X10*6/uL (0.026-0.095)
[2025-01-17 10:41] LABS: Iron 63 mcg/dL (45-160); Percent Iron Saturation 35 % (15-50); Total Iron Binding Capacity 181 mcg/dL (228-428); Unsaturated Iron Binding 118 ug/dL
[2025-01-17 10:48] LABS: Ferritin 563 ng/mL (20-250)
[2025-01-17 11:04] LABS: Folate 12.9 ng/mL (> or = 4.0); Vitamin B12 415 pg/mL (200-900)
[2025-01-17 11:14] LABS: Appearance Urine Clear; Glucose Urine UA Negative (Negative); PH 6.0 (5.0-9.0); Specific Gravity - Urine 1.020 (1.005-1.025); UMIC TRIGGER UACC YES
[2025-01-17 11:23] LABS: UACC Culture Trigger YES
== END 2025-01-17 07:10 | disposition home or self-care (01) ==
LOC: HO.HMGCLDS 07:09
PROVIDERS: PCP Nurse Practitioner Family; Visit Provider Nurse Practitioner Family
DX: N41.9 Inflammatory disease of prostate, unspecified (principal); D64.9 Anemia, unspecified; R31.29 Other microscopic hematuria; R97.20 Elevated prostate specific antigen [PSA]
CPT/HCPCS: 36415; 81001; 81003; 82607; 82728; 82746; 83540; 83615; 85045; 87086; 87088; 88112; 99202

== ENCOUNTER 2025-01-17 11:27 | Outpatient (AMB) | payer MEDICARE, SELFPAY ==
--- NOTE | 2025-01-17 11:32 | MHC.OFFVIS ---
Intake Visit Reasons: elevated PSA/microscopic hematuria Intake Note: New patient presents today for initial visit for elevated PSA/Microscopic hematuria Urology Medication:none Blood Thinner:none Antibiotic Allergies:none Allergies No Known Allergies (No Known Allergies*) Allergy (Verified 01/17/25 11:34) HPI Comments Details: Jomar is a pleasant male. He is a patient of Dr. Kendrick. He seen for the following urologic conditions - elevated PSA Sudden jump in PSA On exam has boggy left side prostate No symptoms consistent with prostatitis but finding is suspicious Trial 2 weeks antibiotics with repeat lab work Elevated PSA PSA 02/11 2.3, 01/12 22 Urine culture at time of PSA negative PFSH Medical History Pulmonary nodules Hyperlipidemia ILD (interstitial lung disease) Pneumonitis Restless legs syndrome (RLS) BARTOLO (obstructive sleep apnea) Essential hypertension Hx of skin cancer, basal cell Surgical History Hx of colonoscopy Hx of hernia repair Hx of arthroscopic knee surgery Family History Father No problems noted. Mother No problems noted. Brother Parkinson disease Brother No problems noted. Sister Pacemaker Sister No problems noted. Son No problems noted. Social History Household Members: Spouse Housing: Condominium Alcohol intake: never Patient Tobacco Use Status: Never used Tobacco e-Cigarette/Vaping Use: Never Used Second Hand Smoke Exposure: No Current occupational status: retired Cognitive needs: No Hearing needs: No Vision needs: Yes Review of Systems Const Denies chills and Denies fever(s) Card Reports no additional complaints and Denies syncope Resp Denies cough GI Denies abdominal pain and Denies heartburn Reports as per HPI and Denies change in libido Neuro Denies syncope Psych Denies change in libido Endo Denies change in libido Physical Exam Const General: cooperative, healthy appearing, comfortable and no acute distress Orientation/consciousness: patient oriented x3 HEENT Face and sinus: Yes normal facial exam Mouth: moist mucous membranes Neck Neck: Yes normal visual inspection, Yes full ROM and Yes trachea midline Chest Chest palpation & inspection: normal inspection of the chest Resp Effort & Inspection: normal respiratory effort, able to speak in complete sentences and no respiratory distress GI Inspection: Yes normal to inspection Rectal Exam - Male: Yes normal sphincter tone and Yes prostate normal Male General Exam: Yes normal external exam Penis: normal penis and circumcised Meatus: meatus normal Scrotum: scrotum normal Testes: Testes normal Back/Spine/Pelvis Cervical Spine: normal cervical lordosis Thoracic/Lumbar Spine: thoracic and lumbar spine normal to inspection Skin General skin exam: no rashes or lesions noted Neuro General: patient oriented x3, gait normal, tone normal and moves all extremities Extrem General: Yes normal to inspection and Yes capillary refill normal Assessment & Plan Assessment & Plan (1) Prostatitis: Code(s): N41.9 - Inflammatory disease of prostate, unspecified Category: Medical Plan 2 weeks Levaquin Four week follow-up lab work Orders: Orders PSA,Total (Free>4and<10) 4 Weeks N41.9 - Inflammatory disease of prostate, unspecified Medications: New levofloxacin 500 mg PO DAILY 14 tabs 0RF 14 days N41.9 - Inflammatory disease of prostate, unspecified Patient Instructions: This note is constructed using voice recognition software. While every effort has been made to ensure accuracy transcription manager errors may have been included. Imaging studies, laboratory and physical exam results were discussed and reviewed in detail. No major barriers to patient understanding were identified. An opportunity to ask questions regarding the treatment plan was provided. All questions were answered. The patient expressed understanding and agreement with the above treatment plan. The patient is aware they should contact our office by phone for worsening of their current condition or the appearance of new urologic symptoms. Compliance is encouraged with any medications and followup testing that is ordered. It is a privilege to participate in the urologic care of your patient. If you have any questions or concerns regarding treatment for the above conditions, or other urologic issues, please do not hesitate to contact me. The office telephone contact is [phone]. Sincerely, Dr Braxton Mckeon MD, [facility] - Urology Compassionate Specialist Care for the Genitourinary System Coding Level of Care Code New Pt Level 4 (90237) Diagnoses Prostatitis N41.9
== END 2025-01-17 12:12 | disposition home or self-care (01) ==
LOC: HO.HUSH 11:28
PROVIDERS: PCP Nurse Practitioner Family; Visit Provider Urology
DX: N41.9 Inflammatory disease of prostate, unspecified (principal); Z13.9 Encounter for screening, unspecified
CPT/HCPCS: 99204

== ENCOUNTER 2025-02-13 06:44 | Outpatient (REF) | payer MEDICARE, SELFPAY ==
--- OUTSIDE RECORDS SUMMARY | 2023-12-01 04:30 | XMS_ITS ---
Author Organization [facility] Address [address] [place] [address] Care Team Providers Care Treating And Pumping Supervisor Name Role Phone PARISH FUCHS Primary Care Provider Turner Bustamante [phone] REASON FOR VISIT screening, hx polyps Problems Problem Type SNOMED Code ICD Code Onset Dates Problem Status W/U Status Risk Notes Problem Diverticular disease of colon (796863955) Diverticulosis of large intestine without perforation or abscess without bleeding (K57.30) Active confirmed Encounters Encounter Location Date Provider Diagnosis [facility] [place] [address] [place] [phone] 12/01/2023 Turner Barrera Encounter for scre ening [...] * LANA HURST LDOB:1950 (74 yo M)Acc No.[id number]:12/01/2023 COLON WITH MAC Patient: LANA BLEVINS Provider: Fidencio Barrera MD :1950 A ge:73 Y S ex:Male Date:12/01/2023 Address:[address] [place] [address] DORA DAILYSERGIO-[id number] Pcp:PARISH FUCHS Subjective: * Chief Complaints: * [...] 12/01/2023 Generated for Onelia griffin/Sissy/Fabianitting on: 0 02/13/2025 06:46 AM EDT
--- OUTSIDE RECORDS SUMMARY | 2025-02-13 06:47 | XMS_ITS | Patient Health Record ---
Author Organization [facility] Address [address] [place] [address] Care Team Providers Care Manufacturing Process Technician Name Role Phone PARISH FUCHS Primary Care Provider Turner Bustamante Unavailable [phone] Allergies No Known Allergies Reason For Referral [...] Problem Status W/U Status Risk Notes Problem 489427609 Encounter for screening for malignant neoplasm of colon (Z12.11) Active confirmed Problem History of polyp of colon (situation) (020011175) Personal history of colonic polyps (Z86.010) Active confirmed Problem Pre-procedure evaluation check (519628330) Encounter for other preprocedural examination (Z01.818) Active confirmed Problem Diverticular disease of colon (298171370) Diverticulosis of large intestine without perforation or abscess without bleeding (K57.30) Active confirmed Problem 421299118 Hx of adenomatou s colonic polyps (Z86.010) Active confirmed Problem 856850803705502 Pre-procedural examination (Z01.818) Active confirmed Plan Of Treatment Future Test Test Name Order Date COLONOSCOPY 03/10/2018 COLONOSCOPY 09/13/2023 Insurance Providers Payer Name Payer Address Payer Phone Subscriber Number Group Number Insured Name Patient Relationship to Insured Coverage Start Date Coverage End Date [facility] [address] [place] [phone] [id number] LANA HURST Self - patient is the insured Medical (General) History Medical History History ICD Code Denies [place],DM,CVA,Lung disease,renal dise ase Rapid heartbeat --Holter gissell [...]
[2025-02-13 10:25] LABS: Alanine Aminotransferase 23 U/L (0-40); Albumin Level 4.1 g/dL (3.5-5.0); Alkaline Phosphatase 73 U/L (39-117); Anion Gap 9 (12-20); Aspartate Amino Transferase 31 U/L (5-37); Blood Urea Nitrogen 15 mg/dL (9-16); Calcium 9.4 mg/dL (8.4-10.2); Carbon Dioxide 25 mmol/L (22-29); Chloride 111 mmol/L (96-108); Estimated Glomerular Filt Rate 56; Potassium 5.3 mmol/L (3.3-5.1); Sodium 140 mmol/L (135-145); Total Protein 7.0 g/dL (6.5-8.0)
[2025-02-13 10:54] LABS: PSA,Total (Free>4and<10) 3.93 ng/mL (0.00-4.00)
== END 2025-02-13 06:45 | disposition home or self-care (01) ==
LOC: HO.HMGCLDS 06:44
PROVIDERS: PCP Nurse Practitioner Family; Referring Provider Urology; Visit Provider Nurse Practitioner Family
DX: R31.29 Other microscopic hematuria (principal); N41.9 Inflammatory disease of prostate, unspecified; Z12.5 Encounter for screening for malignant neoplasm of prostate
CPT/HCPCS: 36415; 80053; 84153

== ENCOUNTER 2025-02-16 06:53 | Outpatient (REF) | payer MEDICARE, SELFPAY ==
--- OUTSIDE RECORDS SUMMARY | 2023-12-01 04:30 | XMS_ITS ---
Author Organization [facility] Address [address] [place] [address] Care Team Providers Care Nuisance Wildlife Specialist Name Role Phone PARISH FUCHS Primary Care Provider Turner Bustamante [phone] REASON FOR VISIT screening, hx polyps Problems Problem Type SNOMED Code ICD Code Onset Dates Problem Status W/U Status Risk Notes Problem Diverticular disease of colon (013184734) Diverticulosis of large intestine without perforation or abscess without bleeding (K57.30) Active confirmed Encounters Encounter Location Date Provider Diagnosis [facility] [place] [address] [place] [phone] 12/01/2023 Turner Barrera Encounter for scre ening [...] * LANA HURST LDOB:1950 (74 yo M)Acc No.[id number]:12/01/2023 COLON WITH MAC Patient: LANA BLEVINS Provider: Fidencio Brarera MD :1950 A ge:73 Y S ex:Male Date:12/01/2023 Address:[address] [place] [address] DORA DAILYSERGIO-[id number] Pcp:PARISH FUCHS Subjective: * Chief Complaints: * [...] 12/01/2023 Generated for Onelia griffin/Sissy/Fabianitting on: 0 02/16/2025 06:57 AM EDT
--- OUTSIDE RECORDS SUMMARY | 2025-02-16 06:57 | XMS_ITS | Patient Health Record ---
Author Organization [facility] Address [address] [place] [address] Care Team Providers Care Fork Repairer Name Role Phone PARISH FUCHS Primary Care Provider Turner Bustamante Unavailable [phone] Allergies No Known Allergies Reason For Referral [...] Problem Status W/U Status Risk Notes Problem 551181135 Encounter for screening for malignant neoplasm of colon (Z12.11) Active confirmed Problem History of polyp of colon (situation) (758034178) Personal history of colonic polyps (Z86.010) Active confirmed Problem Pre-procedure evaluation check (285601902) Encounter for other preprocedural examination (Z01.818) Active confirmed Problem Diverticular disease of colon (432989398) Diverticulosis of large intestine without perforation or abscess without bleeding (K57.30) Active confirmed Problem 143472433 Hx of adenomatou s colonic polyps (Z86.010) Active confirmed Problem 354416341023490 Pre-procedural examination (Z01.818) Active confirmed Plan Of Treatment Future Test Test Name Order Date COLONOSCOPY 03/10/2018 COLONOSCOPY 09/13/2023 Insurance Providers Payer Name Payer Address Payer Phone Subscriber Number Group Number Insured Name Patient Relationship to Insured Coverage Start Date Coverage End Date [facility] [address] [place] [phone] [id number] LANA HURST Self - patient is the insured Medical (General) History Medical History History ICD Code Denies [place],DM,CVA,Lung disease,renal dise ase Rapid heartbeat --Holter gissell [...]
[2025-02-16 11:23] LABS: Anion Gap 12 (12-20); Carbon Dioxide 22 mmol/L (22-29); Chloride 110 mmol/L (96-108); Potassium 4.3 mmol/L (3.3-5.1); Sodium 140 mmol/L (135-145)
== END 2025-02-16 06:54 | disposition home or self-care (01) ==
LOC: HO.HMGCLDS 06:53
PROVIDERS: PCP Nurse Practitioner Family; Visit Provider Nurse Practitioner Family
DX: E87.5 Hyperkalemia (principal)
CPT/HCPCS: 36415; 80051

== ENCOUNTER 2025-02-27 07:40 | Outpatient (REF) | payer MEDICARE, SELFPAY ==
--- OUTSIDE RECORDS SUMMARY | 2023-12-01 04:30 | XMS_ITS ---
Author Organization [facility] Address [address] [place] [address] Care Team Providers Care Crayon Grader Name Role Phone PARISH FUCHS Primary Care Provider Turner Bustamante [phone] REASON FOR VISIT screening, hx polyps Problems Problem Type SNOMED Code ICD Code Onset Dates Problem Status W/U Status Risk Notes Problem Diverticular disease of colon (696222070) Diverticulosis of large intestine without perforation or abscess without bleeding (K57.30) Active confirmed Encounters Encounter Location Date Provider Diagnosis [facility] Outpatient [address] [place] [phone] 12/01/2023 Turner Barrera Encounter for scre ening [...] * LANA HURST LDOB:1950 (74 yo M)Acc No.[id number]:12/01/2023 COLON WITH MAC Patient: LANA BLEVINS Provider: Fidencio Barrera MD :1950 A ge:73 Y S ex:Male Date:12/01/2023 Address:[address] [place] [address] DORA DAILYSERGIO-[id number] Pcp:PARISH FUCHS Subjective: * Chief Complaints: * [...] MD Date: 0 12/01/2023 Generated for Onelia griffin/Sissy/Fabianitting on: 0 02/27/2025 07:44 AM EDT
--- NOTE | ~2025-02-27 | CT_ITS ---
CLINICAL HISTORY: R31.29 - Other microscopic hematuria CT abdomen and pelvis with and without contrast Comparison: CT/NH/SR - CT ABDOMEN PELVIS WITH IV CONTRAST - 12/16/18 15:48 EDT Findings: The lung bases are clear. Couple simple hepatic cysts are seen measuring up to 1.6 cm. There is fatty atrophy of the pancreas. Subcentimeter hypodensity in the right kidney is too small to characterize. 2.7 cm and 1.5 cm simple left renal cysts are present. Couple additional subcentimeter left renal hypodensities are too small to characterize. Mild nonspecific bilateral perinephric stranding is present. There is no evidence of nephrolithiasis or obstructive urolithiasis. The gallbladder, spleen, and bilateral adrenal glands appear within normal limits. There is no evidence of bowel obstruction. The appendix is not visualized. There is no pneumoperitoneum or ascites. Small fat containing umbilical hernia. Urinary bladder wall thickening is seen with mild trabeculation. The prostate gland is enlarged in size with a transverse diameter of 5.6 cm. Fat containing bilateral hernias present. Mild degenerative changes are seen in the spine. No acute osseous abnormality is identified. No aggressive lytic or blastic lesion is seen. IMPRESSION: 1. No evidence nephrolithiasis or obstructive urolithiasis. 2. Urinary bladder wall thickening with mild trabeculation. Recommend correlation with urinalysis. 3. Enlarged prostate gland. 4. Other findings as described. This document has been electronically signed by: Simone Garza on 02/28/2025 08:24:22
--- NOTE | ~2025-02-27 | CT_ITS ---
CLINICAL HISTORY: R91.8 - Other nonspecific abnormal finding of lung field CT chest without contrast Comparison: CT/REG/OR/SR - CT CHEST WITHOUT IV CONTRAST - 12/15/23 09:01 EDT Findings: The thyroid gland appears normal. There is no mediastinal, hilar, or axillary lymphadenopathy. Heart is normal in size. There is no pericardial effusion. Coronary artery calcifications are present. The ascending aorta is dilated at 4.6 cm, unchanged. Mild bronchiectasis is seen in the medial right lower lobe. Nonspecific 3 mm left apical nodule is unchanged (axial image 8 of series 3). There is no focal consolidation or pleural effusion. Limited examination of the upper abdomen demonstrates couple of hepatic cysts measuring up to 1.6 cm. 2.6 cm left renal cyst is also seen. Moderate degenerative changes are seen in the spine. No acute osseous abnormality is identified. No aggressive lytic or blastic lesion is seen. IMPRESSION: 1. Mild bronchiectasis in the medial right lower lobe. 2. Coronary artery calcifications. 3. Dilated 4.6 cm ascending aorta, unchanged. This document has been electronically signed by: Simone Garza on 02/28/2025 08:09:49
--- OUTSIDE RECORDS SUMMARY | 2025-02-27 07:45 | XMS_ITS | Patient Health Record ---
Author Organization [facility] Address [address] [place] [address] Care Team Providers Care Oracle Fusion Middleware Developer Name Role Phone PARISH FUCHS Primary Care Provider Turner Bustamante Unavailable [phone] Allergies No Known Allergies Reason For Referral [...] Problem Status W/U Status Risk Notes Problem 156222243 Encounter for screening for malignant neoplasm of colon (Z12.11) Active confirmed Problem History of polyp of colon (situation) (940904285) Personal history of colonic polyps (Z86.010) Active confirmed Problem Pre-procedure evaluation check (445149233) Encounter for other preprocedural examination (Z01.818) Active confirmed Problem Diverticular disease of colon (437535487) Diverticulosis of large intestine without perforation or abscess without bleeding (K57.30) Active confirmed Problem 148464715 Hx of adenomatou s colonic polyps (Z86.010) Active confirmed Problem 670556423558067 Pre-procedural examination (Z01.818) Active confirmed Plan Of Treatment Future Test Test Name Order Date COLONOSCOPY 03/10/2018 COLONOSCOPY 09/13/2023 Insurance Providers Payer Name Payer Address Payer Phone Subscriber Number Group Number Insured Name Patient Relationship to Insured Coverage Start Date Coverage End Date [facility] [address] [place] [phone] [id number] LANA HURST Self - patient is the insured Medical (General) History Medical History History ICD Code Denies [place],DM,CVA,Lung disease,renal dise ase Rapid heartbeat --Holter gissell [...]
[2025-02-27] MEDS: iohexoL 350 MG/ML 100 ML INFUS..BTL 85 ML IV (08:36)
== END 2025-02-27 07:41 | disposition home or self-care (01) ==
LOC: HO.CT 07:40
PROVIDERS: PCP Nurse Practitioner Family; Visit Provider Nurse Practitioner Family
DX: R31.29 Other microscopic hematuria (principal); R91.8 Other nonspecific abnormal finding of lung field; J98.4 Other disorders of lung
CPT/HCPCS: 71250; 74178; Q9967

== ENCOUNTER → 2025-02-27 07:43 | Outpatient (BNV) | payer MEDICARE, SELFPAY | PROVIDERS: PCP Nurse Practitioner Family; Visit Provider Radiology Vascular & Interventional Radiology | DX: I25.10 Atherosclerotic heart disease of native coronary artery without angina pectoris (principal); R31.29 Other microscopic hematuria; N32.89 Other specified disorders of bladder; N40.0 Benign prostatic hyperplasia without lower urinary tract symptoms | CPT/HCPCS: 71250; 74178 ==

== ENCOUNTER 2025-03-01 11:20 | Outpatient (AMB) | payer MEDICARE, SELFPAY ==
--- OUTSIDE RECORDS SUMMARY | 2023-12-01 04:30 | XMS_ITS ---
Author Organization [facility] Address [address] [place] [address] Care Team Providers Care Shelf Drier Operator Name Role Phone PARISH FUCHS Primary Care Provider Turner Bustamante [phone] REASON FOR VISIT screening, hx polyps Problems Problem Type SNOMED Code ICD Code Onset Dates Problem Status W/U Status Risk Notes Problem Diverticular disease of colon (646553064) Diverticulosis of large intestine without perforation or abscess without bleeding (K57.30) Active confirmed Encounters Encounter Location Date Provider Diagnosis [facility] Out[place] [address] [place] [phone] 12/01/2023 Turner Barrera Encounter for scre ening [...] * LANA HURST LDOB:1950 (74 yo M)Acc No.[id number]:12/01/2023 COLON WITH MAC Patient: LANA BLEVINS Provider: Fidencio Barrera MD :1950 A ge:73 Y S ex:Male Date:12/01/2023 Address:[address] [place] [address] DORA DAILYSERGIO-[id number] Pcp:PARSIH FUCHS Subjective: * Chief Complaints: * 1 [...] 12/01/2023 Generated for Onelia griffin/Sissy/Fabianitting on: 0 03/01/2025 03:37 PM EDT
--- NOTE | 2025-03-01 11:20 | MHC.OFFVIS ---
Intake Visit Reasons: 6w/Labs Intake Note: patient presents today for: 6wk labs urology medications: levofloxacin blood thinners: none labs done 02/13/25: PSA 3.93 Seat Pack Inspector Required: No Accompanied by: Self / Same As Patient Allergies No Known Allergies (No Known Allergies*) Allergy (Verified 03/01/25 11:21) HPI Comments Details: Jomar is a pleasant male. He is a patient of Dr. Kendrick. He seen for the following urologic conditions - elevated PSA Telemedicine Evaluation 15 min Consultation [employer] Roni Video Sudden PSA jump consistent with prostatitis Repeat PSA 3.[address] urogram shows enlarged prostate, mild bladder wall thickening. He reports minimal symptoms Elevated PSA PSA 02/11 2.3, 01/12 22, 02/12 3.9 Urine culture at time of PSA negative PFSH Medical History Pulmonary nodules Hyperlipidemia ILD (interstitial lung disease) Pneumonitis Restless legs syndrome (RLS) BARTOLO (obstructive sleep apnea) Essential hypertension Hx of skin cancer, basal cell Surgical History Hx of colonoscopy Hx of hernia repair Hx of arthroscopic knee surgery Family History Father No problems noted. Mother No problems noted. Brother Parkinson disease Brother No problems noted. Sister Pacemaker Sister No problems noted. Son No problems noted. Social History Household Members: Spouse Housing: Condominium Alcohol intake: never Patient Tobacco Use Status: Never used Tobacco e-Cigarette/Vaping Use: Never Used Second Hand Smoke Exposure: No Current occupational status: retired Cognitive needs: No Hearing needs: No Vision needs: Yes Review of Systems Const All systems reviewed & are unremarkable except as noted in HPI and below Reports no additional complaints Resp Reports no additional complaints GI Reports no additional complaints Reports as per HPI Musc Reports no additional complaints Physical Exam Telemedicine evaluation Appropriate responses Regular breathing rate and rhythm HEENT Head: Yes normal to inspection Ears: hearing grossly normal bilaterally Eyes General: appearance normal, both eyes and all related structures Neck Neck: Yes normal visual inspection Chest Chest palpation & inspection: normal inspection of the chest Resp Effort & Inspection: normal respiratory effort and able to speak in complete sentences Telehealth Telehealth [facility]health [facility] Location of provider rendering services: practice address Location of patient: address on file Patient Identification confirmed using: Name, : Yes Telehealth method: voice only Patient verbally consented to treatment: Yes Patient verbally consented to billing insurance company: Yes Patient informed of any privacy concerns related to visit: Yes Minutes spent on Phone/Video with Pt.: 15 Assessment & Plan Assessment & Plan (1) Prostatitis: Code(s): N41.9 - Inflammatory disease of prostate, unspecified Category: Medical Plan Twelve month follow-up check PSA Orders: Orders PSA,Total (Free>4and<10) 12 Months N41.9 - Inflammatory disease of prostate, unspecified Patient Instructions: This note is constructed using voice recognition software. While every effort has been made to ensure accuracy fingerprint technician errors may have been included. Imaging studies, laboratory and physical exam results were discussed and reviewed in detail. No major barriers to patient understanding were identified. An opportunity to ask questions regarding the treatment plan was provided. All questions were answered. The patient expressed understanding and agreement with the above treatment plan. The patient is aware they should contact our office by phone for worsening of their current condition or the appearance of new urologic symptoms. Compliance is encouraged with any medications and followup testing that is ordered. It is a privilege to participate in the urologic care of your patient. If you have any questions or concerns regarding treatment for the above conditions, or other urologic issues, please do not hesitate to contact me. The office telephone contact is [phone]. Sincerely, Dr Braxton Mckeon MD, [facility] - Urology Compassionate Specialist Care for the Genitourinary System Coding Level of Care Code Tele Est Pt Level 3 (29162) Complex EM visit Add On G2211 Diagnoses Prostatitis N41.9
--- OUTSIDE RECORDS SUMMARY | 2025-03-01 15:38 | XMS_ITS | Patient Health Record ---
Author Organization [facility] Address [address] [place] [address] Care Team Providers Care Junior Copywriter Name Role Phone PARISH FUCHS Primary Care Provider Turner Bustamante Unavailable [phone] Allergies No Known Allergies Reason For Referral [...] Problem Status W/U Status Risk Notes Problem [id number] Encounter for screening for malignant neoplasm of colon (Z12.11) Active confirmed Problem History of polyp of colon (situation) (292262573) Personal history of colonic polyps (Z86.010) Active confirmed Problem Pre-procedure evaluation check (566831085) Encounter for other preprocedural examination (Z01.818) Active confirmed Problem Diverticular disease of colon (223321494) Diverticulosis of large intestine without perforation or abscess without bleeding (K57.30) Active confirmed Problem 522918527 Hx of adenomatou s colonic polyps (Z86.010) Active confirmed Problem [id number] Pre-procedural examination (Z01.818) Active confirmed Plan Of Treatment Future Test Test Name Order Date COLONOSCOPY 03/10/2018 COLONOSCOPY 09/13/2023 Insurance Providers Payer Name Payer Address Payer Phone Subscriber Number Group Number Insured Name Patient Relationship to Insured Coverage Start Date Coverage End Date [facility] [address] [place] [phone] [id number] LANA HURST Self - patient is the insured Medical (General) History Medical History History ICD Code Denies CT,DM,CVA,Lung disease,renal dise ase Rapid heartbeat --Holter gissell [...]
== END 2025-03-01 11:53 | disposition home or self-care (01) ==
LOC: HO.HUSH 11:20
PROVIDERS: PCP Nurse Practitioner Family; Visit Provider Urology
DX: N41.9 Inflammatory disease of prostate, unspecified (principal)
CPT/HCPCS: 99213; G2211

== ENCOUNTER 2025-04-27 09:03 | Outpatient (AMB) | payer MEDICARE, SELFPAY ==
--- OUTSIDE RECORDS SUMMARY | 2023-12-01 03:30 | XMS_ITS ---
Author Organization [facility] Address [address] [place] [address] Care Team Providers Care Chipper Name Role Phone PARISH FUCHS Primary Care Provider Turner Bustamante [phone] REASON FOR VISIT screening, hx polyps Problems Problem Type SNOMED Code ICD Code Onset Dates Problem Status W/U Status Risk Notes Problem Diverticular disease of colon (998319796) Diverticulosis of large intestine without perforation or abscess without bleeding (K57.30) Active confirmed Encounters Encounter Location Date Provider Diagnosis [facility] Outpatient [address] [place] [phone] 12/01/2023 Turner Barrera Encounter for scre ening colonoscopy Z12.11 ; Personal history of colonic polyps Z86.010 ; Diverticulosis of large intestine without perforation or abscess without bleeding K57.30 and Other hemorrhoids K64.8 Assessments Encounter Date Diagnosis (ICD Code) Assessment Notes Treatment Notes Treatment Clinical Notes Section Notes 12/01/2023 Encounter for screening colonoscopy (ICD-10 - Z12.11) 12/01/2023 Personal history of colonic polyps (ICD-10 - Z86.010) 12/01/2023 Diverticulosis of large intestine without perforation or abscess without bleeding (ICD-10 - K57.30) 12/01/2023 Other hemorrhoids (ICD-10 - K64.8) Plan Of Treatment No Information Progress Notes * LANA HURST LDOB:1950 (74 yo M)Acc No.[id number]:12/01/2023 COLON WITH MAC Patient: LANA BLEVINS Provider: Fidencio Barrera MD :1950 A ge:73 Y S ex:Male Date:12/01/2023 Address:[address] [place] [address] DORA DAILY SERGIO-[id number] Pcp:PARISH FUCHS Subjective: * Chief Complaints: * 1 . Screening, hx polyps. * Medical History: Objective: * Vitals: Assessment: * Assessment: 1. E ncounter for screening colonoscopy - Z12.11 (Primary) 2 . P ersonal history of colonic polyps - Z86.010 3 . D iverticulosis of large intestine without perforation or abscess without bleeding - K57.30 4 . O ther hemorrhoids - K64.8? Plan: * Treatment: * Procedure Codes: 4 5378 DIAGNOSTIC COLONOSCOPY * Preventive Medicine: DAMARIS Screening: C olonoscopy W as interval between colonoscopies three years or more? Y es, W as last colonoscopy performed three or more years ago? Y es. * * The named appointment provid er may or may not be the originator of this progress note, and it is not deemed complete until electronically signed by the appointment provider. Sign off status: Pending * Provider: Fidencio Barrera MD Date: 0 12/01/2023 Generated for Onelia griffin/Sissy/Aguedasmitting on: 1 06/27/2024 10:05 AM EST
[2025-04-27 09:05] VITALS: BP 104/60; PULSE 60; O2SAT 96; BMI 33.4
--- NOTE | 2025-04-27 09:05 | MHC.OFFVIS ---
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 The patient was referred for CT scan of the chest to address the underlying aortic aneurysm and was found to have underlying parenchymal disease. I personally viewed the CT scan with him. Appears that he has some areas of ground-glass opacities and mosaic pattern. This is pretty diffuse bilaterally. Does have some more reticular changes at the bases suggesting little more scarring. Clinically the patient denies any significant shortness of breath or cough. Denies any wheezing. He does not have any respiratory limitations at this time. 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 He worked mainly with [employer]. No exposure to any paper Ortega and no exposure to any laser printing. He did not use a mask. As far as other exposures he denies any smoking. He denies any exposure to any mold or animals. He does have a dog does not have any Bird. Denies any hobbies working with any inorganic dust or any other fumes or toxins. Did this could have been a result of a occupational exposure and pneumoconiosis. Although at this point it may be burnt out and the patient is fairly asymptomatic. Will continue to monitor him closely to make sure there has no progression of disease. Additional blood work will be reasonable to request this time. 09/14/2023 the patient is here for a pulmonary follow-up visit. Overall he continues to do well. Denies any significant shortness of breath or wheezing or coughing. He does not feel like his respiratory symptoms limit his activity. The patient does continue on the Asmanex HFA twice a day. He is tolerating it well without any adverse effects. Again we did look at his previous CT scan that he had back in May demonstrating the evidence of mosaic pattern and ground-glass opacities suggesting pneumonitis. The patient did undergo pulmonary function studies which we personally reviewed demonstrating a mild restrictive ventilatory defect consistent with the findings previously. In addition to that the patient did undergo blood work without any evidence of any connective tissue diseases or allergic or hypersensitivity reactions to explain the findings. Since the patient is doing well will go ahead and continue with the inhaler at this time and plan to repeat the CT scan in [address] scan shows improvement. If there is any worsening of disease or any persistent findings then further diagnostic interventions may be warranted. 12/20/2023 the patient is here for pulmonary follow-up visit. The patient overall has been doing well. His breathing is better. He has tolerating the Asmanex inhaler. Denies any significant shortness breath. He does have intermittent cough. Mild in severity. We did review his recent CT scan of the chest which has not been formally read yet. We are able to compare to his CT scan that he had back in the winter of 2022. It appears that the ground-glass opacities have significantly improved. I will see any evidence of any worsening disease. Will await the final read at this time hold off on any additional imaging studies. Also can try decrease the Asmanex to once a day. We did review the blood work no evidence of any connective tissue disease. 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 In regards to the CPAP the CPAP therapy has been affecting beneficial. He did bring the machine in in his AHI is slightly elevated at 5.5. It appears that he needs additional pressure settings. Therefore switched him from a CPAP of 11 to an APAP of 9-14. He also needs a new mask. I did send a request for his [employer] company, [place] to call him for an appointment in order for him to be fitted for a different mask. I do believe that he likes the p30i, which she can try and see if that works for him. 09/19/2024 the patient is here for a pulmonary follow-up visit. Overall the patient has been doing well. He continues uses CPAP every night. The CPAP therapy continues to be affecting beneficial. The patient has been wondering about surgical procedure such as the inspire, hypoglossal nerve stimulator or the Airlift surgical procedure. I did reassuring that he seems to be tolerating CPAP well and these surgical procedures have potential limited effects and or adverse effects. Therefore recommendations for him to continue CPAP for now. Will continue to discuss it. The patient also has been using the Asmanex because of the episode of pneumonitis. But his last CT scan was stable the patient is doing well she will going to talk about decreasing the dose some. He does have elevated IgE level so will keep him on some medications specially during the spring months. In addition to that is wondering about the gabapentin. He is okay stopping the gabapentin at this time. We did talk about what to look for in case he needs to restart the gabapentin. Hopefully we can simplify his medication regimen. Also, on a CT scan that he had back in the summer 2023 the patient did have pulmonary nodules that do need follow-up along with a dilated aorta. Will plan to follow-up with a repeat CAT scan in the fall of 2024 and address dose to findings. 04/27/2025 the patient is here for pulmonary follow-up visit. Overall the patient has been doing well. He continues with the Pulmicort 3 times a week seems to be responding well to that. Denies any shortness of breath. He is working on weight management. In addition continues with the CPAP. CPAP therapy has been affecting beneficial. Although he does have a dry mouth at times he takes off his mask prematurely. He is wondering about other alternatives for the CPAP. We did talk about an oral mandibular device which would be a good option for him to consider went for. He is going to look into it and call me if he wants a refill to a sleep dental Center. For now he will continue with the CPAP therapy. I did not advise him to consider any surgical procedures at this time. We did review his CT scan of the chest. He is reassuring no evidence of any interstitial lung disease just some residual bronchiectasis in the right lower lobe. Does have the ascending aorta ectasia which appears to be the same from before. He is still followed with Cardiology regarding that. The patient follow-up in a year's time if he has any issues prior to that he will call for an earlier assessment. [facility] Medical History Pulmonary nodules Hyperlipidemia ILD (interstitial lung disease) Pneumonitis Restless legs syndrome (RLS) BARTOLO (obstructive sleep apnea) Essential hypertension Hx of skin cancer, basal cell Surgical History Hx of colonoscopy Hx of hernia repair Hx of arthroscopic knee surgery Family History Father No problems noted. Mother No problems noted. Brother Parkinson disease Brother No problems noted. Sister Pacemaker Sister No problems noted. Son No problems noted. Social History Household Members: Spouse [facility] Alcohol intake: never Patient Tobacco Use Status: Never used Tobacco e-Cigarette/Vaping Use: Never Used Second Hand Smoke Exposure: No Current occupational status: retired Cognitive needs: No Hearing needs: No Vision needs: Yes Review of Systems Const Denies weakness ENT Denies dizziness Card Denies chest pain, Denies palpitations, Denies dyspnea and Denies dyspnea on exertion Resp Denies cough, Denies dyspnea, Denies dyspnea on exertion and Denies wheezing GI Denies hematochezia and Denies change in stool character Musc Denies abnormal gait Skin/Breast Denies rash Neuro Denies abnormal gait, Denies dizziness and Denies weakness Endo Denies palpitations Shade/Lymph Denies easy bruising and Denies lymphadenopathy Aller/Immun Denies wheezing Physical Exam Vital Signs: Last Vital Signs Pulse 60 04/27/25 09:05 BP 104/60 04/27/25 09:05 Pulse Ox 96 04/27/25 09:05 Oxygen Delivery Method Room Air 04/27/25 09:05 BMI result Body Mass Index 33.4 Const General: comfortable and no acute distress Orientation/consciousness: patient oriented x3 HEENT Other: Unremarkable Head: Yes normal to inspection Neck Neck: Yes normal visual inspection Chest Chest palpation & inspection: normal inspection of the chest Resp Effort & Inspection: normal respiratory effort Auscultation: clear to auscultation bilaterally and no rales Cardio Heart sounds: S1 normal heart sound present and S2 normal heart sound present GI Palpation (GI): Soft to palpation Back/Spine/Pelvis Other: unremarkable Skin General skin exam: no rashes or lesions noted Neuro General: patient oriented x3 Extrem General: Yes normal to inspection Psych Mental Status: mental status grossly normal Assessment & Plan Assessment & Plan (1) BARTOLO (obstructive sleep apnea): Code(s): G47.33 - Obstructive sleep apnea (adult) (pediatric) Category: Medical (2) ILD (interstitial lung disease): Code(s): J84.9 - Interstitial pulmonary disease, unspecified Category: Medical (3) Ascending aortic aneurysm: Code(s): I71.21 - Aneurysm of the ascending aorta, without rupture Category: Medical Qualifiers: Presence of rupture: without rupture Qualified Code(s): I71.21 - Aneurysm of the ascending aorta, without rupture Plan continue Asmanex, decrease to MWF Gabapentin, for insomnia continue CPAP, Needs a new mask, P30i follow-up in 6-8 months Coding Level of Care Code Est Pt Level 4 (01598) Complex EM visit Add On G2211 Diagnoses BARTOLO (obstructive sleep apnea) G47.33 ILD (interstitial lung disease) J84.9 Aneurysm of ascending aorta without rupture I71.21 Presence of rupture: without rupture Time Spent (min) 17
--- OUTSIDE RECORDS SUMMARY | 2025-04-27 10:05 | XMS_ITS | Patient Health Record ---
Author Organization [facility] Address [address] [place] [address] Care Team Providers Care Tree And Shrub Technician Name Role Phone PARISH FUCHS Primary Care Provider Turner Bustamante Unavailable [phone] Allergies No Known Allergies Reason For Referral No Information Medications Medication SIG (Take, Route, Frequency, Duration) Notes Start Date End Date Status Gabapentin 300 MG Oral; Duration: 90 Active Vitamin D3 50 MCG (1999) 1 capsule Or ally Once a day; Duration: 30 day(s) Active Vitron-C 65-125 MG 1 tablet Orally Once a day; Duration: 30 day(s) Active Cartia XT 120 MG [...] Problem Status W/U Status Risk Notes Problem Screening for malignant neoplasm of colon (360865984) Encounter for screening for malignant neoplasm of colon (Z12.11) Active confirmed Problem History of polyp of colon (situation) (865197753) Personal history of colonic polyps (Z86.010) Active confirmed Problem Pre-procedure evaluation check (211726065) Encounter for other preprocedural examination (Z01.818) Active confirmed Problem Diverticular disease of colon (368311000) Diverticulosis of large intestine without perforation or abscess without bleeding (K57.30) Active confirmed Problem History of adenomatous polyp of colon (366183409) Hx of adenomatous colonic polyps (Z86.010) Active confirmed Problem Pre-procedure evaluation check (009552216) Pre-procedural examination (Z01.818) Active confirmed Plan Of Treatment Future Test Test Name Order Date COLONOSCOPY 03/10/2018 COLONOSCOPY 09/13/2023 Insurance Providers Payer Name Payer Address Payer Phone Subscriber Number Group Number Insured Name Patient Relationship to Insured Coverage Start Date Coverage End Date [facility] [address] [place] [phone] [id number] LANA HURST Self - patient is the insured Medical (General) History Medical History History ICD Code Denies [place],DM,CVA,Lung disease,renal dise ase Rapid heartbeat --Sharda matthew in November,--baseline EKG abnormalities--sees Dr. Luis HTN Colonoscopy 01/2010 2 small tubular adeno mas and diverticulosis Hyperlipidemia Sleep apnea-uses cpap machine--Dr.Rani Kellee brionesya Colonoscopy 2017 with 2 small tubular ad enomas He sees Dr. Christianson for an abnormal CT scan of the chest from May of 2023, although he has no particular pulmonary symptoms. Surgical History Surgery Date(Month/Year) Torn ligament left knee Basal cell skin cancers
== END 2025-04-27 09:33 | disposition home or self-care (01) ==
LOC: HO.HPS 09:04
PROVIDERS: PCP Nurse Practitioner Family; Visit Provider Hospitalist
DX: G47.33 Obstructive sleep apnea (adult) (pediatric) (principal); J84.9 Interstitial pulmonary disease, unspecified; I71.21 Aneurysm of the ascending aorta, without rupture
CPT/HCPCS: 99214; G2211

== ENCOUNTER → 2025-04-27 09:03 | Outpatient (BNVA) | payer MEDICARE, SELFPAY | PROVIDERS: PCP Nurse Practitioner Family; Visit Provider Hospitalist | DX: G47.33 Obstructive sleep apnea (adult) (pediatric) (principal); I71.21 Aneurysm of the ascending aorta, without rupture; J84.9 Interstitial pulmonary disease, unspecified; R91.8 Other nonspecific abnormal finding of lung field; Z99.89 Dependence on other enabling machines and devices | CPT/HCPCS: 99212 ==

== ENCOUNTER → 2025-05-23 08:43 | Outpatient (REF) | payer MEDICARE, SELFPAY ==
--- NOTE | 2025-05-23 08:47 | CA_ITS ---
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 The visually estimated ejection fraction is between 60-65%. 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 - No obvious valvular pathology seen on this study. - Distal ascending aorta measures around 4.6 cm. Findings Left Ventricle Normal left ventricular cavity size. The left ventricular systolic function is normal. The visually estimated ejection fraction is between 60-65%. There is no evidence of regional wall motion abnormalities. Diastolic function is indeterminate on the basis of available data. There is moderate septal asymmetric hypertrophy. 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 Right Ventricle Normal right ventricular cavity size and systolic function. Atria The left atrium is moderately dilated. The right atrium is normal in size. Aortic Valve There is a normal trileaflet aortic valve. There is no aortic valve stenosis. There is trace (trivial) aortic valve regurgitation. Mitral Valve The mitral valve appears normal. There is trace mitral valve regurgitation. There is no mitral valve stenosis. Pulmonic Valve The pulmonic valve is likely normal. Tricuspid Valve There is mild tricuspid valve regurgitation. There is no evidence of pulmonary hypertension. Great Vessels Distal ascending aorta measures around 4.6 cm. Venous The inferior vena cava is mildly dilated and collapses greater than 50% with inspiration. Pericardium/Pleural There is no evidence of pericardial effusion. Prior Study Comparison No significant change compared to prior study dated: 01/03/2024. Recommendations, Care & Conclusions No obvious valvular pathology seen on this study. Measurements 2D Linear Measurements IVSd: 1.31 0.6-0.9/0.6-1.0 cm LVIDd: 4.60 3.9-5.3/4.2-5.9 cm LVIDd Index: 2.35 2.4-3.2/2.2-3.1 cm/m2 LVIDs: 3.02 2.0-3.6 cm LVPWd: 1.34 0.7-1.1 cm Ao Root: 3.80 2.1-3.5 cm LA Diam: 4.50 2.7-3.8/3.0-4.0 cm LAIDs Index: 2.30 1.5-2.3 cm/m2 LV Mass: 295.09 67-162/88-224 g LV Mass Index: 150.56 43-95/49-115 g/m2 LVOT Diam: 2.30 3.0+(-)1.3 cm 2D Systolic Function EF 4C: 60.60 >55% EF 2C: 59.60 >55% EF BiP: 59.00 >55% Mitral Valve MV Pk E: 0.77 MV Decel Time: 133.00 E'Lateral: 8.38 E'Medial: 8.38 E/E' Med: 9.20 E/E' Lat: 9.20 PHT: 39.00 MVA PHT: 5.64 Decel [place]: 5.78 Aortic Valve AoV Pk Nestor: 1.12 AoV Mn Nestor: 0.72 AoV VTI: 0.22 AoV Pk Grad: 5.00 Aov Mn Grad: 3.00 ANNIA Cont.VTI: 2.67 LVOT LVOT Pk Nestor: 0.88 LVOT Mn Nestor: 0.58 LVOT VTI: 0.14 LVOT Pk Grad: 3.00 LVOT Mn Grad: 2.00 LVOT Diam: 2.30 LVOT Area: 4.15 Diastolic Function MV Pk E: 0.77 E'Medial: 8.38 E/E' Med: 9.20 E' Laterial: 8.38 E/E' Lat: 9.20 Right Ventricle TAPSE (mm): 22.00 TVS' Nestor: 12.00 Tricuspid Valve TR Pk Nestor: 2.18 TR Pk Grad: 19.00 RA Press: 3.00 RVSP: 22.00 Great Vessels Aorta Ao Root-2D: 3.80 2.0-3.7 cm Ao Asc: 3.90 2.1-3.4 cm Pulmonary Valve PV Pk Nestor: 0.92 Peak PV Grad: 3.00 Updated in Other Vendor System with Status of Final Lorenzo Luis MD electronically signed on 05/25/2025 2:07:52 PM with status of Final
== END ==
LOC: HO.CARD 08:43
PROVIDERS: PCP Nurse Practitioner Family; Visit Provider Internal Medicine
DX: I42.2 Other hypertrophic cardiomyopathy (principal); I47.20 Ventricular tachycardia, unspecified
CPT/HCPCS: 93242; 93306

== ENCOUNTER → 2025-05-23 08:47 | Outpatient (BNV) | payer MEDICARE, SELFPAY | PROVIDERS: PCP Nurse Practitioner Family; Visit Provider Internal Medicine | DX: I42.2 Other hypertrophic cardiomyopathy (principal); I49.3 Ventricular premature depolarization | CPT/HCPCS: 93244; 93306 ==

== ENCOUNTER 2025-06-15 09:14 | Outpatient (REF) | payer MEDICARE, SELFPAY ==
--- OUTSIDE RECORDS SUMMARY | 2025-06-15 09:17 | XMS_ITS | Patient Health Record ---
Author Organization [facility] Address [address] [place] [address] Care Team Providers Care Assistant Cook Name Role Phone PARISH FUCHS Primary Care Provider Turner Bustamante [phone] Allergies No Known Allergies Reason For Referral No Information Medications Medication SIG (Take, Route, Frequency, Duration) Notes Start Date End Date Status Gabapentin 300 MG Capsule Oral; Duration: 90 Active Vitamin D3 50 MCG (1999) Capsule 1 capsule Orally Once a day; Duration: 30 day(s) Active Vitron-C 65-125 MG Tablet 1 tablet Orall y Once a day; Duration: 30 day(s) Active Cartia XT 120 MG Capsule Extended Release 24 Hour 1 capsule Orally Once a day Active Atorvastatin Calcium 40 MG Tablet 1 tablet Orally Once a day Active Lisinopril 10 MG Tablet 1 tablet Orally Once a day Active Immunizations Vaccine Route Administration Date Status Comme nts Influenza Unknown 05/13/2023 Administered Social History Tobacco Use: Social History Observation Description Date Details (start date - stop date) Never Smoker NA - NA Social History Drugs/Alcohol: Social Info Question Answer Notes Alcohol Screen Did you have a drink containing alcohol in the past year? 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 Section Notes: Nonsmoker; no sig alcohol Nonsmoker; no sig alcohol Problems Problem Type SNOMED Code ICD Code Onset Dates Problem Status W/U Status Risk Notes Problem Screening for malignant neoplasm of colon (116467577) Encounter for screening for malignant neoplasm of colon (Z12.11) Active confirmed Problem History of polyp of colon (situation) (735906701) Personal history of colonic polyps (Z86.010) Active confirmed Problem Pre-procedure evaluation check (765884191) Encounter for other preprocedural examination (Z01.818) Active confirmed Problem Diverticular disease of colon (549539278) Diverticulosis of large intestine without perforation or abscess without bleeding (K57.30) Active confirmed Problem History of adenomatous polyp of colon (635298424) Hx of adenomatous colonic polyps (Z86.010) Active confirmed Problem Pre-procedure evaluation check (197480634) Pre-procedural examination (Z01.818) Active confirmed Plan Of Treatment Future Test Test Name Order Date COLONOSCOPY 03/10/2018 COLONOSCOPY 09/13/2023 Insurance Providers Payer Name Payer Address Payer Phone Subscriber Number Group Number Insured Name Patient Relationship to Insured Coverage Start Date Coverage End Date [facility] [address] [place] [phone] [id number] LANA HURST Self - patient is the [...]
[2025-06-15 14:42] LABS: Hematocrit 42.9 % (42.0-52.0); Hemoglobin 14.3 g/dl (14.0-18.0); Mean Corpuscular HGB Conc 33.3 g/dl (31.0-36.0); Mean Corpuscular Hemoglobin 31.2 pg (27.0-33.0); Mean Corpuscular Volume 93.5 fL (80.0-98.0); NRBC Abs Auto 0.000 X10*3/uL (0.0-0.012); NRBC Pct Auto 0.0 /100WBC (0.0-0.2); Platelet Count 254 X10*3/uL (160-400); Red Blood Count 4.59 X10*6/uL (4.60-5.80); White Blood Count 7.5 X10*3/uL (4.8-10.8)
[2025-06-15 14:48] LABS: INTERNATIONAL NORM RATIO 1.4 (0.9-1.1); Prothrombin Time 17.1 SEC (11.2-13.5)
== END 2025-06-15 09:15 | disposition home or self-care (01) ==
LOC: HO.HMGCLDS 09:14
PROVIDERS: PCP Nurse Practitioner Family
DX: I48.91 Unspecified atrial fibrillation (principal)
CPT/HCPCS: 36415; 85027; 85610